=== PATIENT | female | born 1955 | race Caucasian/White ===

== ENCOUNTER 2016-05-11 13:45 | Inpatient (IN) | payer OTHER, MEDICARE ==
[~2016-05-11] VITALS: Ht 162.6 cm; Wt 98.5 kg
[~2016-05-11 13:45] MED LIST: BENA12.5 PO; EPIP0.3I IM; ERGO2000 PO; HYDR-3133 PO; LEVO-86 PO; LORA-361 PO; LORA-474 PO; OMEP20TA PO; ZENP PO; ZOLP10TA3 PO; ZYRT10CA PO
[2016-05-23] MEDS ORDERED: BETA0.0554 TOPICAL (10:47)
[2016-05-23] MEDS ORDERED: CHOL4POW3 PO (10:47)
[2016-05-23] MEDS ORDERED: TYLE325T PO (10:47)
[2016-05-23] MEDS ORDERED: CHOL5000 PO (13:49)
[2016-05-23] MEDS ORDERED: STOO100C PO (13:49)
[2016-05-24] MEDS ORDERED: SODIUM CHLORID 0.9% 500 ML IV SCH (05:45)
[2016-05-24] MEDS ORDERED: INSULIN HUMAN REGULAR 1,000 UNITS/10 ML VIAL SQ PRN (05:45)
[2016-05-24] MEDS ORDERED: METOPROLOL TARTRATE 25 MG TAB PO PRN (05:45)
[2016-05-24] MEDS ORDERED: VANCOMYCIN HCL 1000 MG ON-CALL/NS 250 ML IV SCH ×2 (05:45)
[2016-05-24 06:09] VITALS: BP 145/71; PULSE 81; RESP 18; TEMP 97.8; O2SAT 98
[2016-05-24] MEDS: LACTATED RINGER'S 1000 ML IV SCH (06:10)
[2016-05-24 06:43] LABS: AUTOMATED NEUTROPHIL # 2.6 TH/MM3 (1.8-7.7); BASOPHIL # 0.1 TH/MM3 (0-0.2); BASOPHIL % 1.1 % (0.0-2.0); EOSINOPHIL # 0.1 TH/MM3 (0-0.4); EOSINOPHIL % 1.9 % (0.0-4.0); HEMATOCRIT 36.5 % (35.0-46.0); HEMO FLAGS DIFF FINAL; LYMPH % 44.8 % (9.0-44.0); LYMPHOCYTE # 2.5 TH/MM3 (1.0-4.8); MEAN CELL VOLUME 80.7 FL (80.0-100.0); MEAN CORPUSCULAR HGB CONC 34.7 % (32.0-36.0); MONO % 6.6 % (0.0-8.0); NEUT % 45.6 % (16.0-70.0); PLATELET COUNT 208 TH/MM3 (150-450); RED BLOOD COUNT 4.52 MIL/MM3 (4.00-5.30); RED CELL DISTRIBUTION WIDTH 13.9 % (11.6-17.2); WHITE BLOOD COUNT 5.6 TH/MM3 (4.0-11.0)
[2016-05-24] MEDS ORDERED: MIDAZOLAM HCL 5 MG/5 ML VIAL ONE (06:43)
[2016-05-24] MEDS ORDERED: APREPITANT 40 MG CAP ONE (06:52)
[2016-05-24] MEDS ORDERED: BUPRENORPHINE HCL 0.3 MG/1 ML VIAL ONE (06:53)
[2016-05-24 06:54] LABS: BICARBONATE 26.5 MEQ/L (21.0-32.0); POTASSIUM 3.3 MEQ/L (3.5-5.1)
[2016-05-24] MEDS ORDERED: BUPIVACAINE LIPOSOME PF 1.3% 20 ML VIAL ONE (06:54)
[2016-05-24 06:59] LABS: APTT (PATIENT) 27.9 SEC (24.3-30.1); PROTHROMBIN TIME - PATIENT 11.4 SEC (9.8-11.6)
[2016-05-24] MEDS ORDERED: BUPIVACAINE/EPINEPHRINE 0.5% PF 30 ML VIAL ONE (07:07)
[2016-05-24] MEDS ORDERED: BUPIVACAINE/EPINEPHRINE 0.25% PF 30 ML VIAL ONE (07:07)
[2016-05-24] MEDS ORDERED: fentaNYL CITRATE 250 MCG/5 ML AMP ONE ×2 (07:23→08:50)
[2016-05-24] MEDS ORDERED: ONDANSETRON HCL 4 MG/2 ML VIAL IV PUSH ONE (08:53)
[2016-05-24] MEDS ORDERED: PHENYLEPH/NS 1000 MCG/10 ML SYR IV ONE (08:53)
[2016-05-24] MEDS ORDERED: NORMOSOL R INJ 1,000 ML IV ONE (08:53)
[2016-05-24] MEDS ORDERED: LACTATED RINGER'S 1000 ML INJ 2,000 ML IV ONE (08:53)
[2016-05-24] MEDS ORDERED: PROPOFOL 200 MG/20 ML AMP IV ONE (08:53)
[2016-05-24] MEDS ORDERED: SODIUM CHLORID 0.9% 500 ML INJ 500 ML IV ONE (08:53)
[2016-05-24] MEDS ORDERED: NEOSTIGMINE 3 MG/3 ML SYR IV ONE (08:53)
[2016-05-24] MEDS ORDERED: DO NOT ADM ANY ANTICOAGULANT DRUGS XX PRN (13:16)
--- NOTE | 2016-05-24 13:28 | HHI.PR ---
Immediate Post Op Note Procedure Date: May 24, 2016 Pre Op Diagnosis: (1) Ampullary adenoma Post Op Diagnosis: (1) Ampullary adenoma Surgeon: Bruno Beaulieu Climatology Teacher(s): staff Procedure: robotic assisted ampullectomy and placement of ampullary stent Findings: 1cm ampullary mass Complications: none Specimen(s) removed: ampullary adenoma Estimated blood loss: 50ml Anesthesia: General, Regional Block Drains: EMMA IVF Patient to: PACU Patient Condition: Good Bruno Beaulieu MD May 24, 2016 13:27
[2016-05-24] MEDS ORDERED: SODIUM CHLORIDE 0.9% FLUSH 5 ML FLUSH IVF PRN (13:30)
[2016-05-24] MEDS ORDERED: Post-op Orders (for Pharmacy) MISC XX ONE (13:30)
[2016-05-24] MEDS ORDERED: DEXTROSE 50% IN WATER 50 ML VIAL(D50) IV PUSH PRN (13:30)
[2016-05-24] MEDS ORDERED: NALOXONE HCL 0.4 MG/ML AMP IV PRN ×2 (13:30)
[2016-05-24] MEDS ORDERED: MORPHINE SULFATE 4 MG/ML INJ ONE (13:31)
[2016-05-24] MEDS: SODIUM CHLOR 0.9% 1000 ML INJ 1,000 ML IV SCH (13:45)
[2016-05-24] MEDS: PCA - TOTAL MG MORPHINE DELIVERED PER SHIFT SCH ×2 (14:00→21:56)
[2016-05-24] MEDS ORDERED: GLUCAGON 1 MG/ML VIAL OTHER PRN (14:00)
[2016-05-24] MEDS ORDERED: diphenhydrAMINE HCL 50 MG/ML VIAL IV PRN (14:00)
[2016-05-24] MEDS: ACETAMINOPHEN 1000 MG/100 ML VIAL IV SCH ×2 (14:09→19:58)
[2016-05-24] MEDS: metroNIDAZOLE 500 MG INJ 100 ML IV SCH ×2 (14:15→21:55)
[2016-05-24] MEDS: MORPHINE SULFATE 30 MG/30 ML PCA IV SCH (14:45)
[2016-05-24] MEDS: SODIUM CHLORIDE 0.9% FLUSH 5 ML FLUSH IVF SCH ×2 (15:00→19:59)
[2016-05-24 16:00] VITALS: BP 136/69; PULSE 87; RESP 17; TEMP 96.3; O2SAT 95
[2016-05-24] MEDS: INSULIN NovoLIN REGULAR SUPPLEMENTAL SCALE SQ SCH ×2 (16:00→20:06)
[2016-05-24] MEDS: PANTOPRAZOLE SODIUM 40 MG VIAL IV SCH (16:34)
[2016-05-24] MEDS: VANCOMYCIN INJ 1,000 MG in SODIUM CHLOR 0.9% 250 ML INJ 250 ML IV SCH (16:34)
[2016-05-24] MEDS: hydrOXYzine HCL 25 MG TAB PO SCH ×2 (16:50→21:55)
[2016-05-24 18:22] VITALS: O2SAT 95
[2016-05-24] MEDS: ONDANSETRON HCL 4 MG/2 ML VIAL IV PRN (19:59)
[2016-05-24] MEDS: LORATADINE 10 MG TAB PO SCH (19:59)
[2016-05-24 20:00] VITALS: BP 159/75; PULSE 90; RESP 18; TEMP 96.8; O2SAT 94
[2016-05-24 23:38] VITALS: BP 146/72; PULSE 86; RESP 18; TEMP 97.4; O2SAT 92
[2016-05-25] MEDS: ONDANSETRON HCL 4 MG/2 ML VIAL IV PRN ×2 (01:42→08:37)
[2016-05-25] MEDS: SODIUM CHLOR 0.9% 1000 ML INJ 1,000 ML IV SCH ×2 (01:42→08:55)
[2016-05-25] MEDS: ACETAMINOPHEN 1000 MG/100 ML VIAL IV SCH ×2 (01:42→08:36)
[2016-05-25] MEDS: VANCOMYCIN INJ 1,000 MG in SODIUM CHLOR 0.9% 250 ML INJ 250 ML IV SCH (03:06)
[2016-05-25] MEDS: LACTATED RINGER'S 1000 ML IV SCH (03:09)
[2016-05-25 04:00] VITALS: BP 111/61; PULSE 83; RESP 18; TEMP 97.7; O2SAT 92
[2016-05-25] MEDS: LEVOTHYROXINE SODIUM 150 MCG TAB PO SCH (04:06)
[2016-05-25] MEDS: metroNIDAZOLE 500 MG INJ 100 ML IV SCH (05:13)
[2016-05-25] MEDS: PCA - TOTAL MG MORPHINE DELIVERED PER SHIFT SCH ×3 (05:13→21:50)
[2016-05-25] MEDS: INSULIN NovoLIN REGULAR SUPPLEMENTAL SCALE SQ SCH ×4 (05:14→21:00)
[2016-05-25 06:06] LABS: AUTOMATED NEUTROPHIL # 11.4 TH/MM3 (1.8-7.7); BASOPHIL % 0.2 % (0.0-2.0); HEMATOCRIT 36.8 % (35.0-46.0); HEMO FLAGS DIFF FINAL; LYMPHOCYTE # 1.1 TH/MM3 (1.0-4.8); MEAN CELL VOLUME 82.6 FL (80.0-100.0); MEAN CORPUSCULAR HGB CONC 32.7 % (32.0-36.0); MONO % 6.1 % (0.0-8.0); NEUT % 85.7 % (16.0-70.0); PLATELET COUNT 240 TH/MM3 (150-450); RED BLOOD COUNT 4.46 MIL/MM3 (4.00-5.30); RED CELL DISTRIBUTION WIDTH 14.2 % (11.6-17.2); WHITE BLOOD COUNT 13.3 TH/MM3 (4.0-11.0)
[2016-05-25 06:42] LABS: BICARBONATE 26.9 MEQ/L (21.0-32.0); INDIRECT BILIRUBIN 0.3 MG/DL (0.0-0.8); POTASSIUM 3.7 MEQ/L (3.5-5.1); TOTAL BILIRUBIN ADULT 0.4 MG/DL (0.2-1.0)
--- NOTE | 2016-05-25 06:58 | MP ---
cc: JOSE D TWIARI DATE OF SURGERY 05/24/2016 PREOPERATIVE DIAGNOSIS Recurrent ampullary adenoma. POSTOPERATIVE DIAGNOSIS Recurrent ampullary adenoma. PROCEDURE 1. Robotic-assisted transduodenal ampullectomy 2. Placement of biliary stent SURGEON Jose D Tiwari MD ANESTHESIA General and regional tap block. BLOOD LOSS 50 cc COMPLICATIONS None FINDINGS Approximately a 1 cm irregular adenoma at the ampulla grossly completely excised with the ampule completely fulgurated 360 degrees around the biliary stent. INDICATIONS FOR PROCEDURE The patient is a 61-year-old female who has a history of ampullary adenoma. The patient has undergone several resections over the last several years and pathology has always returned adenoma. Despite multiple attempts at endoscopic section, the patient continues to fail this management. I had a discussion with the patient, the patient was referred for surgical evaluation. I discussed with the patient about the options including open versus robotic ampullectomy versus Whipple procedure and recommended a minimally invasive approach ampullectomy as the next mode of treatment. The patient does understand that this modality does also have a significant failure rate, however the patient would like to avoid major operations and Whipple procedure if it is possible. All questions were answered to her satisfaction and she agreed to the procedure. PROCEDURE After informed consent was obtained, the patient underwent a regional tap block and then was brought to the operating room theater and placed in a supine position and placed under general endotracheal anesthesia. The patient's abdomen was prepped and draped in a sterile fashion. The abdomen was entered through a Kenyon direct entry type technique. We made a small horizontal skin incision left of the umbilicus with a 15 blade scalpel. We dissected down into the subcutaneous tissue and directly spread open the anterior rectus sheath, the rectus muscles and the posterior rectus sheath. We then directly placed a 10-mm trocar into the abdomen under direct visualization. We insufflated the abdomen and placed a 5 mm camera. There was no evidence of any complication from entry. We then placed additional ports. We placed a 5 mm statistical assistant port in left lower quadrant, an 8 mm robot port in the left upper quadrant and two 8 mm robot ports in the right lower quadrant all under direct visualization with the laparoscope. We then docked SurveySnap SI robotic system without difficulty. We were able to use the robotic suction in arm three throughout the case, as well as fenestrated bipolar and graspers in arm two. We were able to use the vessel sealer device in arm one and dissect down the transverse colon and the hepatic flexure of the colon without difficulty. We also took down some adhesions from the patient's previous cholecystectomy. We were able to continue to dissect the transverse mesocolon off of the gastrocolic ligament and the head of the pancreas without difficulty. This completely exposed the first portion and the curved second portion of the duodenum without difficulty. We then were able to take the Bovie electrocautery and started dissecting the hook with monopolar electrocautery and opened the second portion of the duodenum for approximately 3 cm in length. We then were able to use the suction device to suction the biliary and the contents of the duodenum and visualized the mass. We then placed a 2-0 silk suture [id number] type stitch into the ampullar and the tumor and retracted this into our field. This gave us excellent exposure of the ampulla. We then used the hook with cautery to completely excise the adenoma and the ampulla in a cone type fashion. The majority of the tissue of the ampulla was of friable type adenoma and was rather obliterated with the cautery, but the remaining portion of the ampulla and ampullary adenoma was sent for permanent processing and pathology. At this point in time, there was no remaining adenoma and there was just cauterized tissue at the ampulla. We did place an 8.5 Japanese biliary stent into the lumen of the bile duct through the ampulla without difficulty. We had excellent flow of bile. At this point in time, we continued to fulgurate the tissue around the ampulla to try to reduce the risk of any remaining cells and any recurrence. Once we had an excellent technical result, we turned our attention towards closure. We did close the lateral portion of the duodenum in a transverse Heineke-Mekawitz type closure. We used interrupted 2-0 silk sutures to invert all mucosa and completely close the incision. We then used a second running 2-0 silk suture as a second layer Lembert type closure. We then placed a 19-Japanese round Karlo drain through one of the right lower quadrant port sites up to below the gallbladder fossa adjacent to our repair. We placed omentum back over this duodenum and turned our attention towards completion. We removed all ports and de-docked the robotic system. We expressed pneumoperitoneum from the patient and closed the fascia of the 10 mm camera port to the left of the umbilicus. This was closed with a 0 Vicryl [id number]-hs-[id number] suture. Skin was then closed with 4-0 Monocryl and Dermabond. The EMMA drain was sutured in place with a 3-[address] to bulb suction. The patient tolerated the procedure well. No apparent complications. All counts correct. I was present and scrubbed throughout the entire procedure. Of note, we did attempt to place an NG tube at the end of the procedure, however, I am unable to pass distally around the level of the GE junction. However, we decided to forego any further attempts as the patient had a decompressed stomach and this was not felt to be essential at this point in time. MD TREVOR Owen/CINTHIA /4:24 PM /6:33 AM BONNY
[2016-05-25] MEDS: MORPHINE SULFATE 30 MG/30 ML PCA IV SCH (07:12)
[2016-05-25 08:00] VITALS: BP 126/60; PULSE 85; RESP 17; TEMP 98.1; O2SAT 91
[2016-05-25] MEDS: CETIRIZINE HCL 10 MG TAB PO SCH (08:35)
[2016-05-25] MEDS: hydrOXYzine HCL 25 MG TAB PO SCH ×4 (08:50→21:00)
[2016-05-25] MEDS: SODIUM CHLORIDE 0.9% FLUSH 5 ML FLUSH IVF SCH ×2 (08:51→21:00)
[2016-05-25 12:00] VITALS: BP 106/53; PULSE 86; RESP 18; TEMP 97.5; O2SAT 95
[2016-05-25] MEDS: ENOXAPARIN SODIUM 40 MG/0.4 ML SYRINGE SQ SCH (12:53)
--- NOTE | 2016-05-25 13:05 | HHI.PR ---
Subjective Subjective Notes Resting in bed Slept well but currently in pain during my assessment Objective Vitals/I&O Vital Signs Date Time Temp Pulse Resp B/P Pulse Ox O2 Delivery O2 Flow Rate FiO2 05/25/16 12:00 97.5 86 18 106/53 95 05/24/16 18:22 Nasal Cannula 3.00 Labs Laboratory Tests Test 05/25/16 05:05 White Blood Count 13.3 Red Blood Count 4.46 Hemoglobin 12.0 Hematocrit 36.8 Mean Corpuscular Volume 82.6 Mean Corpuscular Hemoglobin 27.0 Mean Corpuscular Hemoglobin 32.7 Concent Red Cell Distribution Width 14.2 Platelet Count 240 Mean Platelet Volume 8.8 Neutrophils (%) (Auto) 85.7 Lymphocytes (%) (Auto) 8.0 Monocytes (%) (Auto) 6.1 Eosinophils (%) (Auto) 0.0 Basophils (%) (Auto) 0.2 Neutrophils # (Auto) 11.4 Lymphocytes # (Auto) 1.1 Monocytes # (Auto) 0.8 Eosinophils # (Auto) 0.0 Basophils # (Auto) 0.0 CBC Comment DIFF FINAL Differential Comment Sodium Level 137 Potassium Level 3.7 Chloride Level 103 Carbon Dioxide Level 26.9 Anion Gap 7 Blood Urea Nitrogen 14 Creatinine 0.57 Estimat Glomerular Filtration 107 Rate Random Glucose 134 Calcium Level 8.0 Total Bilirubin 0.4 Direct Bilirubin 0.1 Indirect Bilirubin 0.3 Aspartate Amino Transf 86 (AST/SGOT) Alanine Aminotransferase 110 (ALT/SGPT) Alkaline Phosphatase 89 Total Protein 6.5 Albumin 3.1 Cardiovascular: Regular Lungs: Clear Abdomen: Other (lap sites c/d/i), Post-op tenderness Extremities: No edema A/P Assessment and Plan 61 year old female POD1 robotic assisted ampullectomy and placement of ampullary stent -Strict NPO -OOB and mobilize -Continue IVF -BUSINESS TRANSFORMATION CONSULTANT for pain control Attending Statement The exam, history, and the medical decision-making described in the above note were completed with the assistance of the mid-level provider. I reviewed and agree with the findings presented. I attest that I had a [id number] encounter with the patient on the same day, and personally performed and documented my assessment and findings in the medical record. Abdominal exam non-surgical, EMMA benign, pain ok OOB today Rachel Flores May 25, 2016 13:05 Bruno Beaulieu MD May 29, 2016 00:42
[2016-05-25] MEDS ORDERED: PROMETHAZINE INJ 25 MG/ML VIAL IM PRN (13:15)
[2016-05-25] MEDS: PANTOPRAZOLE SODIUM 40 MG VIAL IV SCH (13:48)
[2016-05-25 16:00] VITALS: BP 136/63; PULSE 96; RESP 19; TEMP 98.9; O2SAT 90
[2016-05-25 18:23] VITALS: O2SAT 90
[2016-05-25 20:00] VITALS: BP 123/60; PULSE 76; RESP 17; TEMP 98; O2SAT 93
[2016-05-25] MEDS: LORATADINE 10 MG TAB PO SCH (21:00)
[2016-05-26] VITALS (8 sets, daily range): BP systolic 113–146; BP diastolic 57–79; PULSE 78–106; RESP 17–19; TEMP 97–101.3; O2SAT 86–95
[2016-05-26] MEDS: ONDANSETRON HCL 4 MG/2 ML VIAL IV PRN (03:55)
[2016-05-26] MEDS: LACTATED RINGER'S 1000 ML IV SCH ×2 (05:45→23:35)
[2016-05-26] MEDS: PCA - TOTAL MG MORPHINE DELIVERED PER SHIFT SCH ×3 (06:00→22:00)
[2016-05-26] MEDS: LEVOTHYROXINE SODIUM 150 MCG TAB PO SCH (06:00)
[2016-05-26] MEDS: MORPHINE SULFATE 30 MG/30 ML PCA IV SCH (06:28)
[2016-05-26] MEDS: INSULIN NovoLIN REGULAR SUPPLEMENTAL SCALE SQ SCH ×4 (06:42→21:00)
[2016-05-26] MEDS: SODIUM CHLOR 0.9% 1000 ML INJ 1,000 ML IV SCH ×2 (06:42→16:44)
[2016-05-26] MEDS: SODIUM CHLORIDE 0.9% FLUSH 5 ML FLUSH IVF SCH ×2 (08:00→21:00)
[2016-05-26] MEDS: hydrOXYzine HCL 25 MG TAB PO SCH ×4 (08:00→21:15)
[2016-05-26] MEDS: CETIRIZINE HCL 10 MG TAB PO SCH (08:00)
[2016-05-26] MEDS: ENOXAPARIN SODIUM 40 MG/0.4 ML SYRINGE SQ SCH (11:34)
[2016-05-26] MEDS: PANTOPRAZOLE SODIUM 40 MG VIAL IV SCH (14:49)
--- NOTE | 2016-05-26 14:49 | HHI.PR ---
Subjective Subjective Notes Resting in bed Tired Wants to get Andre out today Objective Vitals/I&O Vital Signs Date Time Temp Pulse Resp B/P Pulse Ox O2 Delivery O2 Flow Rate FiO2 05/26/16 14:00 14 05/26/16 12:00 100.9 106 133/65 92 05/25/16 18:23 Nasal Cannula 2.00 Cardiovascular: Regular Lungs: Clear Abdomen: Other (drain in place with SS drainage; incision site with skin glue c /d/i ) Extremities: No edema A/P Assessment and Plan 61 year old female POD2 robotic assisted ampullectomy and placement of ampullary stent -Strict NPO -OOB and mobilize----needs to be in chair at least twice daily and walk hallways at least 3 times day -Continue IVF -STRIP CLEANER for pain control -Ordered IS -Tylenol IV for fevers -DC Rachel Gray May 26, 2016 14:49
[2016-05-26] MEDS: ACETAMINOPHEN 1000 MG/100 ML VIAL IV PRN (14:51)
[2016-05-26] MEDS: LORATADINE 10 MG TAB PO SCH (21:15)
[2016-05-27] VITALS (7 sets, daily range): BP systolic 113–139; BP diastolic 62–80; PULSE 65–93; RESP 17–20; TEMP 97–99.4; O2SAT 92–97
[2016-05-27] MEDS: SODIUM CHLOR 0.9% 1000 ML INJ 1,000 ML IV SCH ×3 (03:00→21:04)
[2016-05-27] MEDS: PCA - TOTAL MG MORPHINE DELIVERED PER SHIFT SCH ×2 (05:28→22:00)
[2016-05-27] MEDS: LEVOTHYROXINE SODIUM 150 MCG TAB PO SCH (05:31)
[2016-05-27] MEDS: INSULIN NovoLIN REGULAR SUPPLEMENTAL SCALE SQ SCH ×4 (05:33→21:00)
[2016-05-27 07:39] LABS: AUTOMATED NEUTROPHIL # 10.6 TH/MM3 (1.8-7.7); BASOPHIL # 0.1 TH/MM3 (0-0.2); BASOPHIL % 0.8 % (0.0-2.0); EOSINOPHIL # 0.1 TH/MM3 (0-0.4); EOSINOPHIL % 0.7 % (0.0-4.0); HEMO FLAGS DIFF FINAL; LYMPH % 12.1 % (9.0-44.0); LYMPHOCYTE # 1.6 TH/MM3 (1.0-4.8); MEAN CELL VOLUME 81.9 FL (80.0-100.0); MEAN CORPUSCULAR HEMOGLOBIN 27.9 PG (27.0-34.0); MEAN CORPUSCULAR HGB CONC 34.1 % (32.0-36.0); MONO % 5.1 % (0.0-8.0); NEUT % 81.3 % (16.0-70.0); PLATELET COUNT 219 TH/MM3 (150-450); RED BLOOD COUNT 4.51 MIL/MM3 (4.00-5.30); RED CELL DISTRIBUTION WIDTH 14.6 % (11.6-17.2)
[2016-05-27 09:14] LABS: CALCIUM-PROTEIN CORRECTED 8.1 MG/DL (8.5-10.1); POTASSIUM 3.1 MEQ/L (3.5-5.1); TOTAL BILIRUBIN ADULT 0.6 MG/DL (0.2-1.0)
[2016-05-27] MEDS: CETIRIZINE HCL 10 MG TAB PO SCH (09:32)
[2016-05-27] MEDS: SODIUM CHLORIDE 0.9% FLUSH 5 ML FLUSH IVF SCH ×2 (09:32→21:08)
[2016-05-27] MEDS: hydrOXYzine HCL 25 MG TAB PO SCH ×4 (09:32→21:00)
[2016-05-27] MEDS: ACETAMINOPHEN 1000 MG/100 ML VIAL IV PRN ×2 (09:37→21:08)
[2016-05-27] MEDS: ENOXAPARIN SODIUM 40 MG/0.4 ML SYRINGE SQ SCH (11:24)
--- NOTE | 2016-05-27 12:24 | HHI.PR ---
Subjective Subjective Notes Less lethargic today No fevers today Just ordered breakfast Objective Vitals/I&O Vital Signs Date Time Temp Pulse Resp B/P Pulse Ox O2 Delivery O2 Flow Rate FiO2 05/27/16 08:35 99.4 79 20 132/63 97 05/25/16 18:23 Nasal Cannula 2.00 Labs Laboratory Tests Test 05/27/16 05/27/16 04:48 08:19 White Blood Count 13.0 Red Blood Count 4.51 Hemoglobin 12.6 Hematocrit 37.0 Mean Corpuscular Volume 81.9 Mean Corpuscular Hemoglobin 27.9 Mean Corpuscular Hemoglobin 34.1 Concent Red Cell Distribution Width 14.6 Platelet Count 219 Mean Platelet Volume 8.3 Neutrophils (%) (Auto) 81.3 Lymphocytes (%) (Auto) 12.1 Monocytes (%) (Auto) 5.1 Eosinophils (%) (Auto) 0.7 Basophils (%) (Auto) 0.8 Neutrophils # (Auto) 10.6 Lymphocytes # (Auto) 1.6 Monocytes # (Auto) 0.7 Eosinophils # (Auto) 0.1 Basophils # (Auto) 0.1 CBC Comment DIFF FINAL Differential Comment Sodium Level 139 Potassium Level 3.1 Chloride Level 104 Carbon Dioxide Level 27.0 Anion Gap 8 Blood Urea Nitrogen 7 Creatinine 0.43 Estimat Glomerular Filtration 149 Rate Random Glucose 113 Calcium Level 7.4 Protein Corrected Calcium 8.1 Total Bilirubin 0.6 Aspartate Amino Transf 34 (AST/SGOT) Alanine Aminotransferase 39 (ALT/SGPT) Alkaline Phosphatase 80 Total Protein 5.9 Albumin 2.3 Cardiovascular: Regular Lungs: Clear Abdomen: Other (incision c/d/i with skin glue; EMMA with SS drainage ) Extremities: No edema A/P Assessment and Plan 61 year old female POD3 robotic assisted ampullectomy and placement of ampullary stent -Advance to fulls -OOB and mobilize----needs to be in chair at least twice daily and walk hallways at least 3 times day -Continue IVF -PRIVATE DETECTIVE for pain control -Ordered IS -Tylenol IV for fevers Rachel Flores May 27, 2016 12:24
[2016-05-27] MEDS: PANTOPRAZOLE SODIUM 40 MG VIAL IV SCH (16:34)
[2016-05-27] MEDS: LORATADINE 10 MG TAB PO SCH (21:00)
[2016-05-28] VITALS: BP 131/63; PULSE 82; RESP 20; TEMP 97.9; O2SAT 93
[2016-05-28] MEDS: PCA - TOTAL MG MORPHINE DELIVERED PER SHIFT SCH ×2 (04:43→11:01)
[2016-05-28] MEDS: LEVOTHYROXINE SODIUM 150 MCG TAB PO SCH (04:43)
[2016-05-28] MEDS: ACETAMINOPHEN 1000 MG/100 ML VIAL IV PRN ×2 (04:44→11:00)
[2016-05-28] MEDS: LACTATED RINGER'S 1000 ML IV SCH (04:46)
[2016-05-28] MEDS: INSULIN NovoLIN REGULAR SUPPLEMENTAL SCALE SQ SCH ×4 (04:46→21:00)
[2016-05-28 08:00] VITALS: BP 129/62; PULSE 83; RESP 16; TEMP 98.6; O2SAT 94
[2016-05-28] MEDS: SODIUM CHLOR 0.9% 1000 ML INJ 1,000 ML IV SCH ×3 (08:10→17:03)
[2016-05-28] MEDS: hydrOXYzine HCL 25 MG TAB PO SCH ×4 (08:10→21:00)
[2016-05-28] MEDS: CETIRIZINE HCL 10 MG TAB PO SCH (08:10)
[2016-05-28] MEDS: SODIUM CHLORIDE 0.9% FLUSH 5 ML FLUSH IVF SCH ×2 (08:10→21:35)
[2016-05-28] MEDS: ENOXAPARIN SODIUM 40 MG/0.4 ML SYRINGE SQ SCH (11:01)
[2016-05-28 12:00] VITALS: BP 143/64; PULSE 79; RESP 20; TEMP 98.4; O2SAT 95
[2016-05-28 14:00] VITALS: BP 157/68; PULSE 79; RESP 20; TEMP 99; O2SAT 96
[2016-05-28] MEDS: PANTOPRAZOLE SODIUM 40 MG VIAL IV SCH (15:07)
--- NOTE | 2016-05-28 19:50 | HHI.PR ---
Subjective Subjective Notes pain ok, feels well, tolerating fulls Objective Vitals/I&O Vital Signs Date Time Temp Pulse Resp B/P Pulse Ox O2 Delivery O2 Flow Rate FiO2 05/28/16 14:00 99.0 79 20 157/68 96 05/27/16 18:35 21 05/25/16 18:23 Nasal Cannula 2.00 Cardiovascular: Regular Lungs: Clear Abdomen: Non-distended, Post-op tenderness Extremities: No edema, Perfused A/P Assessment and Plan 61yo female s/p robotic assisted ampullectomy, stable. tolerating fulls, likely DC tomorrow Bruno Beaulieu MD May 28, 2016 19:50
[2016-05-28 20:00] VITALS: BP 137/67; PULSE 82; RESP 20; TEMP 100.3; O2SAT 92
[2016-05-28] MEDS: LORATADINE 10 MG TAB PO SCH (21:00)
[2016-05-28] MEDS: ACETAMINOPHEN 500 MG CPLT PO PRN (21:25)
[2016-05-29] VITALS: BP 137/63; PULSE 68; RESP 18; TEMP 97.3; O2SAT 95
[2016-05-29] MEDS: SODIUM CHLOR 0.9% 1000 ML INJ 1,000 ML IV SCH (05:00)
[2016-05-29] MEDS: LEVOTHYROXINE SODIUM 150 MCG TAB PO SCH (06:16)
[2016-05-29] MEDS: ACETAMINOPHEN 500 MG CPLT PO PRN (06:17)
[2016-05-29] MEDS: INSULIN NovoLIN REGULAR SUPPLEMENTAL SCALE SQ SCH (06:18)
[2016-05-29] MEDS: hydrOXYzine HCL 25 MG TAB PO SCH (08:05)
[2016-05-29] MEDS: CETIRIZINE HCL 10 MG TAB PO SCH (08:06)
[2016-05-29] MEDS: SODIUM CHLORIDE 0.9% FLUSH 5 ML FLUSH IVF SCH (08:06)
--- NOTE | 2016-05-29 08:12 | HHI.PR ---
Subjective Subjective Notes no new c/o freddy PO well wants to go home Objective Vitals/I&O Vital Signs Date Time Temp Pulse Resp B/P Pulse Ox O2 Delivery O2 Flow Rate FiO2 05/29/16 00:00 97.3 68 18 137/63 95 05/27/16 18:35 21 05/25/16 18:23 Nasal Cannula 2.00 Cardiovascular: Regular Lungs: Clear Abdomen: Non-distended, Post-op tenderness Extremities: No edema, Perfused, SCD's on Narrative Exam incisions c/d/i A/P Assessment and Plan 61yo female s/p robotic assisted ampullectomy, stable. tolerating fulls, drain removed, DC home Bruno Beaulieu MD May 29, 2016 08:12
--- NOTE | 2016-05-29 08:20 | HHI.DS ---
Discharge Summary Admission Date May 24, 2016 at 05:08 Discharge Date: May 29, 2016 Admitting Diagnosis (1) Ampullary adenoma Diagnosis: Principal Procedures Robotic Assisted ampullectomy Brief History The patient is a 61y/o female with history of recurrent ampullary adenomas s/p multiple attempts at endoscopic resection. CBC/BMP: 05/27/16 0448 05/27/16 0819 Significant Findings Laboratory Tests Test 05/27/16 05/27/16 04:48 08:19 White Blood Count 13.0 TH/MM3 (4.0-11.0) Neutrophils (%) (Auto) 81.3 % (16.0-70.0) Neutrophils # (Auto) 10.6 TH/MM3 (1.8-7.7) Potassium Level 3.1 MEQ/L (3.5-5.1) Creatinine 0.43 MG/DL (0.50-1.00) Random Glucose 113 MG/DL (74-106) Calcium Level 7.4 MG/DL (8.5-10.1) Protein Corrected Calcium 8.1 MG/DL (8.5-10.1) Total Protein 5.9 GM/DL (6.4-8.2) Albumin 2.3 GM/DL (3.4-5.0) PE at Discharge incisions c/d/i Hospital Course The patient is a 61y/o female with history of recurrent ampullary adenomas s/p multiple attempts at endoscopic resection. She was brought to the operating room and underwent robotic ampullectomy without complication. She was admitted to the med/surg floor in stable condition. Her pain was controlled with oral and IV analgesia. She was OOB with staff. She was able to tolerate oral nutrition on POD#2. Her EMMA drain was benign and she had return of bowel function. She was discharged on 05/29/16 in stable condition. Pt Condition on Discharge: Good Discharge Disposition: Discharge Home Discharge Instructions DIET: Follow Instructions for: Full Liquid Diet Activities you can perform: Partial Weight Bearing Activities to Avoid: Weight Bearing, Strenuous Activity Bruno Beaulieu MD May 29, 2016 08:20
[2016-08-02] MEDS ORDERED: ACET500C PO (12:37)
== END 2016-05-29 09:13 | disposition home or self-care (01) | DRG 443 ==
LOC: HSDI 05-24 05:08 → N07A 05-24 15:27
PROVIDERS: ADMIT Surgery; ATTEND Surgery
PROC: 8E0W4CZ Robotic Assisted Procedure of Trunk Region, Percutaneous Endoscopic Approach (ICD-10-PCS; 2016-05-24)
PROC: 3E0T3CZ (ICD-10-PCS; 2016-05-24)
PROC: 0FB Hepatobiliary System and Pancreas, Excision (ICD-10-PCS; principal; 2016-05-24 07:34)
DX: D13.5 Benign neoplasm of extrahepatic bile ducts (principal); K21.9 Gastro-esophageal reflux disease without esophagitis
CPT/HCPCS: 80048; 80053; 80076; 82948; 85025; 85610; 85730; 86850; 86900; 86901; 86920; 88305; C2625; C9113; C9290; J0131; J0592; J1200; J1650; J2250; J2270; J2370; J2405; J2550; J2710; J3010; J3370; J7030; J7040; J7050; J7120; J8501

== ENCOUNTER → 2016-08-02 | Outpatient (CLI) | payer OTHER ==
[~2016-08-02] VITALS: Ht 162.6 cm; Wt 96.8 kg
[~2016-08-02] MED LIST changes: +ACET500C PO; +CHLORHEXIDINE GLUCONATE 2 % 1 PACK (2 CLOTHS) TOPICAL PRN; +CHOL4POW3 PO; +CHOL5000 PO; +DO NOT ADM ANY ANTICOAGULANT DRUGS PRN; +FAMOTIDINE 20 MG/2 ML VIAL ONE; +FLUMAZENIL 0.5 MG/5 ML VIAL IV PRN; +INSULIN HUMAN REGULAR 1,000 UNITS/10 ML VIAL SQ PRN; +IOHEXOL 350 MG/ML 100 ML BTL (for RAD DIAG) OTHER ONE; +LACTATED RINGER'S 1000 ML IV PRN; +METOPROLOL TARTRATE 25 MG TAB PO PRN; +MIDAZOLAM HCL 2 MG/2 ML VIAL ONE; +NALOXONE HCL 0.4 MG/ML AMP IV ONE; +NALOXONE HCL 0.4 MG/ML AMP IV PRN; +NEOSTIGMINE 3 MG/3 ML SYR IV ONE; +ONDANSETRON HCL 4 MG/2 ML VIAL IV PUSH ONE; +ONDANSETRON HCL 4 MG/2 ML VIAL ONE; +POVIDONE IODINE 5% (ANTISEPSIS KIT) 4 APPLICATIONS EACH NARE PRN; +PROPOFOL 200 MG/20 ML AMP IV ONE; +SODIUM CHLORID 0.9% 500 ML IV PRN; +STOO100C PO; +TYLE325T PO
[2016-08-02 12:38] VITALS: BP 135/72; PULSE 75; RESP 20; TEMP 98.7; O2SAT 96
--- NOTE | 2016-08-02 15:06 | RADRPT ---
EXAM DATE/TIME: 08/02/2016 14:22 [place] COMPARISON: No previous studies available for comparison. INDICATIONS : Adenoma. Choledocholithiasis. FLUORO TIME: 1.2 minutes IMAGE COUNT: 1 CONTRAST: Instilled by Ordering Physician MEDICAL HISTORY : Ampullary adenoma. SURGICAL HISTORY : None. ENCOUNTER: Initial ACUITY: 1 day PAIN SCORE: Non-responsive. LOCATION: Right upper quadrant abdomen FINDINGS: A single image taken at the time of ERCP shows a scope overlying the epigastrium. Contrast fills the intrahepatic and extrahepatic biliary tree. A Justin style balloon is seen involving the anterior po rtion of the common bile duct. No filling defects seen cephalad to the balloon. CONCLUSION: ERCP as above. Julian Blair Jr., MD on August 02, 2016 at 15:04 Board Certified Radiologist. This report was verified electronically.
[2016-08-02 15:55] VITALS: BP 142/78; PULSE 85; RESP 20; TEMP 98.6; O2SAT 95
== END ==
LOC: HSDC 11:44
DX: D13.5 Benign neoplasm of extrahepatic bile ducts (principal); K83.8 Other specified diseases of biliary tract
CPT/HCPCS: 00740; 43261; 43275; 74330; 88305; J2250; J2310; J2405; J2710; J3010; J7120; Q9967

== ENCOUNTER → 2017-01-25 | Outpatient (CLI) | payer OTHER ==
[~2017-01-25] VITALS: Ht 162.6 cm; Wt 97.8 kg
[~2017-01-25] MED LIST changes: -ACET500C PO; -BENA12.5 PO; +CETI10CA3 PO; -CHOL4POW3 PO; +CLAR10CA3 PO; +DIPH25CA PO; -DO NOT ADM ANY ANTICOAGULANT DRUGS PRN; -EPIP0.3I IM; -FAMOTIDINE 20 MG/2 ML VIAL ONE; -FLUMAZENIL 0.5 MG/5 ML VIAL IV PRN; -IOHEXOL 350 MG/ML 100 ML BTL (for RAD DIAG) OTHER ONE; +LIDOCAINE HCL 1% PF 5 ML AMPULE OTHER ONE; -LORA-361 PO; -MIDAZOLAM HCL 2 MG/2 ML VIAL ONE; -NALOXONE HCL 0.4 MG/ML AMP IV ONE; -NALOXONE HCL 0.4 MG/ML AMP IV PRN; -NEOSTIGMINE 3 MG/3 ML SYR IV ONE; -OMEP20TA PO; -ONDANSETRON HCL 4 MG/2 ML VIAL IV PUSH ONE; -ONDANSETRON HCL 4 MG/2 ML VIAL ONE; -STOO100C PO; -TYLE325T PO; -ZYRT10CA PO
--- NOTE | 2017-01-25 10:45 | GIPROC ---
[facility] [address] [facility]. [facility], [address] EGD PROCEDURE REPORT EXAM DATE: 01/25/2017 PATIENT NAME: Aby Yadav MR #: [id number] BIRTHDATE: 1955 ATTENDING: Paul Dhillon MD ORDER #: [id number] [employer] CREWMAN: Ly Coles and Prince Ly STATUS: outpatient INDICATIONS: The patient is a 61 yr old female here for an EGD due to recurrent ampullary adenoma PROCEDURE PERFORMED: EGD/duodenoscopy with biopsy MEDICATIONS: Per Anesthesia. TOPICAL ANESTHETIC: none CONSENT: The patient understands the risks and benefits of the procedure and understands that these risks include, but are not limited to: sedation, allergic reaction, infection, perforation and/or bleeding. Alternative means of evaluation and treatment include, among others: physical exam, x-rays, and/or surgical intervention. The patient elects to proceed with this endoscopic procedure. medical equipment was checked for proper function. Hand hygiene and appropriate measures for infection prevention was taken. After the risks, benefits and alternatives of the procedure were thoroughly explained, Informed consent was verified, confirmed and timeout was successfully executed by the treatment team. The patient was anesthetized with topical anesthesia and the Pentax [id number] endoscope was introduced through the mouth and advanced to the second portion of the duodenum. Retroflexion was performed The duodenoscope was advanced to the ampulla which revealed mildy prominent glandular tissue; biopsies were taken. The duodenoscope was then slowly withdrawn and removed. Prominent ampullary, glandular tissue was noted; biopsies were taken. ADVERSE EVENTS: There were no complications. IMPRESSIONS: As above RECOMMENDATIONS: Await biopsy results. Biopsy results will not be ready for 7-10 days. If you don't hear from us in two weeks, call our office for biopsy results. PATIENT CONDITION: stable DISPOSITION: Will proceed with colonoscopy REPEAT EXAM: Based on pathology Paul Dhillon MD eSigned: Paul Dhillon MD 01/25/2017 10:44 AM cc: Edgar Carrasquillo M.D.
--- NOTE | 2017-01-25 10:49 | GIPROC ---
[facility] [address] [facility]. [facility], [address] COLONOSCOPY PROCEDURE REPORT EXAM DATE: 01/25/2017 PATIENT NAME: Aby Yadav MR #: [id number] BIRTHDATE: 1955 ENDOSCOPIST: Paul Dhillon MD ORDER #: [id number] EVENT SPECIALIST: Ly Coles and Prince Ly STATUS: outpatient INDICATIONS: The patient is a 61 yr old female here for a colonoscopy due to history of colon polyps PROCEDURE PERFORMED: sigmoidoscopy MEDICATIONS: Per Anesthesia. PREP QUALITY: good ESTIMATED BLOOD LOSS: None CONSENT: The patient understands the risks and benefits of the procedure and understands that these risks include, but are not limited to: sedation, allergic reaction, infection, perforation and/or bleeding. Alternative means of evaluation and treatment include, among others: physical exam, x-rays, and/or surgical intervention. The patient elects to proceed with this endoscopic procedure. medical equipment was checked for proper function. Hand hygiene and appropriate measures for infection prevention was taken. After the risks, benefits and alternatives of the procedure were thoroughly explained, Informed consent was verified, confirmed and timeout was successfully executed by the treatment team. A digital exam The Pentax [id number] endoscope was introduced through the anus and advanced to the sigmoid colon; sharp angulation and scope rigidity prevented further safe insertion, despite turning the patient into the supine position. The instrument was then slowly withdrawn as the colon was fully examined. COLON FINDINGS: Mild diverticulosis was noted in the sigmoid colon. Retroflexion was not performed The scope was then completely withdrawn from the patient and the procedure terminated. ADVERSE EVENTS: There were no complications. IMPRESSIONS: Incomplete exam due to sharp sigmoid angulation and scope rigidity. Sigmoid diverticulosis RECOMMENDATIONS: High fiber diet We'll contact the patient after I review the old records to coordinate a follow up exam. RECALL: Paul Dhillon MD eSigned: Paul Dhillon MD 01/25/2017 10:49 AM cc: Edgar Carrasquillo M.D.
[2017-01-25 10:53] VITALS: BP 142/73; PULSE 69; RESP 20; O2SAT 98
== END ==
LOC: HEND 07:41
DX: D13.5 Benign neoplasm of extrahepatic bile ducts (principal); K21.9 Gastro-esophageal reflux disease without esophagitis; K57.30 Diverticulosis of large intestine without perforation or abscess without bleeding; K58.0 Irritable bowel syndrome with diarrhea; R10.9 Unspecified abdominal pain; E11.9 Type 2 diabetes mellitus without complications; Z86.010 Personal history of colon polyps
CPT/HCPCS: 00740; 43239; 45330; 88305; J7120

== ENCOUNTER → 2017-06-02 | Outpatient (CLI) | payer OTHER ==
[~2017-06-02] MED LIST changes: +CHOL4POW3 PO; -CHOL5000 PO; +CIPR250T52 PO; -DIPH25CA PO; -ERGO2000 PO; -HYDR-3133 PO; -INSULIN HUMAN REGULAR 1,000 UNITS/10 ML VIAL SQ PRN; -LEVO-86 PO; +LEVO150T7 PO; -LIDOCAINE HCL 1% PF 5 ML AMPULE OTHER ONE; +LIDOCAINE HCL 1% PF 5 ML SYRINGE OTHER ONE; +METR250T23 PO; +SULF1TAB23 PO; +TYLE325T PO; +VITA500012 PO; +VITATAB56 PO; +[UNRECOGNIZED DRUG - OTHER] PO
[2017-06-02 08:21] VITALS: BP 147/80; PULSE 72; RESP 18; TEMP 98.5; O2SAT 98
[2017-06-02 09:47] VITALS: BP 138/91; PULSE 78; RESP 20; TEMP 97.8; O2SAT 97
--- NOTE | 2017-06-02 13:05 | MR ---
cc: Pual Dhillon MD,Paul Beaulieu,Bruno Carrasquillo,Mat Bowen MD 06/02/2017 PROCEDURE: Panendoscopy and duodenoscopy with ampullary biopsies performed by Dr. Paul Dhillon. The patient is an outpatient. INDICATIONS FOR PROCEDURE: Recurrent ampullary adenoma, occasionally with dysplasia. She has undergone endoscopic ampullectomies as well as one surgical ampullectomy and has recurrent adenomatous tissue at the ampulla. MEDICATIONS: Sedation per Anesthesiology. INSTRUMENTS: Pentax video gastroscope and video duodenoscope. PROCEDURE: After obtain written informed consent, the patient was placed in the left lateral decubitus position. Adequate sedation was administered. The video gastroscope was passed under direct vision through the oropharynx into the esophagus, which appeared normal along its entire extent. The Z line appeared normal at the GE junction at 35 cm. The gastric mucosa was examined carefully including views of the cardia and fundus with retroflexion. The pylorus, duodenal bulb and appear normal. The endoscope was withdrawn. The video duodenoscope was passed per os through the oropharynx into the esophagus, stomach and duodenum. The ampulla again looked quite villous. Bile was seen emanating from a small orifice just proximal to the adenomatous appearing tissue. Multiple biopsies were taken. The instrument was withdrawn and the procedure was terminated. She tolerated it well and there were no apparent complications. Upon completion, she was sedated and had normal stable vital signs. IMPRESSION: 1. Normal esophageal mucosa. 2. Normal Z line at the gastroesophageal junction at 35 cm. 3. Normal gastral mucosa, pylorus and duodenum. 4. Prominent ampullary tissue with a villous appearance, multiple biopsies taken. DISPOSITION: The patient is to be observed per routine post procedure protocol. She may return home, resume her prior diet and medications. We will contact her with the biopsy report next week and determine further plans. MD CAYLA Andrew/LENKA , 09:26 AM , 01:03 PM [facility]ITALNimisha
--- NOTE | 2017-06-02 17:54 | EKG ---
Date Performed: 06/02/2017 Time Performed: 08:20:56 PTAGE: 62 years EKG: Sinus rhythm WITH SINUS ARRHYTHMIA BORDERLINE RIGHT AXIS DEVIATION NONSPECIFIC T-WAVE ABNORMALITY BORDERLINE ECG Compared to PREVIOUS TRACING , the patient has new nonspecific ST-T wave changes. PREVIOUS TRACIN 04/25/2015 09.06 DOCTOR: Abida Galo Interpretating Date/Time 06/02/2017 17:54:09
== END ==
LOC: HSDC 07:31
DX: D13.5 Benign neoplasm of extrahepatic bile ducts (principal); I49.8 Other specified cardiac arrhythmias
CPT/HCPCS: 88305; 93005

== ENCOUNTER 2017-10-18 05:37 | Inpatient (IN) ==
[2017-10-18] MEDS ORDERED: ceFAZolin 2 GM Premix Inj 2 GM/50 ML PIGGYBACK IV.SIG ONE (06:29)
[2017-10-18] MEDS ORDERED: Chlorhexidine Gluconate 2% 1 Pack (2 Cloths) TOPICAL SCH (06:45)
[2017-10-18] MEDS ORDERED: Metoprolol Tartrate 25 MG Tablet PO SCH (06:45)
[2017-10-18 06:47] LABS: Baso % (Auto) 0.7 % (0.0-2.0); Eos # (Auto) 0.2 th/mm3 (0.0-0.4); Eos % (Auto) 2.7 % (0.0-4.0); Hematocrit 36.9 % (35.0-46.0); Hemoglobin 12.3 gm/dL (11.6-15.3); Lymph # (Auto) 2.1 th/mm3 (1.0-4.8); Lymph % (Auto) 35.4 % (9.0-44.0); Mean Corpuscular HGB Conc 33.3 % (32.0-36.0); Mean Corpuscular Hemoglobin 25.8 pg (27.0-34.0); Mean Corpuscular Volume 77.7 fL (80.0-100.0); Mean Platelet Volume 8.6 fL (7.0-11.0); Mono # (Auto) 0.3 th/mm3 (0.0-0.9); Mono % (Auto) 5.3 % (0.0-8.0); Neut # (Auto) 3.3 th/mm3 (1.8-7.7); Neut % (Auto) 55.9 % (16.0-70.0); Platelet Count 274 th/mm3 (150-450); Red Blood Count 4.75 mil/mm3 (4.00-5.30); Red Cell Distribution Width 14.4 % (11.6-17.2); White Blood Count 5.9 th/mm3 (4.0-11.0)
[2017-10-18] MEDS ORDERED: Ciprofloxacin 400 MG/200 ML 400 MG/200 ML PIGGYBACK IV.SIG SCH ×2 (07:00→20:00)
[2017-10-18] MEDS ORDERED: Sodium Chlor 0.9% Inj 500 ML IV.SIG SCH (07:00)
[2017-10-18 07:06] LABS: Alanine Aminotransferase 23 U/L (10-53)
[2017-10-18 07:08] LABS: Alkaline Phosphatase 96 U/L (45-117); Total Protein 7.1 g/dL (6.4-8.2)
[2017-10-18 07:13] LABS: Albumin 3.3 g/dL (3.4-5.0); Anion Gap 11 meq/L (5-15); Aspartate Aminotransferase 33 U/L (15-37); Blood Urea Nitrogen 13 mg/dL (7-18); Calcium 9.2 mg/dL (8.5-10.1); Carbon Dioxide 24.1 meq/L (21.0-32.0); Chloride 106 meq/L (98-107); Glomerular Filtration Rate Greater Than 89 mL/min (>89); Glucose,Random 139 mg/dL (74-106); Potassium 4.1 meq/L (3.5-5.1); Sodium 141 meq/L (136-145)
[2017-10-18] MEDS ORDERED: Bupivacaine Liposomal PF 1.3% Inj 20 ML Vial ONE (07:23)
[2017-10-18 07:27] LABS: Activated Partial Thrombo Time 27.4 sec (24.3-30.1); INR 1.1 Ratio; Prothrombin Time 10.9 sec (9.8-11.6)
[2017-10-18] MEDS ORDERED: Sugammadex Inj 200 MG/2 ML Vial IV.PUSH ONE (07:57)
[2017-10-18 11:05] LABS: ABG Base Excess -0.9 mmol/L (-2-2); ABG PCO2 40 mmHg (38-42); ABG PO2 193 mmHG (61-120)
[2017-10-18] MEDS ORDERED: Post-op Orders (for Pharmacy) OTHER ONE (14:57)
[2017-10-18] MEDS ORDERED: Naloxone Inj 0.4 MG/ML Vial IV.PUSH PRN ×2 (14:57→15:52)
[2017-10-18] MEDS ORDERED: Promethazine 25 MG Supp RECTAL PRN (14:57)
[2017-10-18] MEDS ORDERED: Enoxaparin Inj 40 MG/0.4 ML Syringe SQ ONE (15:04)
[2017-10-18] MEDS ORDERED: fentaNYL Citrate Inj 100 MCG/2 ML Ampul ONE ×2 (15:12→15:13)
[2017-10-18] MEDS ORDERED: Lidocaine PF 1% Inj 5 ML Syringe INFILTRATN ONE (15:18)
[2017-10-18] MEDS ORDERED: Phenylephrine/NS 1000 MCG/10ML Syringe IV.PUSH ONE (15:18)
[2017-10-18] MEDS ORDERED: *Meperidine Inj 25 MG/ML Vial PERIprocedural Use ONLY ONE (15:38)
[2017-10-18] MEDS ORDERED: HYDROmorphone PCA Inj 6 MG/30 ML PCA.VIAL PCA ONE (16:15)
[2017-10-18] MEDS ORDERED: HYDROmorphone PF Inj 2 MG/ML Vial ONE (16:15)
[2017-10-18] MEDS ORDERED: Dextrose 50% in Water 50 ML Vial IV.PUSH PRN (16:27)
[2017-10-18] MEDS: HYDROmorphone PCA Inj 6 MG/30 ML PCA.VIAL PCA PRN (16:33)
[2017-10-18] MEDS: Sod Chloride 0.9% Inj 1,000 ML IV.CONT SCH (16:34)
--- NOTE | 2017-10-18 16:38 | P.CONCC ---
History of Present Illness Service: Critical care medicine Consult date: 10/18/17 Requesting Physician: Bruno Beaulieu Reason for Consult: Critical care management Primary Care Provider: Celina Carrasquillo MD Family Provider: Celina Carrasquillo MD Chief Complaint: Status post Whipple for recurrent ampullary tumor History of Present Illness: This is a 62-year-old female. Date of admission 10/18/2017. Date of consultation 10/18/2017. Past medical history includes fibromyalgia, bipolar disorder, depression/anxiety, dyslipidemia, prior history of tobaccoism 20 pack years quit 2 years ago, allergic rhinitis, osteoporosis/osteoarthritis, chronic constipation, hypothyroidism, insomnia, diabetes mellitus, chronic benzodiazepine use, oropharyngeal dysphagia, gastroesophageal reflux disease and right popliteal lipoma. Patient was originally diagnosed with an ampullary tumor 2008. Was followed by Dr. Frazier. Patient had recurrent dilatations. Patient had a Whipple procedure 05/2016. Due to her underlying hematology patient underwent another Whipple procedure today 10/19/[address] Beaulieu Received 4800 cc crystalloid. EBL 100 cc. 500 cc urine output. Patient received 400 mg of ciprofloxacin in surgery. She currently has a new GJ tube. She has 2 JPs with serosanguineous drainage in the right upper quadrant/ midline. There is a abhilash drain in place. Dressing is clean dry and intact. She is currently arousable on 3 L nasal cannula in no acute distress. A hydromorphone PRESCRIPTION CLERK LENSES is about to be initiated. Preoperative labs revealed a microcytosis only. She also slightly elevated blood sugar for diet-controlled diabetes. Review of Systems unobtainable due to mental status PMFSH - History History Provided By: Patient - Medical History Medical History: Medical History (Last Reviewed 10/18/17 @ 16:34 by Julio Stahl MD) Cholecystectomy planned H/O endoscopy H/O thyroidectomy H/O: hysterectomy Abdominal pain Anxiety Bursitis of right shoulder Bursitis of shoulder, left Dry eyes Fibromyalgia GERD (gastroesophageal reflux disease) H/O acute pancreatitis High cholesterol History of anesthesia reaction Pancreatic abnormality Seasonal allergies Thyroid disease Wears glasses - Surgical History Surgical History: Surgical History (Last Reviewed 10/18/17 @ 16:35 by Julio Stahl MD) H/O arthroscopy of shoulder History of carpal tunnel release History of partial hysterectomy - Tobacco History Second Hand Smoke Exposure: No Tobacco Use In Past 30 Days: No Smoking Status: Former smoker Years Smoked: 20 Number of Pack Years (if former smoker): 20 - Alcohol History How Often Do You Have a Drink Containing Alcohol: Never - Substance Use History Substance History: No History of Abuse - Travel History Recent Travel in the [facility] Within the Last 8 Weeks: No Medications and Allergies Active Medications: Active Medications Chlorhexidine Gluconate (Chlorhexidine 2% Cloth) 3 pack TOPICAL ACCOUNT SUPPORT REP [facility] Stop: 10/21/17 06:38 Last Admin: 10/18/17 07:14 Dose: 3 pack Dextrose (D50w Vial) 50 ml IV.PUSH UNSCH PRN PRN Reason: PER HYPOGLYCEMIA PROTOCOL Dextrose (D50w Vial) 50 ml IV.PUSH UNSCH PRN PRN Reason: PER HYPOGLYCEMIA PROTOCOL Glucagon (Glucagon Inj) 1 mg OTHER PRN PRN PRN Reason: for Hypoglycemia Protocol Glucagon (Glucagon Inj) 1 mg OTHER PRN PRN PRN Reason: for Hypoglycemia Protocol Lactated Ringer's (Lr 1000 Ml Inj) 1,000 mls @ 30 mls/hr IV.SIG .Q24H [facility] Stop: 10/21/17 06:38 Last Infusion: 10/18/17 10:30 Dose: Infused Sodium Chloride (Ns Inj) 500 mls @ 30 mls/hr IV.SIG .Q10H [facility] Stop: 10/21/17 06:38 Ciprofloxacin/Dextrose (Cipro 400 Mg/200 Ml Inj) 400 mg in 200 mls @ 200 mls/ hr IV.SIG ACCOUNT SUPPORT REP [facility] Stop: 10/19/17 06:59 Last Admin: 10/18/17 07:24 Dose: 200 mls/hr Sodium Chloride (Ns Inj) 1,000 mls @ 100 mls/hr IV.CONT .Q10H [facility] Ciprofloxacin/Dextrose (Cipro 400 Mg/200 Ml Inj) 400 mg in 200 mls @ 200 mls/ hr IV.SIG Q12H [facility] Stop: 10/19/17 08:59 Metronidazole/Sodium Chloride (Flagyl 500 Mg Inj) 100 mls @ 200 mls/hr IV.SIG Q8H [facility] Stop: 10/19/17 08:29 Fluconazole (Diflucan 400 Mg Premix Bag) 200 mls @ 100 mls/hr IV.SIG ONCE ONE Stop: 10/18/17 17:51 Hydromorphone/Sodium Chloride (Dilaudid Bedspring Assembler Inj) 6 mg in 30 mls @ 0 mls/hr PRESCRIPTION CLERK LENSES UNSCH PRN PRN Reason: per PRESCRIPTION CLERK LENSES parameters Acetaminophen (Ofirmev Inj) 1,000 mg in 100 mls @ 400 mls/hr IV.SIG Q6H [facility] Stop: 10/19/17 10:14 Insulin Aspart (Novolog Insulin Correctional Sugar Inj) 0 unit SQ Q6HR [facility]; Protocol Metoprolol Tartrate (Lopressor) 25 mg PO ACCOUNT SUPPORT REP [facility] Stop: 10/21/17 06:38 Naloxone HCl (Narcan Inj) 0.4 mg IV.PUSH UNSCH PRN PRN Reason: SEE LABEL COMMENTS Naloxone HCl (Narcan Inj) 0.4 mg IV.PUSH PRN PRN PRN Reason: SEE LABEL COMMENTS Nystatin (Mycostatin Cream) 1 applicatio TOPICAL BID [facility] Ondansetron HCl (Zofran Odt) 4 mg PO Q6H PRN PRN Reason: NAUSEA OR VOMITING Ondansetron HCl (Zofran Inj) 4 mg IV.PUSH Q6H PRN PRN Reason: NAUSEA OR VOMITING Pantoprazole Sodium (Protonix Inj) 40 mg IV.PUSH Q24H [facility] Povidone Iodine (Betadine 5% Antisepsis Kit) 1 applicatio EACH NARE ACCOUNT SUPPORT REP [facility] Stop: 10/21/17 06:38 Last Admin: 10/18/17 07:14 Dose: 1 applicatio Promethazine HCl (Phenergan) 25 mg PO Q6H PRN PRN Reason: NAUSEA OR VOMITING Promethazine HCl (Phenergan Supp) 25 mg RECTAL Q6H PRN PRN Reason: NAUSEA OR VOMITING Allergies Allergy/AdvReac Type Severity Reaction Status Date / Time amitriptyline Allergy Severe Anaphylaxis Verified 10/16/17 14:14 cefaclor Allergy Severe Anaphylaxis Verified 10/16/17 14:14 doxepin Allergy Severe Anaphylaxis Verified 10/16/17 14:14 gold sodium thiomalate Allergy Severe Anaphylaxis Verified 10/16/17 13:49 Influenza Virus Vaccines Allergy Severe Anaphylaxis Verified 10/16/17 14:14 levothyroxine Allergy Severe Anaphylaxis Verified 10/16/17 14:14 morphine Allergy Severe Hallucinati Verified 06/02/17 08:11 ons nickel Allergy Severe Anaphylaxis Verified 10/16/17 14:14 penicillin G Allergy Severe Anaphylaxis Verified 10/16/17 14:14 trazodone Allergy Severe Anaphylaxis Verified 10/16/17 14:14 metformin AdvReac Severe Anaphylaxis Verified 10/16/17 14:14 p-phenylenediamine Allergy Severe Anaphylaxis Uncoded 10/16/17 14:14 Home Medications Medication Instructions Recorded Confirmed Type acetaminophen [Tylenol] 325 mg PO TID PRN 10/16/17 10/18/17 History cetirizine [Zyrtec] 10 mg PO DAILY 10/16/17 10/18/17 History cholecalciferol (vitamin D3) 5,000 unit PO DIRECTED 10/16/17 10/18/17 History [Vitamin D3] cholestyramine (with sugar) 4 g PO TID 10/16/17 10/18/17 History ciprofloxacin HCl [Cipro] 250 mg PO DIRECTED 10/16/17 10/18/17 History diphenhydramine HCl [Children's 12.5 mg PO TID PRN 10/16/17 10/18/17 History Allergy (diphenhyd)] docusate sodium 100 mg PO DAILY PRN 10/16/17 10/18/17 History ergocalciferol (vitamin D2) 50,000 unit PO 3XW 10/16/17 10/18/17 History [Vitamin D2] hydroxyzine HCl 25 mg PO QID PRN 10/16/17 10/18/17 History levothyroxine [Synthroid] 75 mcg PO WE 10/16/17 10/18/17 History levothyroxine [Synthroid] 150 mcg PO DIRECTED 10/16/17 10/18/17 History loratadine [Claritin] 10 mg PO HS 10/16/17 10/18/17 History lorazepam 1 mg PO QID PRN 10/16/17 10/18/17 History metronidazole [Flagyl] 250 mg PO DIRECTED 10/16/17 10/18/17 History nystatin 1 applic TOPICAL BID 10/16/17 10/18/17 History omega [id number]-iqm-[id number]-fish oil [Fish Oil] 1 cap PO DAILY 10/16/17 10/18/17 History omeprazole 20 mg PO DAILY 10/16/17 10/18/17 History sulfamethoxazole-trimethoprim 1 tab PO DIRECTED 10/16/17 10/18/17 History [Bactrim DS] zolpidem [Ambien] 1 tab PO HS 10/16/17 10/18/17 History Physical Exam Vital signs: Vital Signs 10/18/17 06:49 10/18/17 15:08 Temperature 98.3 F Pulse Rate 88 Respiratory Rate 18 Blood Pressure 143/66 H Pulse Oximetry 95 98 Intake & Output 10/17/17 10/18/17 10/18/17 18:59 06:59 18:59 Intake Total 4800 / 4800 Output Total 600 / 600 Balance 4200 / 4200 Weight 101.5 kg Intake: IV 1000 / 1000 LR 1000 mL Inj 1,000 ML @ 30 1000 / 1000 mls/hr IV.SIG .Q24H [facility] Rx#: [id number] Anesthesia Amount 3800 / 3800 Output: Estimated Blood Loss 100 / 100 Urine Amount (Catheter) 500 / 500 Indwelling Urethral Catheter 500 / 500 Other: Weight On Admission 101.5 kg - Constitutional no acute distress, obese - Routine HEENT Exam Head: Present: normocephalic, atraumatic. Absent: facial swelling Eye: Present: EOMI, PERRL. Absent: conjunctival icterus, periorbital swelling ENT: Present: mucous membranes moist. Absent: mucous membranes dry - Routine Neck Exam Present: supple, trachea midline. Absent: JVD, tenderness, swelling - Routine Respiratory Exam Present: CTA bilaterally. Absent: rhonchi, wheezes, crackles - Routine Cardiovascular Exam Present: RRR, S1, S2. Absent: murmur, gallop, rubs - Routine Abdominal Exam Present: soft, surgical scars, drain. Absent: tenderness - Routine Exam Patient deferred: external exam, groin exam, perineal exam - Routine Extremities Exam Present: edema. Absent: cyanosis, clubbing - Routine Skin Exam Present: intact, dry, warm. Absent: lesions - Routine Neurological Exam Present: CN II-XII intact, normal reflexes, altered mental status, moving all extremities. Absent: pronator drift - Detailed Neurological Exam: Coma Scale Eye Opening: Spontaneous Verbal Response: Confused Motor Response: Obey commands [place] Coma Scale Total: 14 - Urinary Catheter Management Indwelling Urethral Catheter Cath placed during this visit: yes Urethral indwelling: Yes Reason for continuing: Hourly intake/output Insertion date: 10/18/17 Insertion time: 09:00 Assessment and Plan - Assessment and Plan Plan: Neuro/Psych: Depression/anxiety Bipolar disorder NOS Fibromyalgia Chronic benzodiazepine use Insomnia Patient's home medications include lorazepam 2 mg 4 times daily, hydroxyzine 25 mg 4 times daily. These have been held postoperatively Holding Diphendydramine 12.5 mg 3 times daily/home medication Receiving schedule Ofirmev 1 g IV every 6 hours per general surgery Holding zolpidem 10 mg at night as needed insomnia. Will be started on a hydromorphone PRESCRIPTION CLERK LENSES drip per general surgery Holding loratadine 10 mg daily, cetirizine 10 mg daily for allergic rhinitis. CV: History of dyslipidemia Holding omega-3 fish oil. Currently on normal saline at 100 cc an hour. Currently not requiring vasopressors and/or antihypertensives Resp: Tobaccoism Nasal cannula to maintain saturations greater than or equal to 92% Incentive spirometry while awake As needed albuterol therapy every 2 hours Tobacco self evaluation/cessation booklet will be provided when patient is able to interact Follow-up on chest x-ray in a.m. GI: Postop day #0 Whipple/open due to recurrent ampullary tumor with GJ tube Prior Whipple 05/2016 History of pancreatitis Chronic constipation Gastroesophageal reflux disease History of dysphasia Currently on pantoprazole 40 mg IV daily./Home medication omeprazole 20 mg daily for gastroesophageal reflux disease Holding cholestyramine 4 g 3 times daily and docusate sodium 100 mg twice daily for constipation. Postoperative management per general surgery : Powell catheter has been placed for accurate I's and O's in a postoperative patient Endo: Diabetes mellitus type 2/diet-controlled Hypothyroidism Sliding scale insulin with aspart insulin Accu-Cheks every 6 hours to maintain euglycemia/low regimen Patient is on levothyroxine 75 mcg through 10/21? Then on 150 mcg daily?. Medicine reconciliation. Currently holding. Might need IV while n.p.o. but there is a drug shortage. Check TSH in a.m. Renal: Preoperative creatinine within normal limits Monitor urine output Accurate I's and O's BMP, magnesium phosphorus in a.m. 10/19 Heme: Microcytosis History of ampullary tumor since 2008 Monitor CBC daily. Follow trend ID: Currently on ciprofloxacin 400 mg IV twice daily, fluconazole 40 mg daily and metronidazole 500 mg every 8 hours per general surgery. FEN: Replace electrolytes as clinically indicated per ICU electrolyte protocol MSK: Osteoporosis/osteoarthritis Elevated BMI History of right popliteal lipoma status post excision PT evaluate and treat Weight loss encouraged Holding ergocalciferol 50,000 units q. Monday and cholecalciferol 5000 units daily. Resume when okay with surgery Access -Right IJ CVL placed in OR 10/18 -Right radial arterial line placed in OR 10/18 Prophylaxis -GI -pantoprazole -DVT -SCD/pharmacological prophylaxis when okay with Dr. Beaulieu Level 2 consult Code Status: full code
[2017-10-18] MEDS ORDERED: Potassium Phosphate 500 MG Soluble Tablet PO PRN ×2 (16:46)
[2017-10-18] MEDS ORDERED: Sodium Phosphate Inj 30 MMOL in Sodium Chlor 0.9% Inj 250 ML IV.SIG PRN (16:46)
[2017-10-18] MEDS ORDERED: Magnesium Sulfate Inj 2 GM in Sodium Chlor 0.9% Inj 96 ML IV.SIG PRN (16:46)
[2017-10-18] MEDS ORDERED: Magnesium Oxide 400 MG Tablet PO PRN (16:46)
[2017-10-18] MEDS ORDERED: Magnesium Sulfate Inj 4 GM in Sodium Chlor 0.9% Inj 92 ML IV.SIG PRN (16:46)
[2017-10-18] MEDS ORDERED: Potassium Phosphate Inj 30 MMOL in Sodium Chlor 0.9% Inj 250 ML IV.SIG PRN (16:46)
[2017-10-18] MEDS ORDERED: Potassium Chlor 40 mEq Premix 40 MEQ/100 ML PIGGYBACK IV.SIG PRN (16:46)
--- NOTE | 2017-10-18 16:48 | XR ---
EXAM DATE: 10/18/2017 3:42 PM EDT AGE/SEX: 62 years / Female INDICATIONS: . Central line placement. CLINICAL DATA: This is the patient's subsequent encounter. Patient reports that signs and symptoms h ave been present for 2 days and indicates a pain score of 3/10. MEDICAL/SURGICAL HISTORY: None. None. COMPARISON: POI, XR CHEST PA AND LAT, 08/21/2017. . FINDINGS: Right IJ central line with tip near atriocaval junction. Minimal linear parenchymal opacities at the left lung base. No significant pneumothorax. Cardiomediastinal contours are within normal limits. Rem ainder of the exam is unchanged. CONCLUSION: 1. Right IJ central line in good position without pneumothorax. 2. Minimal left lung base atelectasis. Electronically signed by: Otto Luo MD 10/18/2017 4:46 PM EDT
[2017-10-18] MEDS ORDERED: *Ondansetron Inj 4 MG/2 ML Vial PERIprocedural Use ONLY ONE (18:05)
[2017-10-19] MEDS: Sod Chloride 0.9% Inj 1,000 ML IV.CONT SCH ×3 (01:33→23:48)
--- NOTE | 2017-10-19 05:36 | XR ---
EXAM DATE: 10/19/2017 5:19 AM EDT AGE/SEX: 62 years / Female INDICATIONS: . Shortness of breath CLINICAL DATA: This is the patient's subsequent encounter. Patient reports that signs and symptoms h ave been present for 2 days and indicates a pain score of 2/10. MEDICAL/SURGICAL HISTORY: None. None. COMPARISON: C, CHEST 1V SINGLE AP, 10/18/2017. . FINDINGS: Right central line in superior vena cava. Minimal basilar atelectasis. No effusion or pneumothorax. H eart size upper limits normal. CONCLUSION: Right central line in superior vena cava. Minimal basilar atelectasis. Electronically signed by: Rico Neil MD 10/19/2017 5:35 AM EDT
[2017-10-19 05:58] LABS: Baso % (Auto) 0.1 % (0.0-2.0); Hematocrit 35.6 % (35.0-46.0); Hemoglobin 11.7 gm/dL (11.6-15.3); Lymph % (Auto) 8.3 % (9.0-44.0); Mean Corpuscular Hemoglobin 25.9 pg (27.0-34.0); Mean Corpuscular Volume 78.4 fL (80.0-100.0); Mean Platelet Volume 8.4 fL (7.0-11.0); Mono # (Auto) 0.7 th/mm3 (0.0-0.9); Neut # (Auto) 10.6 th/mm3 (1.8-7.7); Neut % (Auto) 85.6 % (16.0-70.0); Platelet Count 289 th/mm3 (150-450); Red Blood Count 4.54 mil/mm3 (4.00-5.30); Red Cell Distribution Width 14.4 % (11.6-17.2); White Blood Count 12.3 th/mm3 (4.0-11.0)
[2017-10-19 06:04] LABS: Alanine Aminotransferase 58 U/L (10-53); Albumin 2.9 g/dL (3.4-5.0); Anion Gap 8 meq/L (5-15); Aspartate Aminotransferase 58 U/L (15-37); Blood Urea Nitrogen 8 mg/dL (7-18); Chloride 105 meq/L (98-107); Glomerular Filtration Rate Greater Than 89 mL/min (>89); Glucose,Random 160 mg/dL (74-106); Magnesium 2.3 mg/dL (1.5-2.5); Potassium 3.8 meq/L (3.5-5.1); Sodium 140 meq/L (136-145)
[2017-10-19 06:15] LABS: Alkaline Phosphatase 80 U/L (45-117); Phosphorus 2.5 mg/dL (2.5-4.9); Thyroid Stimulating Hormone 0.253 uIU/mL (0.358-3.740); Total Protein 6.1 g/dL (6.4-8.2)
--- NOTE | 2017-10-19 08:39 | P.PNCC ---
Subjective Subjective Remarks/Hospital Course: This is a 62-year-old female. Date of admission 10/18/2017. Date of consultation 10/18/2017. Past medical history includes fibromyalgia, bipolar disorder, depression/anxiety, dyslipidemia, prior history of tobaccoism 20 pack years quit 2 years ago, allergic rhinitis, osteoporosis/osteoarthritis, chronic constipation, hypothyroidism, insomnia, diabetes mellitus, chronic benzodiazepine use, oropharyngeal dysphagia, gastroesophageal reflux disease and right popliteal lipoma. Patient was originally diagnosed with an ampullary tumor 2008. Was followed by Dr. Frazier. Patient had recurrent dilatations. Patient had a ampullectomy procedure 05/2016. Due to her underlying recurrent stricture and suspicion of ampullary cancer, patient underwent another Whipple procedure today 10/19/[address] Beaulieu Received 4800 cc crystalloid. EBL 100 cc. 500 cc urine output. Patient received 400 mg of ciprofloxacin in surgery. She currently has a new GJ tube. She has 2 JPs with serosanguineous drainage in the right upper quadrant/ midline. There is a abhilash drain in place. Dressing is clean dry and intact. She is currently arousable on 3 L nasal cannula in no acute distress. A hydromorphone SALES EFFECTIVENESS MANAGER is about to be initiated. Preoperative labs revealed a microcytosis only. She also slightly elevated blood sugar for diet-controlled diabetes. SUBJ 10/19: Patient is lying completely portably in bed no acute distress. Pain adequately controlled with SALES EFFECTIVENESS MANAGER. Postop note reviewed s/p pancreaticoduodenectomy (Whipple procedure) with Mindi-en-Y reconstruction. 2. Gastrostomy, Jejunostomy tube placement. Extensive lysis of adhesions, Open omentectomy. Objective Vital Signs / I&O: Vital Signs 10/18/17 15:06 10/18/17 15:08 10/18/17 15:30 Temperature 98.4 F Pulse Rate 96 H 92 H Respiratory Rate 20 20 Blood Pressure 133/62 149/76 H Pulse Oximetry 100 98 99 10/18/17 15:45 10/18/17 16:00 10/18/17 16:15 Temperature Pulse Rate 90 94 H 92 H Respiratory Rate 20 20 20 Blood Pressure 151/78 H 148/71 H 146/68 H Pulse Oximetry 99 99 99 10/18/17 16:30 10/18/17 16:45 10/18/17 17:00 Temperature Pulse Rate 90 92 H 90 Respiratory Rate 20 20 20 Blood Pressure 159/68 H 151/68 H 155/69 H Pulse Oximetry 99 99 99 10/18/17 17:15 10/18/17 17:30 10/18/17 17:45 Temperature Pulse Rate 92 H 89 92 H Respiratory Rate 20 20 20 Blood Pressure 153/70 H 157/70 H 158/70 H Pulse Oximetry 99 99 99 10/18/17 18:00 10/18/17 18:15 10/18/17 20:00 Temperature 98.4 F 97.6 F Pulse Rate 90 88 88 Respiratory Rate 20 20 21 Blood Pressure 162/77 H 141/71 H 162/74 H Pulse Oximetry 99 99 94 L 10/18/17 20:28 10/18/17 23:00 10/19/17 00:00 Temperature 97.2 F L Pulse Rate 82 Respiratory Rate 22 18 Blood Pressure 143/96 H Pulse Oximetry 97 98 10/19/17 02:00 10/19/17 04:00 10/19/17 06:00 Temperature 97.8 F Pulse Rate 94 H Respiratory Rate 21 Blood Pressure 154/79 H Pulse Oximetry 99 96 98 Intake & Output 10/18/17 10/19/17 10/19/17 18:59 06:59 18:59 Intake Total 4800 / 4800 1100 / 1100 Output Total 600 / 600 1005 / 1005 Balance 4200 / 4200 95 / 95 Weight 108.8 kg Intake: IV 1000 / 1000 1100 / 1100 NS Inj 1,000 ML @ 100 mls/hr IV 1000 / 1000 .CONT .Q10H [facility] Rx#:[id number] Ofirmev Inj 1,000 mg In 100 ml 100 / 100 @ 400 mls/hr IV.SIG Q6H [facility] Rx# :[id number] LR 1000 mL Inj 1,000 ML @ 30 1000 / 1000 mls/hr IV.SIG .Q24H [facility] Rx#: [id number] Anesthesia Amount 3800 / 3800 Output: Estimated Blood Loss 100 / 100 Urine Amount (Catheter) 500 / 500 750 / 750 Indwelling Urethral Catheter 500 / 500 750 / 750 Gastric Drainage 125 / 125 Gastrostomy Tube (PEG) 50 / 50 Left Upper Quadrant Jejunostomy 75 / 75 Tube Wound Drainage 130 / 130 # 1 Right Medial Abdomen 70 / 70 #2 EMMA Drain 60 / 60 Result Diagrams: 10/19/17 05:14 0719/18 05:14 Objective Remarks: Constitutional: no acute distress, obese. Lying in bed HEENT: Present: normocephalic, atraumatic. Present: EOMI, PERRL. Mucous membranes moist. Neck Exam: Supple, trachea midline. JVD, tenderness, swelling Respiratory: CTA bilaterally. Rhonchi, wheezes, crackles Cardiovascular: S1, S2. No murmur, gallop, rubs GI: soft, surgical scars, drain. No tenderness. Midline dressing C/D/I. EMMA, G tube and J tube to gravity per general surgery Extremities: edema+ Skin Exam: intact, dry, warm. Neurological Exam: CN II-XII intact, normal reflexes, altered mental status, moving all extremities. Assessment and Plan - Assessment and Plan Plan: Neuro/Psych: Depression/anxiety Bipolar disorder NOS Fibromyalgia Chronic benzodiazepine use Insomnia Patient's home medications include lorazepam 2 mg 4 times daily, hydroxyzine 25 mg 4 times daily. These have been held postoperatively Holding Diphendydramine 12.5 mg 3 times daily/home medication Receiving schedule Ofirmev 1 g IV every 6 hours per general surgery Holding zolpidem 10 mg at night as needed insomnia. Currently on hydromorphone SALES EFFECTIVENESS MANAGER per general surgery, Zofran for nausea vomiting Holding loratadine 10 mg daily, cetirizine 10 mg daily for allergic rhinitis. CV: History of dyslipidemia Holding omega-3 fish oil. Normal saline at 100 cc an hour. Currently not requiring vasopressors and/or antihypertensives Resp: Tobaccoism Nasal cannula to maintain saturations greater than or equal to 92% Incentive spirometry while awake As needed albuterol therapy every 2 hours Tobacco self evaluation/cessation booklet will be provided when patient is able to interact Follow-up on chest x-ray in a.m. GI: Postop day #1 Whipple/open due to recurrent ampullary tumor with GJ tube Prior ampullectomy 05/2016 History of pancreatitis Chronic constipation Gastroesophageal reflux disease History of dysphasia Currently on pantoprazole 40 mg IV daily./Home medication omeprazole 20 mg daily for gastroesophageal reflux disease Holding cholestyramine 4 g 3 times daily and docusate sodium 100 mg twice daily for constipation. Postoperative management per general surgery s/p pancreaticoduodenectomy (Whipple procedure) with Mindi-en-Y reconstruction. Gastrostomy, Jejunostomy tube placement. Extensive lysis of adhesions, Open omentectomy. : Powell catheter has been placed for accurate I's and O's in a postoperative patient Endo: Diabetes mellitus type 2/diet-controlled Hypothyroidism Sliding scale insulin with aspart insulin Accu-Cheks every 6 hours to maintain euglycemia/low regimen Patient is on levothyroxine 75 mcg through 10/21? Then on 150 mcg daily?. Medicine reconciliation. Currently holding. Might need IV while n.p.o. TSH suppressed will hold Synthroid for now Renal: Preoperative creatinine within normal limits Monitor urine output. Accurate I's and O's BMP, magnesium phosphorus in a.m. 10/19 Heme: Microcytosis History of ampullary tumor since 2008 Monitor CBC daily. Follow trend ID: Currently on ciprofloxacin 400 mg IV twice daily, fluconazole 40 mg daily and metronidazole 500 mg every 8 hours per general surgery. FEN: Replace electrolytes as clinically indicated per ICU electrolyte protocol MSK: Osteoporosis/osteoarthritis Elevated BMI History of right popliteal lipoma status post excision PT evaluate and treat Holding ergocalciferol 50,000 units q. Monday and cholecalciferol 5000 units daily. Resume when okay with surgery Access -Right IJ CVL placed in OR 10/18 -Right radial arterial line placed in OR 10/18 Prophylaxis -GI -pantoprazole -DVT -SCD/pharmacological prophylaxis when okay with Dr. Beaulieu Level 2
--- NOTE | 2017-10-19 09:49 | MP ---
cc: Bruno Beaulieu MD DATE OF OPERATION: 10/18/2017 PREOPERATIVE DIAGNOSES: 1. Recurrent ampullary adenoma. 2. Recurrent biliary obstruction secondary to ampullary adenoma. 3. Recurrent pancreatitis. POSTOPERATIVE DIAGNOSES: 1. Recurrent ampullary adenoma. 2. Recurrent biliary obstruction secondary to ampullary adenoma. 3. Recurrent pancreatitis. PROCEDURE PERFORMED: 1. Pancreaticoduodenectomy (Whipple procedure) with Mindi-en-Y reconstruction. 2. Gastrostomy tube placement. 3. Jejunostomy tube placement. 4. Extensive lysis of adhesions, greater than 45 minutes. 5. Open omentectomy. ATTENDING SURGEON: Bruno Beaulieu MD PAINTER AND DECORATOR: Yo Jim MD BLOOD LOSS: 200 mL COMPLICATIONS: None. FINDINGS: 1. Severe scarring and fibrotic reaction to the previous histories of pancreatitis and multiple ERCP procedures and previous ampullectomy at the head of the pancreas, duodenum, darlene hepatis and inferiorly down to the ligament of Treitz. 2. No evidence of invasive disease grossly or metastatic disease. 3. Ischemic-appearing devascularized omentum due to extensive dissection for Whipple procedure requiring omentectomy. INDICATION FOR PROCEDURE: The patient is a 62-year-old female with a several year history of a recurrent ampullary adenoma requiring ERCP, ampullectomy and stent placement to obtain biliary patency. The patient has undergone 39 separate endoscopies and multiple failed endoscopic resections of an ampullary polyp and requires stent in place permanently to maintain proper biliary drainage of the liver. The patient also is at risk for malignancy, although the patient has no biopsy-proven malignancy. The patient underwent embolectomy in 2017 with a recurrence within 1 year. After discussion with the patient about the options of continued nonoperative management endoscopically as well as the risk of malignancy as well as morbidity from recurrent pancreatitis and long-term complications versus Whipple procedure, the patient strongly preferred to undergo a Whipple procedure for curative intent of her recurrent ampullary adenoma. The risks, benefits and alternatives of the Whipple procedure, including details of the procedure and lifestyle changes afterwards were discussed with the patient and her extensively prior to procedure and they agreed to undergo the procedure. Dr. Jim was present and scrubbed for the critical portions of the procedure (all steps in the procedure other than opening and placing retractors and closing the patient). Dr. Jim's presence as a 1st assist is vital in the safe, efficient, and effective operation for this patient due to his extensive experience in pancreatic surgery. Dr. Jim actively assisted with exposure, retraction, dissection and intraoperative decision making regarding the technical aspects of the surgery. DESCRIPTION OF PROCEDURE: The patient underwent a regional TAP block and was brought to the operating room, placed in supine position, placed under general endotracheal anesthesia. The patient's abdomen was prepped and draped in a sterile fashion. Timeout was performed. The abdomen was entered through an upper midline incision from the xiphoid down to just below the umbilicus with the 15 blade scalpel. The Bovie electrocautery was used to dissect the subcutaneous tissue and open the midline fascia the full length of the incision. The Beto extra large wound retractor and the Bookwalter retractor was placed to gain better exposure. I explored the abdomen. There were extensive adhesions near the head of the pancreas and duodenum due to previous cholecystectomy, previous ampullectomy and multiple ERCP procedures and multiple bouts of pancreatitis. Otherwise, the abdomen had no significant abnormalities. We began our dissection. Dr Jim was present for this dissection and after this point on the operation. We opened up the lesser sac and gastrocolic ligament and extended this down to the head of the pancreas with the ENSEAL device. We were able to mobilize the scar tissue from the gallbladder fossa and kocherize the duodenum. The step of kocherizing the duodenum and freeing up the portal hepatis took approximately 1.5 hours longer than expected due to the extensive fibrosis and scar tissue from the multiple previous procedures and operations. This was tackled first as we wanted to define these structures. Once we had dissected these areas out, we could fully kocherize the duodenum. We felt that the pancreas was soft distally, though there sort of a mass-like change to the head of the pancreas, likely from chronic inflammation. It is felt that this was appropriate to continue with the Whipple operation. We divided the stomach at the incisura, took it down to the greater curvature using the green load on the Pittman GI stapler. We then mobilized this down to the first portion of duodenum. I did perform an omentectomy at this time as, with the extensive dissection, we did eventually basically remove all the blood supply from the greater portion of the omentum. Therefore, used the ENSEAL, device to take this off of the colon and off of the greater curve of the stomach. This was passed off as a separate specimen. We extended our dissection. We went approximately 10 cm past the ligament of Treitz and divided the jejunum with the blue load on the Pittman stapler. We used the ENSEAL device to take down the mesentery of the fourth portion of duodenum and past this through the ligament of Treitz to the right side. We continued our dissection. We identified the common hepatic artery and the hepatic artery. We identified the GDA and this was divided with a 2-0 silk suture stick tie and a Hemoclip proximally and a free tie clipped distally. We divided the bile duct using Bovie electrocautery over a right angle. Again, we continued our dissection. We were able to identify the portal vein above the pancreas and the SMV below and we gently use a Harleen hemostat to take down this vein easily. There were no attachments of the pancreas to the vein or any inflammation. We were able to divide the pancreas over a Harleen with a harmonic scalpel. At this point in time, we were able to roll the pancreas medially, take down the small branches from the SMV and down to the SMA, taking the entire uncinate process. 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 We used a 2 white loads of the Pittman GI stapler to divide the retroperitoneal attachments and create our SMA retroperitoneal margin of our specimen. Once this was completed, the specimen was passed off and oriented properly and sent for intraoperative consultation. Intraoperative consultation did show some noncancerous changes of the bile duct with no malignancy at any of the margins. We then irrigated out the cavity to until all succinate was clear. We turned our attention towards reconstruction. We brought our proximal jejunum through a retrocolic approach to the right of the middle colic vein over the juan carlos. We then performed a Blumgart type anastomosis, which was an end-to-side anastomosis using 2-0 silk sutures and 4-0 PDS sutures over a 1-inch, 5-Tongan pediatric stent in the bile duct through the enterotomy and the antimesenteric portion of the jejunum. We had excellent technical result with our anastomosis. I turned our attention towards the bile duct anastomosis. We used two 4-0 PDS sutures from 6 o'clock to 12 o'clock, ran this and tied them together externally creating our bile duct anastomosis. The bile duct was fibrotic and very large, approximately 1 cm and this was easily placed to the antimesenteric side of the jejunal limb. At this point in time, we were able to measure our lengths and so there was no tension. We closed the mesenteric defect of the retrocolic defect and sewed his to the bowel to prevent internal herniation. We then performed a Mindi-en-Y. We went approximately 40 cm distal to our pancreatic anastomosis and divided this jejunum with a blue load of the Pittman stapler. We divided some of the mesentery to mobilize this and perform a Mindi-en-Y. We brought antecolic retrogastric Mindi limb up to the stomach. We performed an anastomosis using the green load on the Pittman stapler. We closed that staple load defect with 3-0 silk sutures and then we also placed a crotch stitch of 3-0 silk suture. This was widely patent. We then performed our J-J anastomosis again another 40 cm distally of the pvyw-ju-srtw functional end-to-end anastomosis with a blue load on the Pittman stapler. The staple line defect was closed with a second blue load on the Pittman stapler. We oversewed the crotch edges with 3-0 silk sutures. We then placed the gastrostomy tube in the stomach. This was more medial to our G-J and was brought out with a pursestring suture in standard Kori to the abdominal wall. We then placed the jejunostomy tube. This was approximately 10 cm distal to our J-J anastomosis and brought through a separate incision laterally. This was tied with a pursestring as well as the Kori sutures to the abdominal wall as well. We placed two 19-Tongan round Karlo drains through separate stab incisions in the right quadrant. One was placed beneath our biliopancreatic limb and one was placed anterior to the biliopancreatic limb and with the tip over by the G-J anastomosis. All drains and a G-tube and J-tube were all placed with nylon sutures. The jejunostomy tube was fed proximal into the biliopancreatic limb to assist with decompression in the early postoperative period. We irrigated out the abdomen again until all succinate was clear. We turned our attention towards closure. We closed the fascia with a running #1 looped PDS suture. We closed the skin with 3-0 Vicryls and a ALEJANDRA dressing was applied. The patient was discontinued from anesthesia, taken to the PACU in stable condition. The patient tolerated the procedure well. No apparent complications. All counts were correct. I was present and scrubbed for the entire procedure. Dr. Jim was present for all major and critical portions of the procedure. MD TREVOR Owen/ANEUDY , 09:04 AM , 09:47 AM BONNY
[2017-10-19] MEDS: HYDROmorphone PCA Inj 6 MG/30 ML PCA.VIAL PCA PRN (09:58)
--- NOTE | 2017-10-19 10:21 | P.PNGS ---
<Rachel Flores - Last Filed: 10/19/17 10:19> Subjective Interval history: Doing well; complaining of back pain Physical Exam Vital signs: Vital Signs 10/18/17 15:06 10/18/17 15:08 10/18/17 15:30 Temperature 98.4 F Pulse Rate 96 H 92 H Respiratory Rate 20 20 Blood Pressure 133/62 149/76 H Pulse Oximetry 100 98 99 10/18/17 15:45 10/18/17 16:00 10/18/17 16:15 Temperature Pulse Rate 90 94 H 92 H Respiratory Rate 20 20 20 Blood Pressure 151/78 H 148/71 H 146/68 H Pulse Oximetry 99 99 99 10/18/17 16:30 10/18/17 16:45 10/18/17 17:00 Temperature Pulse Rate 90 92 H 90 Respiratory Rate 20 20 20 Blood Pressure 159/68 H 151/68 H 155/69 H Pulse Oximetry 99 99 99 10/18/17 17:15 10/18/17 17:30 10/18/17 17:45 Temperature Pulse Rate 92 H 89 92 H Respiratory Rate 20 20 20 Blood Pressure 153/70 H 157/70 H 158/70 H Pulse Oximetry 99 99 99 10/18/17 18:00 10/18/17 18:15 10/18/17 20:00 Temperature 98.4 F 97.6 F Pulse Rate 90 88 88 Respiratory Rate 20 20 21 Blood Pressure 162/77 H 141/71 H 162/74 H Pulse Oximetry 99 99 94 L 10/18/17 20:28 10/18/17 23:00 10/19/17 00:00 Temperature 97.2 F L Pulse Rate 82 Respiratory Rate 22 18 Blood Pressure 143/96 H Pulse Oximetry 97 98 10/19/17 02:00 10/19/17 04:00 10/19/17 06:00 Temperature 97.8 F Pulse Rate 94 H Respiratory Rate 21 Blood Pressure 154/79 H Pulse Oximetry 99 96 98 Intake & Output 10/18/17 10/19/17 10/19/17 18:59 06:59 18:59 Intake Total 4800 / 4800 1100 / 1100 Output Total 600 / 600 1005 / 1005 Balance 4200 / 4200 95 / 95 Weight 108.8 kg Intake: IV 1000 / 1000 1100 / 1100 NS Inj 1,000 ML @ 100 mls/hr IV 1000 / 1000 .CONT .Q10H STELLA Rx#:[id number] Ofirmev Inj 1,000 mg In 100 ml 100 / 100 @ 400 mls/hr IV.SIG Q6H STELLA Rx# :[id number] LR 1000 mL Inj 1,000 ML @ 30 1000 / 1000 mls/hr IV.SIG .Q24H STELLA Rx#: [id number] Anesthesia Amount 3800 / 3800 Output: Estimated Blood Loss 100 / 100 Urine Amount (Catheter) 500 / 500 750 / 750 Indwelling Urethral Catheter 500 / 500 750 / 750 Gastric Drainage 125 / 125 Gastrostomy Tube (PEG) 50 / 50 Left Upper Quadrant Jejunostomy 75 / 75 Tube Wound Drainage 130 / 130 # 1 Right Medial Abdomen 70 / 70 #2 EMMA Drain 60 / 60 Narrative: Alert and awake Cardio: RRR Resp: CTAB Abd: ALEJANDRA in place; EMMA; G tube and J tube to gravity - Urinary Catheter Management Indwelling Urethral Catheter Cath placed during this visit: yes Urethral indwelling: Yes Reason for continuing: Hourly intake/output Insertion date: 10/18/17 Insertion time: 09:00 Assessment and Plan - Plan 62 year old female POD1 Whipple -Await pathology -Continue G and J tube to gravity -Okay for ice chips sparingly -Hold Synthroid for now -Ativan Q6 -OOB; PT following -Discussed with Bruno Geller - Last Filed: 10/20/17 08:05> Physical Exam Vital signs: Vital Signs 10/19/17 12:00 10/19/17 14:00 10/19/17 16:00 Temperature 97.9 F 98.2 F Pulse Rate 85 99 H Respiratory Rate 11 L 15 Blood Pressure 148/65 H 151/68 H Pulse Oximetry 92 L 92 L 91 L 10/19/17 18:00 10/19/17 20:00 10/19/17 22:00 Temperature 99.6 F Pulse Rate 114 H Respiratory Rate 19 Blood Pressure 163/70 H Pulse Oximetry 97 98 98 10/20/17 00:00 10/20/17 02:00 10/20/17 04:00 Temperature 99.4 F 99.2 F Pulse Rate 105 H 105 H Respiratory Rate 19 15 Blood Pressure 136/67 164/72 H Pulse Oximetry 97 98 98 10/20/17 06:00 Temperature Pulse Rate 107 H Respiratory Rate Blood Pressure Pulse Oximetry 98 Intake & Output 10/19/17 10/20/17 10/20/17 18:59 06:59 18:59 Intake Total 1100 / 1100 4920 / 4920 Output Total 650 / 650 975 / 975 Balance 450 / 450 3945 / 3945 Weight 107.9 kg Intake: IV 1100 / 1100 1000 / 1000 NS Inj 1,000 ML @ 100 mls/hr IV 1000 / 1000 1000 / 1000 .CONT .Q10H STELLA Rx#:[id number] Ofirmev Inj 1,000 mg In 100 ml 100 / 100 @ 400 mls/hr IV.SIG Q6H STELLA Rx# :[id number] Oral 120 / 120 Anesthesia Amount 3800 / 3800 Output: Estimated Blood Loss 100 / 100 Urine Amount (Catheter) 500 / 500 700 / 700 Indwelling Urethral Catheter 500 / 500 700 / 700 Gastric Drainage 100 / 100 50 / 50 Gastrostomy Tube (PEG) 50 / 50 0 / 0 Left Upper Quadrant Jejunostomy 50 / 50 50 / 50 Tube Wound Drainage 50 / 50 125 / 125 # 1 EMMA Drain 25 / 25 # 1 Right Medial Abdomen 30 / 30 #2 EMMA Drain 20 / 20 100 / 100 Other: Bladder Irrigation Fluid - Amount Instilled Indwelling Urethral Catheter 10 - Urinary Catheter Management Indwelling Urethral Catheter Cath placed during this visit: no Assessment and Plan - Attending Attestation The exam, history, and the medical decision-making described in the above note were completed with the assistance of the mid-level provider. I reviewed and agree with the findings presented. I attest that I had a [id number]-cw-iaeb encounter with the patient on the same day, and personally performed and documented my assessment and findings in the medical record. s/p Whipple, stable pain controlled work with PT, OOB keep Jtube and gtube to gravity until bowel function appreciate senior product development engineer help
[2017-10-19] MEDS: Insulin NovoLOG Aspart Correctional Sugar Inj SQ SCH ×3 (15:53→23:48)
[2017-10-19] MEDS: Pantoprazole Inj 40 MG Vial IV.PUSH SCH (16:27)
[2017-10-19] MEDS ORDERED: Labetalol HCl Inj 100 MG/20 ML Vial IV.PUSH PRN (23:27)
[2017-10-20 04:14] LABS: Hematocrit 33.5 % (35.0-46.0); Hemoglobin 11.4 gm/dL (11.6-15.3); Mean Corpuscular HGB Conc 33.9 % (32.0-36.0); Mean Corpuscular Hemoglobin 26.5 pg (27.0-34.0); Mean Platelet Volume 7.8 fL (7.0-11.0); Platelet Count 293 th/mm3 (150-450); Red Blood Count 4.29 mil/mm3 (4.00-5.30); Red Cell Distribution Width 14.9 % (11.6-17.2); White Blood Count 17.6 th/mm3 (4.0-11.0)
[2017-10-20 04:36] LABS: Alanine Aminotransferase 38 U/L (10-53); Albumin 2.6 g/dL (3.4-5.0); Anion Gap 6 meq/L (5-15); Aspartate Aminotransferase 27 U/L (15-37); Blood Urea Nitrogen 6 mg/dL (7-18); Calcium 7.6 mg/dL (8.5-10.1); Carbon Dioxide 30.1 meq/L (21.0-32.0); Chloride 106 meq/L (98-107); Glomerular Filtration Rate Greater Than 89 mL/min (>89); Glucose,Random 162 mg/dL (74-106); Potassium 3.3 meq/L (3.5-5.1); Sodium 142 meq/L (136-145)
[2017-10-20 04:38] LABS: Alkaline Phosphatase 74 U/L (45-117)
[2017-10-20] MEDS: Insulin NovoLOG Aspart Correctional Sugar Inj SQ SCH ×4 (05:28→23:33)
--- NOTE | 2017-10-20 09:05 | P.PNCC ---
Subjective Subjective Remarks/Hospital Course: This is a 62-year-old female. Date of admission 10/18/2017. Date of consultation 10/18/2017. Past medical history includes fibromyalgia, bipolar disorder, depression/anxiety, dyslipidemia, prior history of tobaccoism 20 pack years quit 2 years ago, allergic rhinitis, osteoporosis/osteoarthritis, chronic constipation, hypothyroidism, insomnia, diabetes mellitus, chronic benzodiazepine use, oropharyngeal dysphagia, gastroesophageal reflux disease and right popliteal lipoma. Patient was originally diagnosed with an ampullary tumor 2008. Was followed by Dr. Frazier. Patient had recurrent dilatations. Patient had a ampullectomy procedure 05/2016. Due to her underlying recurrent stricture and suspicion of ampullary cancer, patient underwent another Whipple procedure today 10/19/[address] Beaulieu Received 4800 cc crystalloid. EBL 100 cc. 500 cc urine output. Patient received 400 mg of ciprofloxacin in surgery. She currently has a new GJ tube. She has 2 JPs with serosanguineous drainage in the right upper quadrant/ midline. There is a abhilash drain in place. Dressing is clean dry and intact. She is currently arousable on 3 L nasal cannula in no acute distress. A hydromorphone GRAPHIC DESIGN SPECIALIST is about to be initiated. Preoperative labs revealed a microcytosis only. She also slightly elevated blood sugar for diet-controlled diabetes. SUBJ 10/19: Patient is lying completely portably in bed no acute distress. Pain adequately controlled with GRAPHIC DESIGN SPECIALIST. Postop note reviewed s/p pancreaticoduodenectomy (Whipple procedure) with Mindi-en-Y reconstruction. 2. Gastrostomy, Jejunostomy tube placement. Extensive lysis of adhesions, Open omentectomy. 10/20: Lying in bed not in any acute distress. WBC count is elevated at 17.6 today probably postop stress related. Potassium 3.3 getting replaced. No fever or any other evidence of infection, no evidence of leak Objective Vital Signs / I&O: Vital Signs 10/19/17 12:00 10/19/17 14:00 10/19/17 16:00 Temperature 97.9 F 98.2 F Pulse Rate 85 99 H Respiratory Rate 11 L 15 Blood Pressure 148/65 H 151/68 H Pulse Oximetry 92 L 92 L 91 L 10/19/17 18:00 10/19/17 20:00 10/19/17 22:00 Temperature 99.6 F Pulse Rate 114 H Respiratory Rate 19 Blood Pressure 163/70 H Pulse Oximetry 97 98 98 10/20/17 00:00 10/20/17 02:00 10/20/17 04:00 Temperature 99.4 F 99.2 F Pulse Rate 105 H 105 H Respiratory Rate 19 15 Blood Pressure 136/67 164/72 H Pulse Oximetry 97 98 98 10/20/17 06:00 10/20/17 08:05 Temperature Pulse Rate 107 H Respiratory Rate Blood Pressure Pulse Oximetry 98 98 Intake & Output 10/19/17 10/20/17 10/20/17 18:59 06:59 18:59 Intake Total 1100 / 1100 4920 / 4920 Output Total 650 / 650 975 / 975 Balance 450 / 450 3945 / 3945 Weight 107.9 kg Intake: IV 1100 / 1100 1000 / 1000 NS Inj 1,000 ML @ 100 mls/hr IV 1000 / 1000 1000 / 1000 .CONT .Q10H STELLA Rx#:[id number] Ofirmev Inj 1,000 mg In 100 ml 100 / 100 @ 400 mls/hr IV.SIG Q6H STELLA Rx# :[id number] Oral 120 / 120 Anesthesia Amount 3800 / 3800 Output: Estimated Blood Loss 100 / 100 Urine Amount (Catheter) 500 / 500 700 / 700 Indwelling Urethral Catheter 500 / 500 700 / 700 Gastric Drainage 100 / 100 50 / 50 Gastrostomy Tube (PEG) 50 / 50 0 / 0 Left Upper Quadrant Jejunostomy 50 / 50 50 / 50 Tube Wound Drainage 50 / 50 125 / 125 # 1 EMMA Drain 25 / 25 # 1 Right Medial Abdomen 30 / 30 #2 EMMA Drain 20 / 20 100 / 100 Other: Bladder Irrigation Fluid - Amount Instilled Indwelling Urethral Catheter 10 Result Diagrams: 10/20/17 04:00 10/20/17 04:00 Objective Remarks: Constitutional: no acute distress, obese. Lying in bed HEENT: normocephalic, atraumatic. EOMI, JIM. Mucous membranes moist. Neck Exam: Supple, trachea midline. JVD, tenderness, swelling Respiratory: CTA bilaterally. Rhonchi, wheezes, crackles Cardiovascular: S1, S2. No murmur, gallop, rubs GI: soft, surgical scars. Mild tenderness. Midline dressing C/D/I. EMMA with sero-sanguinous output, G tube and J tube to gravity Extremities: edema+ Skin Exam: intact, dry, warm. Neurological Exam: CN II-XII intact, normal reflexes, altered mental status, moving all extremities. Assessment and Plan - Assessment and Plan Plan: Neuro/Psych: Depression/anxiety Bipolar disorder NOS Fibromyalgia Chronic benzodiazepine use Postop pain control Currently on hydromorphone GRAPHIC DESIGN SPECIALIST per general surgery, Zofran for nausea vomiting Patient's home medications include lorazepam 2 mg 4 times daily, hydroxyzine 25 mg 4 times daily. These have been held postoperatively Holding Diphendydramine 12.5 mg 3 times daily/home medication Receiving scheduled Ofirmev 1 g IV every 6 hours per general surgery Holding zolpidem 10 mg at night as needed insomnia. Holding loratadine 10 mg daily, cetirizine 10 mg daily for allergic rhinitis. CV: History of dyslipidemia Holding omega-3 fish oil. Normal saline at 100 cc an hour. Currently not requiring vasopressors and/or antihypertensives Resp: Tobaccoism Nasal cannula to maintain saturations greater than or equal to 92% Incentive spirometry while awake As needed albuterol therapy every 2 hours Follow-up on chest x-ray as needed GI: Postop day #2 Whipple/open due to recurrent ampullary tumor with GJ tube Prior ampullectomy 05/2016 History of pancreatitis Chronic constipation Gastroesophageal reflux disease History of dysphasia Underwent Whipple's for recurrent ampullary adenoma with recurrent biliary obstruction, recurrent pancreatitis. Currently on pantoprazole 40 mg IV daily./Home medication omeprazole 20 mg daily for gastroesophageal reflux disease Holding cholestyramine 4 g 3 times daily and docusate sodium 100 mg twice daily for constipation. Postoperative management per general surgery s/p pancreaticoduodenectomy (Whipple procedure) with Mindi-en-Y reconstruction. Gastrostomy, Jejunostomy tube placement. Extensive lysis of adhesions, Open omentectomy. Endo: Diabetes mellitus type 2/diet-controlled Hypothyroidism Sliding scale insulin with aspart insulin Accu-Cheks every 6 hours to maintain euglycemia/low regimen Patient is on levothyroxine 75 mcg through 10/21? Then on 150 mcg daily?. Medicine reconciliation. Currently holding. Might need IV while n.p.o. TSH suppressed will hold Synthroid for now Renal: Powell catheter has been placed for accurate I's and O's in a postoperative patient Preoperative creatinine within normal limits Monitor urine output. Accurate I's and O's BMP, magnesium phosphorus in a.m. 10/19 Heme: Microcytosis History of ampullary tumor since 2008 Monitor CBC daily. Follow trend Leukocytosis probably reactive and stress related ID: Currently on ciprofloxacin 400 mg IV twice daily, fluconazole 40 mg daily and metronidazole 500 mg every 8 hours per general surgery. FEN: Replace electrolytes as clinically indicated per ICU electrolyte protocol MSK: Osteoporosis/osteoarthritis Elevated BMI History of right popliteal lipoma status post excision PT evaluate and treat Holding ergocalciferol 50,000 units q. Alistair Monday and cholecalciferol 5000 units daily. Access -Right IJ CVL placed in OR 10/18 -Right radial arterial line placed in OR 10/18-DC Prophylaxis -GI -pantoprazole -DVT -SCD/pharmacological prophylaxis when okay with Dr. Beaulieu Level 2
[2017-10-20] MEDS: Sod Chloride 0.9% Inj 1,000 ML IV.CONT SCH ×2 (09:15→23:34)
--- NOTE | 2017-10-20 10:47 | P.PNGS ---
Subjective Interval history: Resting in bed; asking for ice chip refill; got up several times yesterday Physical Exam Vital signs: Vital Signs 10/19/17 12:00 10/19/17 14:00 10/19/17 16:00 Temperature 97.9 F 98.2 F Pulse Rate 85 99 H Respiratory Rate 11 L 15 Blood Pressure 148/65 H 151/68 H Pulse Oximetry 92 L 92 L 91 L 10/19/17 18:00 10/19/17 20:00 10/19/17 22:00 Temperature 99.6 F Pulse Rate 114 H Respiratory Rate 19 Blood Pressure 163/70 H Pulse Oximetry 97 98 98 10/20/17 00:00 10/20/17 02:00 10/20/17 04:00 Temperature 99.4 F 99.2 F Pulse Rate 105 H 105 H Respiratory Rate 19 15 Blood Pressure 136/67 164/72 H Pulse Oximetry 97 98 98 10/20/17 06:00 10/20/17 08:00 10/20/17 08:05 Temperature 99.0 F Pulse Rate 107 H 110 H Respiratory Rate 18 Blood Pressure 164/72 H Pulse Oximetry 98 98 98 Intake & Output 10/19/17 10/20/17 10/20/17 18:59 06:59 18:59 Intake Total 1100 / 1100 4920 / 4920 1000 / 1000 Output Total 650 / 650 975 / 975 Balance 450 / 450 3945 / 3945 1000 / 1000 Weight 107.9 kg Intake: IV 1100 / 1100 1000 / 1000 1000 / 1000 NS Inj 1,000 ML @ 100 mls/hr IV 1000 / 1000 1000 / 1000 1000 / 1000 .CONT .Q10H STELLA Rx#:[id number] Ofirmev Inj 1,000 mg In 100 ml 100 / 100 @ 400 mls/hr IV.SIG Q6H STELLA Rx# :[id number] Oral 120 / 120 Anesthesia Amount 3800 / 3800 Output: Estimated Blood Loss 100 / 100 Urine Amount (Catheter) 500 / 500 700 / 700 Indwelling Urethral Catheter 500 / 500 700 / 700 Gastric Drainage 100 / 100 50 / 50 Gastrostomy Tube (PEG) 50 / 50 0 / 0 Left Upper Quadrant Jejunostomy 50 / 50 50 / 50 Tube Wound Drainage 50 / 50 125 / 125 # 1 EMMA Drain 25 / 25 # 1 Right Medial Abdomen 30 / 30 #2 EMMA Drain 20 / 20 100 / 100 Other: Bladder Irrigation Fluid - Amount Instilled Indwelling Urethral Catheter 10 Narrative: Alert and awake Cardio: RRR Resp: CTAB Abd: New ALEJANDRA placed today with good seal; G and J tube both to gravity; EMMA x2 with SS drainage; mild tenderness with palpation Mild BLE edema - Urinary Catheter Management Indwelling Urethral Catheter Cath placed during this visit: yes Urethral indwelling: Yes Reason for continuing: Hourly intake/output Insertion date: 10/18/17 Insertion time: 09:00 Assessment and Plan - Plan 62 year old female POD2 Whipple -Await pathology -Continue G and J tube to gravity -Okay for ice chips sparingly -Hold Synthroid for now; will recheck TSH tomorrow -Ativan Q6 -Heparin for DVT proph -OOB; PT following -Discussed with Dr. Caraballo
[2017-10-20] MEDS: Heparin - SQ 10,000 UNITS/ML Vial SQ SCH ×2 (13:38→22:20)
[2017-10-20] MEDS: HYDROmorphone PCA Inj 6 MG/30 ML PCA.VIAL PCA PRN (13:39)
[2017-10-20] MEDS: Pantoprazole Inj 40 MG Vial IV.PUSH SCH (19:28)
[2017-10-20] MEDS: Potassium Chlor 40 mEq Premix 40 MEQ/100 ML PIGGYBACK IV.SIG PRN (23:04)
[2017-10-21] MEDS: Potassium Chlor 40 mEq Premix 40 MEQ/100 ML PIGGYBACK IV.SIG PRN (04:36)
[2017-10-21] MEDS: Insulin NovoLOG Aspart Correctional Sugar Inj SQ SCH ×3 (05:25→19:30)
[2017-10-21] MEDS: Heparin - SQ 10,000 UNITS/ML Vial SQ SCH ×3 (05:27→22:00)
[2017-10-21 06:28] LABS: Hematocrit 31.3 % (35.0-46.0); Hemoglobin 10.1 gm/dL (11.6-15.3); Mean Corpuscular HGB Conc 32.3 % (32.0-36.0); Mean Corpuscular Hemoglobin 25.4 pg (27.0-34.0); Mean Corpuscular Volume 78.8 fL (80.0-100.0); Mean Platelet Volume 7.9 fL (7.0-11.0); Platelet Count 256 th/mm3 (150-450); Red Blood Count 3.97 mil/mm3 (4.00-5.30); White Blood Count 14.2 th/mm3 (4.0-11.0)
[2017-10-21 07:05] LABS: Alanine Aminotransferase 25 U/L (10-53); Albumin 2.1 g/dL (3.4-5.0); Anion Gap 9 meq/L (5-15); Aspartate Aminotransferase 15 U/L (15-37); Blood Urea Nitrogen 6 mg/dL (7-18); Calcium 7.9 mg/dL (8.5-10.1); Carbon Dioxide 26.6 meq/L (21.0-32.0); Chloride 106 meq/L (98-107); Glomerular Filtration Rate Greater Than 89 mL/min (>89); Glucose,Random 115 mg/dL (74-106); Magnesium 2.3 mg/dL (1.5-2.5); Potassium 3.7 meq/L (3.5-5.1); Sodium 142 meq/L (136-145)
[2017-10-21 07:15] LABS: Alkaline Phosphatase 82 U/L (45-117); Thyroid Stimulating Hormone 0.502 uIU/mL (0.358-3.740); Total Protein 5.8 g/dL (6.4-8.2)
--- NOTE | 2017-10-21 11:39 | P.PN ---
Subjective Interval history: Patient confused this morning, getting better May be due to ativan IV dose Physical Exam Vital signs: Vital Signs 10/20/17 12:00 10/20/17 14:00 10/20/17 16:00 Temperature 100.0 F H Pulse Rate 121 H 106 H 110 H Respiratory Rate 16 Blood Pressure 153/70 H Pulse Oximetry 97 10/20/17 18:00 10/20/17 19:56 10/20/17 20:00 Temperature 99.4 F Pulse Rate 111 H 105 H Respiratory Rate 18 Blood Pressure 162/70 H Pulse Oximetry 100 98 10/20/17 22:00 10/20/17 23:00 10/21/17 00:00 Temperature 98.1 F Pulse Rate 109 H 104 H Respiratory Rate 14 Blood Pressure 162/68 H Pulse Oximetry 98 100 10/21/17 02:00 10/21/17 03:00 10/21/17 04:00 Temperature 99.0 F Pulse Rate 101 H 100 H Respiratory Rate 15 Blood Pressure 160/69 H Pulse Oximetry 99 98 10/21/17 06:00 10/21/17 09:21 Temperature Pulse Rate 100 H Respiratory Rate Blood Pressure Pulse Oximetry 97 Intake & Output 10/20/17 10/21/17 10/21/17 18:59 06:59 18:59 Intake Total 1240 / 1240 1740 / 1740 Output Total 1180 / 1180 1855 / 1855 Balance 60 / 60 -115 / -115 Weight 107.5 kg Intake: IV 1000 / 1000 1100 / 1100 NS Inj 1,000 ML @ 100 mls/hr IV 1000 / 1000 1000 / 1000 .CONT .Q10H STELLA Rx#:[id number] KCl 40 mEq Premix Inj 40 meq In 100 / 100 100 ml @ 25 mls/hr IV.SIG Q2H PRN Rx#:[id number] Oral 240 / 240 600 / 600 Tube Irrigant 40 / 40 Output: Estimated Blood Loss 100 / 100 Urine Amount (Catheter) 750 / 750 950 / 950 Indwelling Urethral Catheter 750 / 750 950 / 950 Gastric Drainage 225 / 225 775 / 775 Gastrostomy Tube (PEG) 175 / 175 750 / 750 Left Upper Quadrant Jejunostomy 50 / 50 25 / 25 Tube Wound Drainage 105 / 105 130 / 130 # 1 EMMA Drain 5 / 5 10 / 10 #2 EMMA Drain 100 / 100 120 / 120 Other: Bladder Irrigation Fluid - Amount Instilled Indwelling Urethral Catheter 20 - Routine Respiratory Exam Present: distant breath sounds - Routine Cardiovascular Exam Present: RRR - Routine Abdominal Exam Present: soft, wound (Dressing intact with no drainage (ALEJANDRA)) - Urinary Catheter Management Indwelling Urethral Catheter Cath placed during this visit: yes Urethral indwelling: Yes Reason for continuing: Hourly intake/output Insertion date: 10/18/17 Insertion time: 09:00 Results - Labs CBC & Chem 7: 10/21/17 05:40 10/21/17 05:40 Laboratory Results - last 24 hr 10/18/17 10/20/17 10/20/17 06:15 12:52 18:19 WBC RBC Hgb Hct MCV MCH MCHC RDW Plt Count MPV Sodium Potassium Chloride Carbon Dioxide Anion Gap BUN Creatinine Estimated GFR POC Glucose 137 H 149 H Random Glucose Calcium Magnesium Total Bilirubin AST ALT Alkaline Phosphatase Total Protein Albumin TSH MTS Gel Crossmatch See Detail 10/20/17 10/20/17 10/21/17 20:50 23:19 05:20 WBC RBC Hgb Hct MCV MCH MCHC RDW Plt Count MPV Sodium Potassium 3.2 L Chloride Carbon Dioxide Anion Gap BUN Creatinine Estimated GFR POC Glucose 116 H 110 Random Glucose Calcium Magnesium Total Bilirubin AST ALT Alkaline Phosphatase Total Protein Albumin TSH MTS Gel Crossmatch 10/21/17 10/21/17 05:40 05:40 WBC 14.2 H RBC 3.97 L Hgb 10.1 L Hct 31.3 L MCV 78.8 L MCH 25.4 L MCHC 32.3 RDW 15.0 Plt Count 256 MPV 7.9 Sodium 142 Potassium 3.7 Chloride 106 Carbon Dioxide 26.6 Anion Gap 9 BUN 6 L Creatinine 0.44 L Estimated GFR Greater than 89 POC Glucose Random Glucose 115 H Calcium 7.9 L Magnesium 2.3 Total Bilirubin 0.6 AST 15 ALT 25 Alkaline Phosphatase 82 Total Protein 5.8 L Albumin 2.1 L TSH 0.502 MTS Gel Crossmatch Assessment and Plan - Assessment (1) Ampulla of Vater mass Code(s): 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 Caraballo
--- NOTE | 2017-10-21 13:24 | P.PNCC ---
Subjective Subjective Remarks/Hospital Course: This is a 62-year-old female. Date of admission 10/18/2017. Date of consultation 10/18/2017. Past medical history includes fibromyalgia, bipolar disorder, depression/anxiety, dyslipidemia, prior history of tobaccoism 20 pack years quit 2 years ago, allergic rhinitis, osteoporosis/osteoarthritis, chronic constipation, hypothyroidism, insomnia, diabetes mellitus, chronic benzodiazepine use, oropharyngeal dysphagia, gastroesophageal reflux disease and right popliteal lipoma. Patient was originally diagnosed with an ampullary tumor 2008. Was followed by Dr. Frazier. Patient had recurrent dilatations. Patient had a ampullectomy procedure 05/2016. Due to her underlying recurrent stricture and suspicion of ampullary cancer, patient underwent another Whipple procedure today 10/19/[address] Beaulieu Received 4800 cc crystalloid. EBL 100 cc. 500 cc urine output. Patient received 400 mg of ciprofloxacin in surgery. She currently has a new GJ tube. She has 2 JPs with serosanguineous drainage in the right upper quadrant/ midline. There is a abhilash drain in place. Dressing is clean dry and intact. She is currently arousable on 3 L nasal cannula in no acute distress. A hydromorphone PLASTIC SHAPER is about to be initiated. Preoperative labs revealed a microcytosis only. She also slightly elevated blood sugar for diet-controlled diabetes. SUBJ 10/19: Patient is lying completely portably in bed no acute distress. Pain adequately controlled with PLASTIC SHAPER. Postop note reviewed s/p pancreaticoduodenectomy (Whipple procedure) with Mindi-en-Y reconstruction. 2. Gastrostomy, Jejunostomy tube placement. Extensive lysis of adhesions, Open omentectomy. 10/20: Lying in bed not in any acute distress. WBC count is elevated at 17.6 today probably postop stress related. Potassium 3.3 getting replaced. No fever or any other evidence of infection, no evidence of leak 10/21: Clinically stable, WBC improving from 17.6 to 14.2. Serosanguineous drainage from right EMMA drain. Intermittently confused in a.m. most likely related to Dilaudid and Ativan. Dr. Jim has reduced Ativan dosage Objective Vital Signs / I&O: Vital Signs 10/20/17 14:00 10/20/17 16:00 10/20/17 18:00 Temperature 100.0 F H Pulse Rate 106 H 110 H 111 H Respiratory Rate 16 Blood Pressure 153/70 H Pulse Oximetry 97 10/20/17 19:56 10/20/17 20:00 10/20/17 22:00 Temperature 99.4 F Pulse Rate 105 H 109 H Respiratory Rate 18 Blood Pressure 162/70 H Pulse Oximetry 100 98 10/20/17 23:00 10/21/17 00:00 10/21/17 02:00 Temperature 98.1 F Pulse Rate 104 H 101 H Respiratory Rate 14 Blood Pressure 162/68 H Pulse Oximetry 98 100 10/21/17 03:00 10/21/17 04:00 10/21/17 06:00 Temperature 99.0 F Pulse Rate 100 H 100 H Respiratory Rate 15 Blood Pressure 160/69 H Pulse Oximetry 99 98 10/21/17 08:00 10/21/17 09:21 Temperature Pulse Rate Respiratory Rate 16 Blood Pressure Pulse Oximetry 97 Intake & Output 10/20/17 10/21/17 10/21/17 18:59 06:59 18:59 Intake Total 1240 / 1240 1740 / 1740 Output Total 1180 / 1180 1855 / 1855 Balance 60 / 60 -115 / -115 Weight 107.5 kg Intake: IV 1000 / 1000 1100 / 1100 NS Inj 1,000 ML @ 100 mls/hr IV 1000 / 1000 1000 / 1000 .CONT .Q10H STELLA Rx#:[id number] KCl 40 mEq Premix Inj 40 meq In 100 / 100 100 ml @ 25 mls/hr IV.SIG Q2H PRN Rx#:[id number] Oral 240 / 240 600 / 600 Tube Irrigant 40 / 40 Output: Estimated Blood Loss 100 / 100 Urine Amount (Catheter) 750 / 750 950 / 950 Indwelling Urethral Catheter 750 / 750 950 / 950 Gastric Drainage 225 / 225 775 / 775 Gastrostomy Tube (PEG) 175 / 175 750 / 750 Left Upper Quadrant Jejunostomy 50 / 50 25 / 25 Tube Wound Drainage 105 / 105 130 / 130 # 1 EMMA Drain 5 / 5 10 / 10 #2 EMMA Drain 100 / 100 120 / 120 Other: Bladder Irrigation Fluid - Amount Instilled Indwelling Urethral Catheter 20 Result Diagrams: 10/21/17 05:40 10/21/17 05:40 Objective Remarks: Constitutional: no acute distress, obese. Lying in bed HEENT: normocephalic, atraumatic. EOMI, JIM. Mucous membranes moist. Neck Exam: Supple, trachea midline. JVD, tenderness, swelling Respiratory: CTA bilaterally. Rhonchi, wheezes, crackles Cardiovascular: S1, S2. No murmur, gallop, rubs GI: soft, surgical scars. Mild tenderness. Midline dressing C/D/I. EMMA with sero-sanguinous output, G tube and J tube to gravity Extremities: edema+ Skin Exam: intact, dry, warm. Neurological Exam: CN II-XII intact, normal reflexes, altered mental status, moving all extremities. Oriented to person and place Assessment and Plan - Assessment and Plan Plan: Neuro/Psych: Depression/anxiety Bipolar disorder NOS Fibromyalgia Chronic benzodiazepine use Postop pain control Currently on hydromorphone PLASTIC SHAPER per general surgery, Zofran for nausea vomiting. Ativan IV PRN for anxiety Patient's home medications include lorazepam 2 mg 4 times daily, hydroxyzine 25 mg 4 times daily. These have been held postoperatively Holding Diphendydramine 12.5 mg 3 times daily/home medication Receiving scheduled Ofirmev 1 g IV every 6 hours per general surgery Holding zolpidem 10 mg at night as needed insomnia. Holding loratadine 10 mg daily, cetirizine 10 mg daily for allergic rhinitis. CV: History of dyslipidemia Holding omega-3 fish oil. Not requiring vasopressors and/or antihypertensives Continue IVF Resp: Tobaccoism Nasal cannula to maintain saturations greater than or equal to 92% Incentive spirometry while awake As needed albuterol therapy every 2 hours GI: Postop day #3 Whipple due to recurrent ampullary tumor with GJ tube Prior ampullectomy 05/2016 History of pancreatitis Chronic constipation Gastroesophageal reflux disease History of dysphasia Currently on pantoprazole 40 mg IV daily./Home medication omeprazole 20 mg daily for gastroesophageal reflux disease Holding cholestyramine 4 g 3 times daily and docusate sodium 100 mg twice daily for constipation. Postoperative management per general surgery s/p pancreaticoduodenectomy (Whipple procedure) with Mindi-en-Y reconstruction. Gastrostomy, Jejunostomy tube placement. Extensive lysis of adhesions, Open omentectomy. Endo: Diabetes mellitus type 2/diet-controlled Hypothyroidism Sliding scale insulin with aspart insulin Accu-Cheks every 6 hours to maintain euglycemia/low regimen Patient is on levothyroxine 75 mcg through 10/21? Then on 150 mcg daily?. Medicine reconciliation. Currently holding. Might need IV while n.p.o. TSH suppressed will hold Synthroid for now Renal: Powell catheter has been placed for accurate I's and O's in a postoperative patient Preoperative creatinine within normal limits Monitor urine output. Accurate I's and O's BMP, magnesium phosphorus in a.m. 10/19 Heme: Microcytosis History of ampullary tumor since 2008 Monitor CBC daily. Follow trend Leukocytosis probably reactive and stress related ID: Currently on ciprofloxacin 400 mg IV twice daily, fluconazole 40 mg daily and metronidazole 500 mg every 8 hours per general surgery. FEN: Replace electrolytes as clinically indicated per ICU electrolyte protocol MSK: Osteoporosis/osteoarthritis Elevated BMI History of right popliteal lipoma status post excision PT evaluate and treat Holding ergocalciferol 50,000 units q. Alistair Monday and cholecalciferol 5000 units daily. Access -Right IJ CVL placed in OR 10/18 -Right radial arterial line placed in OR 10/18-DCd Prophylaxis -GI -pantoprazole -DVT -SCD/pharmacological prophylaxis when okay with Dr. Beaulieu Level 2 Code Status: Full
[2017-10-21] MEDS: Sod Chloride 0.9% Inj 1,000 ML IV.CONT SCH ×2 (14:20)
[2017-10-21] MEDS: Pantoprazole Inj 40 MG Vial IV.PUSH SCH ×2 (16:21→19:31)
[2017-10-22] MEDS: Heparin - SQ 10,000 UNITS/ML Vial SQ SCH ×3 (05:16→21:13)
[2017-10-22 05:49] LABS: Hematocrit 28.5 % (35.0-46.0); Hemoglobin 9.4 gm/dL (11.6-15.3); Mean Corpuscular HGB Conc 32.8 % (32.0-36.0); Mean Corpuscular Hemoglobin 25.7 pg (27.0-34.0); Mean Corpuscular Volume 78.2 fL (80.0-100.0); Platelet Count 260 th/mm3 (150-450); Red Blood Count 3.64 mil/mm3 (4.00-5.30); Red Cell Distribution Width 14.8 % (11.6-17.2); White Blood Count 11.9 th/mm3 (4.0-11.0)
[2017-10-22] MEDS ORDERED: SYNTHROID 150 MCG PO SCH (06:00)
[2017-10-22 06:05] LABS: Anion Gap 7 meq/L (5-15); Aspartate Aminotransferase 17 U/L (15-37); Blood Urea Nitrogen 5 mg/dL (7-18); Calcium 7.6 mg/dL (8.5-10.1); Carbon Dioxide 29.2 meq/L (21.0-32.0); Chloride 103 meq/L (98-107); Glomerular Filtration Rate Greater Than 89 mL/min (>89); Glucose,Random 130 mg/dL (74-106); Potassium 3.1 meq/L (3.5-5.1); Sodium 139 meq/L (136-145)
[2017-10-22 06:08] LABS: Alanine Aminotransferase 22 U/L (10-53); Alkaline Phosphatase 84 U/L (45-117); Total Protein 5.7 g/dL (6.4-8.2)
[2017-10-22] MEDS: HYDROmorphone PCA Inj 6 MG/30 ML PCA.VIAL PCA PRN (06:16)
--- NOTE | 2017-10-22 07:52 | P.DIET ---
Nutritional Evaluation Type of nutrition evaluation: initial (NPO Screen) Objective - Diagnosis Whipple Procedure - Objective Dietitian Reviewed in Medical Record: Current diet, Curent medications, Intake & Output, Labs, Medical history Diet Order: NPO Objective Comments: POD#4 Whipple Procedure Assessment Assessment: NPO x 4-Days. Please Consult RD if Needed. Recommendations: Please Consult RD if Needed
[2017-10-22] MEDS: Potassium Chlor 40 mEq Premix 40 MEQ/100 ML PIGGYBACK IV.SIG PRN ×2 (08:30→13:30)
[2017-10-22] MEDS: Sod Chloride 0.9% Inj 1,000 ML IV.CONT SCH (08:44)
[2017-10-22] MEDS: Insulin NovoLOG Aspart Correctional Sugar Inj SQ SCH ×2 (10:41→12:26)
--- NOTE | 2017-10-22 11:54 | P.PNCC ---
Subjective Subjective Remarks/Hospital Course: This is a 62-year-old female. Date of admission 10/18/2017. Date of consultation 10/18/2017. Past medical history includes fibromyalgia, bipolar disorder, depression/anxiety, dyslipidemia, prior history of tobaccoism 20 pack years quit 2 years ago, allergic rhinitis, osteoporosis/osteoarthritis, chronic constipation, hypothyroidism, insomnia, diabetes mellitus, chronic benzodiazepine use, oropharyngeal dysphagia, gastroesophageal reflux disease and right popliteal lipoma. Patient was originally diagnosed with an ampullary tumor 2008. Was followed by Dr. Frazier. Patient had recurrent dilatations. Patient had a ampullectomy procedure 05/2016. Due to her underlying recurrent stricture and suspicion of ampullary cancer, patient underwent another Whipple procedure today 10/19/[address] Beaulieu Received 4800 cc crystalloid. EBL 100 cc. 500 cc urine output. Patient received 400 mg of ciprofloxacin in surgery. She currently has a new GJ tube. She has 2 JPs with serosanguineous drainage in the right upper quadrant/ midline. There is a abhilash drain in place. Dressing is clean dry and intact. She is currently arousable on 3 L nasal cannula in no acute distress. A hydromorphone INSTALLATION HELPER is about to be initiated. Preoperative labs revealed a microcytosis only. She also slightly elevated blood sugar for diet-controlled diabetes. SUBJ 10/19: Patient is lying completely portably in bed no acute distress. Pain adequately controlled with INSTALLATION HELPER. Postop note reviewed s/p pancreaticoduodenectomy (Whipple procedure) with Imndi-en-Y reconstruction. 2. Gastrostomy, Jejunostomy tube placement. Extensive lysis of adhesions, Open omentectomy. 10/20: Lying in bed not in any acute distress. WBC count is elevated at 17.6 today probably postop stress related. Potassium 3.3 getting replaced. No fever or any other evidence of infection, no evidence of leak 10/21: Clinically stable, WBC improving from 17.6 to 14.2. Serosanguineous drainage from right EMMA drain. Intermittently confused in a.m. most likely related to Dilaudid and Ativan. Dr. Jim has reduced Ativan dosage 10/22: One of the EMMA drains (#1) showing greenish brown output today, was serosanguineous yesterday. I discussed with Dr. Rodarte about possibility of leak, he will discuss Dr. Beaulieu. Continue strict n.p.o. continue broad- spectrum antibiotics. WBC improving, no fever 14.2 to 11.9 today. CMP normal except K 3.1, getting replaced Objective Vital Signs / I&O: Vital Signs 10/21/17 12:00 10/21/17 13:00 10/21/17 14:00 Temperature 100.7 F H Pulse Rate 106 H 104 H Respiratory Rate 17 Blood Pressure 161/73 H Pulse Oximetry 96 97 10/21/17 16:00 10/21/17 17:00 10/21/17 18:00 Temperature 100.1 F H Pulse Rate 120 H 112 H Respiratory Rate 30 H Blood Pressure 168/68 H Pulse Oximetry 90 L 87 L 10/21/17 20:00 10/21/17 20:48 10/21/17 20:51 Temperature 101.3 F H Pulse Rate 109 H Respiratory Rate 24 20 Blood Pressure 171/77 H Pulse Oximetry 90 L 92 L 10/21/17 22:00 10/22/17 00:00 10/22/17 02:00 Temperature 98.3 F Pulse Rate 90 87 92 H Respiratory Rate 15 Blood Pressure 169/76 H Pulse Oximetry 93 L 10/22/17 04:00 10/22/17 06:00 10/22/17 07:37 Temperature 99.5 F Pulse Rate 86 92 H Respiratory Rate 17 Blood Pressure 164/76 H Pulse Oximetry 94 L 92 L Intake & Output 10/21/17 10/22/17 10/22/17 18:59 06:59 18:59 Intake Total 1360 / 1360 1600 / 1600 Output Total 2200 / 2200 2160 / 2160 Balance -840 / -840 -560 / -560 Weight 104.7 kg Intake: IV 1100 / 1100 1100 / 1100 NS Inj 1,000 ML @ 100 mls/hr IV 1000 / 1000 1000 / 1000 .CONT .Q10H STELLA Rx#:[id number] Ofirmev Inj 1,000 mg In 100 ml 100 / 100 @ 400 mls/hr IV.SIG Q6H PRN Rx# :[id number] KCl 40 mEq Premix Inj 40 meq In 100 / 100 100 ml @ 25 mls/hr IV.SIG Q2H PRN Rx#:[id number] Oral 240 / 240 480 / 480 Tube Irrigant 20 / 20 20 / 20 Output: Urine Amount (Catheter) 1400 / 1400 1000 / 1000 Indwelling Urethral Catheter 1400 / 1400 1000 / 1000 Gastric Drainage 475 / 475 Gastrostomy Tube (PEG) 350 / 350 Left Upper Quadrant Jejunostomy 125 / 125 Tube Wound Drainage 800 / 800 685 / 685 # 1 EMMA Drain 0 / 0 10 / 10 # 2 Right Medial Abdomen EMMA 200 / 200 Drain #2 EMMA Drain 200 / 200 #3 J Tube Drain (Red) 250 / 250 350 / 350 #4 G Tube Drain (Clear) 350 / 350 125 / 125 Result Diagrams: 10/22/17 05:30 10/22/17 05:30 Objective Remarks: Constitutional: no acute distress, obese. Lying in bed, no acute complaints HEENT: normocephalic, atraumatic. EOMI, JIM. Mucous membranes moist. Neck Exam: Supple, trachea midline. JVD, tenderness, swelling Respiratory: CTA bilaterally. Rhonchi, wheezes, crackles Cardiovascular: S1, S2. No murmur, gallop, rubs GI: soft, surgical scars. Mild tenderness. Midline dressing C/D/I. #1 EMMA with greenish brown output. #2 EMMA with sero-sanguinous output, G tube and J tube to gravity Extremities: edema+ Skin Exam: intact, dry, warm. Neurological Exam: CN II-XII intact, normal reflexes, altered mental status, moving all extremities. Oriented to person and place Assessment and Plan - Assessment and Plan Plan: Neuro/Psych: Postop pain control Depression/anxiety Bipolar disorder NOS Fibromyalgia Chronic benzodiazepine use Currently on hydromorphone INSTALLATION HELPER per general surgery, Zofran for nausea vomiting. Ativan IV PRN for anxiety Patient's home medications include lorazepam 2 mg 4 times daily, hydroxyzine 25 mg 4 times daily. These have been held postoperatively Holding Diphendydramine 12.5 mg 3 times daily/home medication Receiving scheduled Ofirmev 1 g IV every 6 hours per general surgery Holding zolpidem 10 mg at night as needed insomnia. Holding loratadine 10 mg daily, cetirizine 10 mg daily for allergic rhinitis. CV: History of dyslipidemia Holding omega-3 fish oil. 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 Gastrostomy , Jejunostomy tube placement. Extensive lysis of adhesions, Open omentectomy. Intraabdominal drain #1 has new greenish brown, minimal output, Discussed with Dr. Rodarte about concern for leak. Drain #2 with serosanguineous output Strict NPO, broad spectrum antibiotics as below Currently on pantoprazole 40 mg IV daily./Home medication omeprazole 20 mg daily for gastroesophageal reflux disease Holding cholestyramine 4 g 3 times daily and docusate sodium 100 mg twice daily for constipation. Endo: Diabetes mellitus type 2/diet-controlled Hypothyroidism Sliding scale insulin with aspart insulin Accu-Cheks every 6 hours to maintain euglycemia/low regimen Patient is on levothyroxine 75 mcg through 10/21? Then on 150 mcg daily?. Medicine reconciliation. Currently holding. Might need IV while n.p.o. TSH suppressed will hold Synthroid for now Renal: Hypokalemia Powell catheter has been placed for accurate I's and O's in a postoperative patient Preoperative creatinine within normal limits Monitor urine output. Accurate I's and O's BMP, magnesium phosphorus in a.m. 10/19 Replace electrolytes as clinically indicated per ICU electrolyte protocol Heme: Microcytosis History of ampullary tumor since 2008 Monitor CBC daily. Follow trend Leukocytosis probably reactive and stress related, and trending down ID: Was on ciprofloxacin 400 mg IV twice daily, fluconazole 40 mg daily and metronidazole 500 mg every 8 hours per general surgery. Now only on Diflucan Add Azactam and Flagyl, and IV Vanc x1 MSK: Osteoporosis/osteoarthritis Elevated BMI History of right popliteal lipoma status post excision PT evaluate and treat Holding ergocalciferol 50,000 units q. Monday and cholecalciferol 5000 units daily. Access -Right IJ CVL placed in OR 10/18 -Right radial arterial line placed in OR 10/18-DCd Prophylaxis -GI -pantoprazole -DVT -SCD/pharmacological prophylaxis when okay with Dr. Beaulieu CCT 35 MIN There is change in 1st EMMA andrei output, no with greenish brown discharge, concern for a leak. Dr Rodarte discussed with Dr. Beaulieu, continue to observe, broad spectrum ABX as above Code Status: Full Discussed Condition With: Dr. Rodarte
[2017-10-22] MEDS ORDERED: Vancomycin Inj 1,000 MG in Sodium Chlor 0.9% Inj 250 ML IV.SIG ONE (12:00)
[2017-10-22] MEDS: Aztreonam Inj 2 GM in Sodium Chloride 0.9% Inj 100 ML IV.SIG SCH ×2 (15:00→20:06)
[2017-10-22] MEDS: Pantoprazole Inj 40 MG Vial IV.PUSH SCH (15:12)
--- NOTE | 2017-10-22 22:12 | P.PNGS ---
Subjective Patient reports: feels better (no acute issues, afebrile, wbc improving, tolerating ice chips some confusuion overnight) Physical Exam Vital signs: Vital Signs 10/22/17 00:00 10/22/17 02:00 10/22/17 04:00 Temperature 98.3 F 99.5 F Pulse Rate 87 92 H 86 Respiratory Rate 15 17 Blood Pressure 169/76 H 164/76 H Pulse Oximetry 93 L 94 L 10/22/17 06:00 10/22/17 07:37 10/22/17 08:00 Temperature Pulse Rate 92 H 98 H Respiratory Rate 16 Blood Pressure Pulse Oximetry 92 L 10/22/17 10:00 10/22/17 12:00 10/22/17 12:10 Temperature 99.4 F Pulse Rate 90 93 H Respiratory Rate 18 Blood Pressure 161/73 H Pulse Oximetry 97 10/22/17 14:00 10/22/17 16:00 10/22/17 18:00 Temperature 98.8 F Pulse Rate 93 H 83 83 Respiratory Rate 15 Blood Pressure Pulse Oximetry 98 10/22/17 19:38 Temperature Pulse Rate Respiratory Rate Blood Pressure Pulse Oximetry 99 Intake & Output 10/22/17 10/22/17 10/23/17 06:59 18:59 06:59 Intake Total 1600 / 1600 220 / 220 200 / 200 Output Total 2160 / 2160 855 / 855 Balance -560 / -560 -635 / -635 200 / 200 Weight 104.7 kg Intake: IV 1100 / 1100 200 / 200 200 / 200 NS Inj 1,000 ML @ 100 mls/hr IV 1000 / 1000 .CONT .Q10H [facility] Rx#:[id number] Ofirmev Inj 1,000 mg In 100 ml 100 / 100 @ 400 mls/hr IV.SIG Q6H PRN Rx# :[id number] Azactam Inj 2 GM In NS Inj 100 100 / 100 100 / 100 ML @ 200 mls/hr IV.SIG Q6H [facility] Rx#:[id number] KCl 40 mEq Premix Inj 40 meq In 100 / 100 100 ml @ 25 mls/hr IV.SIG Q2H PRN Rx#:[id number] Flagyl 500 MG Inj 100 ML @ 100 100 / 100 mls/hr IV.SIG Q8H [facility] Rx#: [id number] Oral 480 / 480 Tube Feeding 20 / 20 Tube Irrigant 20 / 20 Output: Urine Amount (Catheter) 1000 / 1000 350 / 350 Indwelling Urethral Catheter 1000 / 1000 350 / 350 Gastric Drainage 475 / 475 Gastrostomy Tube (PEG) 350 / 350 Left Upper Quadrant Jejunostomy 125 / 125 Tube Wound Drainage 685 / 685 505 / 505 # 1 KAELYN Drain 10 / 10 5 / 5 #2 KAELYN Drain 200 / 200 50 / 50 #3 J Tube Drain (Red) 350 / 350 300 / 300 #4 G Tube Drain (Clear) 125 / 125 150 / 150 - Routine Abdominal Exam Present: soft (j tube gravity c/d/i, g tube gravity c/d/i, kaelyn 2 serosang, jp1 bilious ) - Urinary Catheter Management Indwelling Urethral Catheter Cath placed during this visit: yes Urethral indwelling: Yes Reason for continuing: Hourly intake/output Insertion date: 10/18/17 Insertion time: 09:00 Assessment and Plan - Assessment (1) Ampulla of Vater mass Code(s): K83.9 - Disease of biliary tract, unspecified Status: Acute - Plan s/p whipple Continue sips clears ok for home levothyroxine Keep in [facility] over weekend monitor kaelyn start abx replace K labs in AM Discuss with Dr. Beaulieu and Dr Caraballo
[2017-10-23] MEDS: Aztreonam Inj 2 GM in Sodium Chloride 0.9% Inj 100 ML IV.SIG SCH ×4 (00:59→20:06)
[2017-10-23] MEDS: Insulin NovoLOG Aspart Correctional Sugar Inj SQ SCH ×4 (01:41→17:26)
[2017-10-23] MEDS: Heparin - SQ 10,000 UNITS/ML Vial SQ SCH ×3 (05:20→23:28)
[2017-10-23] MEDS: LEVOTHYROXINE 150 MCG PO SCH (05:43)
--- NOTE | 2017-10-23 08:29 | P.PNCC ---
Subjective Subjective Remarks/Hospital Course: This is a 62-year-old female. Date of admission 10/18/2017. Date of consultation 10/18/2017. Past medical history includes fibromyalgia, bipolar disorder, depression/anxiety, dyslipidemia, prior history of tobaccoism 20 pack years quit 2 years ago, allergic rhinitis, osteoporosis/osteoarthritis, chronic constipation, hypothyroidism, insomnia, diabetes mellitus, chronic benzodiazepine use, oropharyngeal dysphagia, gastroesophageal reflux disease and right popliteal lipoma. Patient was originally diagnosed with an ampullary tumor 2008. Was followed by Dr. Frazier. Patient had recurrent dilatations. Patient had a ampullectomy procedure 05/2016. Due to her underlying recurrent stricture and suspicion of ampullary cancer, patient underwent another Whipple procedure today 10/19/[address] Beaulieu Received 4800 cc crystalloid. EBL 100 cc. 500 cc urine output. Patient received 400 mg of ciprofloxacin in surgery. She currently has a new GJ tube. She has 2 JPs with serosanguineous drainage in the right upper quadrant/ midline. There is a abhilash drain in place. Dressing is clean dry and intact. She is currently arousable on 3 L nasal cannula in no acute distress. A hydromorphone BUSINESS OFFICE DIRECTOR is about to be initiated. Preoperative labs revealed a microcytosis only. She also slightly elevated blood sugar for diet-controlled diabetes. SUBJ 10/19: Patient is lying completely portably in bed no acute distress. Pain adequately controlled with BUSINESS OFFICE DIRECTOR. Postop note reviewed s/p pancreaticoduodenectomy (Whipple procedure) with Mindi-en-Y reconstruction. 2. Gastrostomy, Jejunostomy tube placement. Extensive lysis of adhesions, Open omentectomy. 10/20: Lying in bed not in any acute distress. WBC count is elevated at 17.6 today probably postop stress related. Potassium 3.3 getting replaced. No fever or any other evidence of infection, no evidence of leak 10/21: Clinically stable, WBC improving from 17.6 to 14.2. Serosanguineous drainage from right EMMA drain. Intermittently confused in a.m. most likely related to Dilaudid and Ativan. Dr. Jim has reduced Ativan dosage 10/22: One of the EMMA drains (#1) showing greenish brown output today, was serosanguineous yesterday. I discussed with Dr. Rodarte about possibility of leak, he will discuss Dr. Beaulieu. Continue strict n.p.o. continue broad- spectrum antibiotics. WBC improving, no fever 14.2 to 11.9 today. CMP normal except K 3.1, getting replaced. 10/23: Breathing comfortably while supine. Leukocytosis decreasing. Abdominal drain contents minimal. Objective Vital Signs / I&O: Vital Signs 10/22/17 10:00 10/22/17 12:00 10/22/17 12:10 Temperature 99.4 F Pulse Rate 90 93 H Respiratory Rate 18 Blood Pressure 161/73 H Pulse Oximetry 97 10/22/17 14:00 10/22/17 16:00 10/22/17 18:00 Temperature 98.8 F Pulse Rate 93 H 83 83 Respiratory Rate 15 Blood Pressure Pulse Oximetry 98 10/22/17 19:38 10/22/17 20:00 10/22/17 22:00 Temperature 99.1 F Pulse Rate 93 H 84 Respiratory Rate 16 Blood Pressure 141/67 H Pulse Oximetry 99 98 10/22/17 23:00 10/23/17 00:00 10/23/17 02:00 Temperature 99.1 F Pulse Rate 84 84 Respiratory Rate 16 Blood Pressure 142/64 H Pulse Oximetry 99 98 10/23/17 03:00 10/23/17 04:00 10/23/17 06:00 Temperature 99 F Pulse Rate 84 84 Respiratory Rate 16 Blood Pressure 123/60 Pulse Oximetry 99 97 10/23/17 07:32 Temperature Pulse Rate Respiratory Rate Blood Pressure Pulse Oximetry 96 Intake & Output 10/22/17 10/23/17 10/23/17 18:59 06:59 18:59 Intake Total 220 / 220 400 / 400 Output Total 855 / 855 1590 / 1590 Balance -635 / -635 -1190 / -1190 Weight 107.3 kg Intake: IV 200 / 200 400 / 400 Azactam Inj 2 GM In NS Inj 100 100 / 100 200 / 200 ML @ 200 mls/hr IV.SIG Q6H [facility] Rx#:[id number] KCl 40 mEq Premix Inj 40 meq In 100 / 100 100 ml @ 25 mls/hr IV.SIG Q2H PRN Rx#:[id number] Flagyl 500 MG Inj 100 ML @ 100 200 / 200 mls/hr IV.SIG Q8H [facility] Rx#: [id number] Oral 0 / 0 Tube Feeding 20 / 20 Output: Urine Amount (Catheter) 350 / 350 1450 / 1450 Indwelling Urethral Catheter 350 / 350 1450 / 1450 Gastric Drainage 100 / 100 Gastrostomy Tube (PEG) 100 / 100 Left Upper Quadrant Jejunostomy 0 / 0 Tube Wound Drainage 505 / 505 40 / 40 # 1 EMMA Drain 5 / 5 # 2 Right Medial Abdomen EMMA 40 / 40 Drain #2 EMMA Drain 50 / 50 #3 J Tube Drain (Red) 300 / 300 0 / 0 #4 G Tube Drain (Clear) 150 / 150 Result Diagrams: 10/22/17 05:30 10/22/17 05:30 Objective Remarks: Constitutional: no acute distress, obese. Lying in bed, no acute complaints HEENT: normocephalic, atraumatic. EOMI, JIM. Mucous membranes moist. Neck Exam: Supple, trachea midline. JVD, tenderness, swelling. Airway widely patent, no obstructive noises. Respiratory: CTA bilaterally. No rhonchi, wheezes, crackles Cardiovascular: S1, S2. No murmur, gallop, rubs. No JVD. GI: soft, surgical scars. Mild tenderness. Midline dressing C/D/I. #1 EMMA with greenish brown output. #2 EMMA with sero-sanguinous output, G tube and J tube to gravity Extremities: Warm, well-perfused, trace edema at the ankles. Skin Exam: intact, dry, warm. Neurological Exam: CN II-XII intact, normal reflexes, altered mental status, moving all extremities. Oriented to person and place Assessment and Plan - Assessment and Plan Plan: Neuro/Psych: Postop pain control Depression/anxiety Bipolar disorder NOS Fibromyalgia Chronic benzodiazepine use Currently on hydromorphone BUSINESS OFFICE DIRECTOR per general surgery, Zofran for nausea vomiting. Ativan IV PRN for anxiety Patient's home medications include lorazepam 2 mg 4 times daily, hydroxyzine 25 mg 4 times daily. These have been held postoperatively Holding Diphendydramine 12.5 mg 3 times daily/home medication Receiving scheduled Ofirmev 1 g IV every 6 hours per general surgery Holding zolpidem 10 mg at night as needed insomnia. Holding loratadine 10 mg daily, cetirizine 10 mg daily for allergic rhinitis. CV: History of dyslipidemia Holding omega-3 fish oil. 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 Gastrostomy , Jejunostomy tube placement. Extensive lysis of adhesions, Open omentectomy. Intraabdominal drain #1 has new greenish brown, minimal output, Discussed with Dr. Rodarte about concern for leak. Drain #2 with serosanguineous output Strict NPO, broad spectrum antibiotics as below Currently on pantoprazole 40 mg IV daily./Home medication omeprazole 20 mg daily for gastroesophageal reflux disease Holding cholestyramine 4 g 3 times daily and docusate sodium 100 mg twice daily for constipation. Endo: Diabetes mellitus type 2/diet-controlled Hypothyroidism Sliding scale insulin with aspart insulin Accu-Cheks every 6 hours to maintain euglycemia/low regimen Patient is on levothyroxine 75 mcg through 10/21? Then on 150 mcg daily?. Medicine reconciliation. Currently holding. Might need IV while n.p.o. TSH suppressed will hold Synthroid for now Renal: Hypokalemia Powell catheter has been placed for accurate I's and O's in a postoperative patient Preoperative creatinine within normal limits Monitor urine output. Accurate I's and O's BMP, magnesium phosphorus in a.m. 10/19 Replace electrolytes as clinically indicated per ICU electrolyte protocol Heme: Microcytosis History of ampullary tumor since 2008 Monitor CBC daily. Follow trend Leukocytosis probably reactive and stress related, and trending down ID: Was on ciprofloxacin 400 mg IV twice daily, fluconazole 40 mg daily and metronidazole 500 mg every 8 hours per general surgery. Now only on Diflucan Add Azactam and Flagyl, and IV Vanc x1 MSK: Osteoporosis/osteoarthritis Elevated BMI History of right popliteal lipoma status post excision PT evaluate and treat Holding ergocalciferol 50,000 units q. Alistair Monday and cholecalciferol 5000 units daily. Access -Right IJ CVL placed in OR 10/18 -Right radial arterial line placed in OR 10/18-DCd Prophylaxis -GI -pantoprazole -DVT -SCD/pharmacological prophylaxis when okay with Dr. Beaulieu
--- NOTE | 2017-10-23 14:05 | P.PNGS ---
Subjective Interval history: No issues; asking for anxiety medication Physical Exam Vital signs: Vital Signs 10/22/17 16:00 10/22/17 18:00 10/22/17 19:38 Temperature 98.8 F Pulse Rate 83 83 Respiratory Rate 15 Blood Pressure Pulse Oximetry 98 99 10/22/17 20:00 10/22/17 22:00 10/22/17 23:00 Temperature 99.1 F Pulse Rate 93 H 84 Respiratory Rate 16 Blood Pressure 141/67 H Pulse Oximetry 98 99 10/23/17 00:00 10/23/17 02:00 10/23/17 03:00 Temperature 99.1 F Pulse Rate 84 84 Respiratory Rate 16 Blood Pressure 142/64 H Pulse Oximetry 98 99 10/23/17 04:00 10/23/17 06:00 10/23/17 07:32 Temperature 99 F Pulse Rate 84 84 Respiratory Rate 16 Blood Pressure 123/60 Pulse Oximetry 97 96 10/23/17 08:00 Temperature Pulse Rate Respiratory Rate 16 Blood Pressure Pulse Oximetry Intake & Output 10/22/17 10/23/17 10/23/17 18:59 06:59 18:59 Intake Total 220 / 220 400 / 400 100 / 100 Output Total 855 / 855 1590 / 1590 Balance -635 / -635 -1190 / -1190 100 / 100 Weight 107.3 kg Intake: IV 200 / 200 400 / 400 100 / 100 Azactam Inj 2 GM In NS Inj 100 100 / 100 200 / 200 100 / 100 ML @ 200 mls/hr IV.SIG Q6H [facility] Rx#:[id number] KCl 40 mEq Premix Inj 40 meq In 100 / 100 100 ml @ 25 mls/hr IV.SIG Q2H PRN Rx#:[id number] Flagyl 500 MG Inj 100 ML @ 100 200 / 200 mls/hr IV.SIG Q8H [facility] Rx#: [id number] Oral 0 / 0 Tube Feeding 20 / 20 Output: Urine Amount (Catheter) 350 / 350 1450 / 1450 Indwelling Urethral Catheter 350 / 350 1450 / 1450 Gastric Drainage 100 / 100 Gastrostomy Tube (PEG) 100 / 100 Left Upper Quadrant Jejunostomy 0 / 0 Tube Wound Drainage 505 / 505 40 / 40 # 1 EMMA Drain 5 / 5 # 2 Right Medial Abdomen EMMA 40 / 40 Drain #2 EMMA Drain 50 / 50 #3 J Tube Drain (Red) 300 / 300 0 / 0 #4 G Tube Drain (Clear) 150 / 150 Narrative: Alert and awake Cardio: RRR Resp: CTAB Abd: incision c/d/i; EMMA 1 with darker green tint fluid; EMMA 2 with SS drainage G tube to gravity bag; J tube to gravity bag - Urinary Catheter Management Indwelling Urethral Catheter Cath placed during this visit: yes Urethral indwelling: Yes Reason for continuing: Hourly intake/output Insertion date: 10/18/17 Insertion time: 09:00 Assessment and Plan - Assessment (1) Ampulla of Vater mass Code(s): K83.9 - Disease of biliary tract, unspecified Status: Acute - Plan 62 year old female POD5 Whipple -Await pathology -Clamp G tube -Continue J tube to gravity -Start clear liquids -Continue Flagyl/Azactam -Ativan Q6 -Heparin for DVT proph -OOB; PT following -Discussed with MIKE Holland
[2017-10-23] MEDS: Pantoprazole Inj 40 MG Vial IV.PUSH SCH (17:06)
[2017-10-24] MEDS: HYDROmorphone PCA Inj 6 MG/30 ML PCA.VIAL PCA PRN (00:13)
[2017-10-24] MEDS: Sod Chloride 0.9% Inj 1,000 ML IV.CONT SCH (01:40)
[2017-10-24] MEDS: Aztreonam Inj 2 GM in Sodium Chloride 0.9% Inj 100 ML IV.SIG SCH ×4 (03:00→20:58)
[2017-10-24 05:57] LABS: Baso % (Auto) 0.3 % (0.0-2.0); Eos # (Auto) 0.3 th/mm3 (0.0-0.4); Eos % (Auto) 2.3 % (0.0-4.0); Hematocrit 29.2 % (35.0-46.0); Hemoglobin 9.6 gm/dL (11.6-15.3); Lymph # (Auto) 1.7 th/mm3 (1.0-4.8); Lymph % (Auto) 13.3 % (9.0-44.0); Mean Corpuscular HGB Conc 32.8 % (32.0-36.0); Mean Corpuscular Hemoglobin 25.7 pg (27.0-34.0); Mean Corpuscular Volume 78.4 fL (80.0-100.0); Mean Platelet Volume 8.5 fL (7.0-11.0); Mono # (Auto) 0.8 th/mm3 (0.0-0.9); Mono % (Auto) 6.3 % (0.0-8.0); Neut # (Auto) 9.7 th/mm3 (1.8-7.7); Neut % (Auto) 77.8 % (16.0-70.0); Platelet Count 295 th/mm3 (150-450); Red Blood Count 3.72 mil/mm3 (4.00-5.30); Red Cell Distribution Width 14.5 % (11.6-17.2); White Blood Count 12.5 th/mm3 (4.0-11.0)
[2017-10-24 06:10] LABS: Anion Gap 8 meq/L (5-15); Blood Urea Nitrogen 6 mg/dL (7-18); Calcium 7.6 mg/dL (8.5-10.1); Carbon Dioxide 25.9 meq/L (21.0-32.0); Chloride 101 meq/L (98-107); Glomerular Filtration Rate Greater Than 89 mL/min (>89); Glucose,Random 104 mg/dL (74-106); Sodium 135 meq/L (136-145)
[2017-10-24 06:11] LABS: Potassium 2.9 meq/L (3.5-5.1)
[2017-10-24] MEDS: Heparin - SQ 10,000 UNITS/ML Vial SQ SCH ×3 (06:22→22:32)
[2017-10-24] MEDS: LEVOTHYROXINE 150 MCG PO SCH (06:22)
[2017-10-24] MEDS: Insulin NovoLOG Aspart Correctional Sugar Inj SQ SCH ×4 (06:34→18:16)
[2017-10-24] MEDS: Potassium Chlor 20 mEq Premix 20 MEQ/100 ML PIGGYBACK IV.SIG PRN ×4 (06:34→14:01)
[2017-10-24] MEDS: Potassium Chloride 25 MEQ Effervescent Tablet PO PRN (06:34)
--- NOTE | 2017-10-24 11:02 | P.PNGS ---
<SandraRachel - Last Filed: 10/24/17 10:58> Subjective Interval history: Alert and awake; pain better today Physical Exam Vital signs: Vital Signs 10/23/17 12:00 10/23/17 14:00 10/23/17 14:54 Temperature 98.9 F Pulse Rate 86 85 Respiratory Rate 16 Blood Pressure 140/63 Pulse Oximetry 99 98 10/23/17 16:00 10/23/17 18:00 10/23/17 19:00 Temperature 99.0 F Pulse Rate 90 88 Respiratory Rate 18 Blood Pressure 127/58 L Pulse Oximetry 92 L 92 L 10/23/17 19:33 10/23/17 20:02 10/23/17 22:00 Temperature 99.2 F Pulse Rate 90 90 Respiratory Rate 21 Blood Pressure 124/59 L Pulse Oximetry 92 L 92 L 10/24/17 00:00 10/24/17 01:19 10/24/17 02:05 Temperature 100.0 F H Pulse Rate 79 78 Respiratory Rate 16 Blood Pressure 114/57 L Pulse Oximetry 91 L 90 L 10/24/17 04:00 10/24/17 06:00 10/24/17 08:00 Temperature 98.7 F Pulse Rate 77 86 77 Respiratory Rate 14 16 Blood Pressure 116/58 L Pulse Oximetry 92 L 10/24/17 08:06 10/24/17 10:00 Temperature Pulse Rate 87 Respiratory Rate Blood Pressure Pulse Oximetry 92 L Intake & Output 10/23/17 10/24/17 10/24/17 18:59 06:59 18:59 Intake Total 1020 / 1020 1800 / 1800 300 / 300 Output Total 1448 / 1448 1470 / 1470 Balance -428 / -428 330 / 330 300 / 300 Weight 105.4 kg Intake: IV 300 / 300 1300 / 1300 300 / 300 NS Inj 1,000 ML @ 100 mls/hr IV 1000 / 1000 .CONT .Q10H [facility] Rx#:[id number] Azactam Inj 2 GM In NS Inj 100 200 / 200 200 / 200 100 / 100 ML @ 200 mls/hr IV.SIG Q6H [facility] Rx#:[id number] KCl 20 mEq Premix Inj 20 meq In 100 / 100 100 ml @ 50 mls/hr IV.SIG Q2H PRN Rx#:[id number] Flagyl 500 MG Inj 100 ML @ 100 100 / 100 100 / 100 100 / 100 mls/hr IV.SIG Q8H [facility] Rx#: [id number] Oral 720 / 720 500 / 500 Output: Urine 1200 / 1200 Urine Amount (Catheter) 1250 / 1250 Indwelling Urethral Catheter 1250 / 1250 Gastric Drainage 240 / 240 100 / 100 Gastrostomy Tube (PEG) 0 / 0 Left Upper Quadrant Jejunostomy 240 / 240 100 / 100 Tube Wound Drainage 8 / 8 120 / 120 # 1 EMMA Drain 3 / 3 20 / 20 #2 EMMA Drain 5 / 5 100 / 100 Other: # Bowel Movements 0 Narrative: Alert awake visiting with My: Regular rate and rhythm Respiratory: Clear to auscultation bilaterally Abdomen: ALEJANDRA in place with good seal; JP1 with green tint fluid; jp2 with SS drainage; G tube clamped; J tube to gravity bag; pain minimal with palpation - Urinary Catheter Management Indwelling Urethral Catheter Cath placed during this visit: yes Urethral indwelling: Yes Reason for continuing: Hourly intake/output Insertion date: 10/18/17 Insertion time: 09:00 Assessment and Plan - Assessment (1) Ampulla of Vater mass Code(s): K83.9 - Disease of biliary tract, unspecified Status: Acute - Plan 62 year old female POD6 Whipple -Await pathology -Continue to clamp G tube -Continue J tube to gravity -Continue clear liquids -Continue Flagyl/Azactam -Ativan Q6 -Heparin for DVT proph -OOB; PT following -Discussed with MIKE Holland <Bruno Beaulieu - Last Filed: 11/07/17 10:45> Physical Exam - Urinary Catheter Management Indwelling Urethral Catheter Cath placed during this visit: no Assessment and Plan - Assessment (1) Ampulla of Vater mass Code(s): K83.9 - Disease of biliary tract, unspecified Status: Acute - Attending Attestation The exam, history, and the medical decision-making described in the above note were completed with the assistance of the mid-level provider. I reviewed and agree with the findings presented. I attest that I had a [id number] encounter with the patient on the same day, and personally performed and documented my assessment and findings in the medical record. s/p Whipple, stable keep EMMA and antibiotics, watch closely for leak continue OOB and PT encourage diet appreciate chemical plant operator supervisor help
--- NOTE | 2017-10-24 11:54 | P.PNCC ---
Subjective Subjective Remarks/Hospital Course: This is a 62-year-old female. Date of admission 10/18/2017. Date of consultation 10/18/2017. Past medical history includes fibromyalgia, bipolar disorder, depression/anxiety, dyslipidemia, prior history of tobaccoism 20 pack years quit 2 years ago, allergic rhinitis, osteoporosis/osteoarthritis, chronic constipation, hypothyroidism, insomnia, diabetes mellitus, chronic benzodiazepine use, oropharyngeal dysphagia, gastroesophageal reflux disease and right popliteal lipoma. Patient was originally diagnosed with an ampullary tumor 2008. Was followed by Dr. Frazier. Patient had recurrent dilatations. Patient had a ampullectomy procedure 05/2016. Due to her underlying recurrent stricture and suspicion of ampullary cancer, patient underwent another Whipple procedure today 10/19/[address] Beaulieu Received 4800 cc crystalloid. EBL 100 cc. 500 cc urine output. Patient received 400 mg of ciprofloxacin in surgery. She currently has a new GJ tube. She has 2 JPs with serosanguineous drainage in the right upper quadrant/ midline. There is a abhilash drain in place. Dressing is clean dry and intact. She is currently arousable on 3 L nasal cannula in no acute distress. A hydromorphone [employer] OPERATOR is about to be initiated. Preoperative labs revealed a microcytosis only. She also slightly elevated blood sugar for diet-controlled diabetes. SUBJ 10/19: Patient is lying completely portably in bed no acute distress. Pain adequately controlled with [employer] OPERATOR. Postop note reviewed s/p pancreaticoduodenectomy (Whipple procedure) with Mindi-en-Y reconstruction. 2. Gastrostomy, Jejunostomy tube placement. Extensive lysis of adhesions, Open omentectomy. 10/20: Lying in bed not in any acute distress. WBC count is elevated at 17.6 today probably postop stress related. Potassium 3.3 getting replaced. No fever or any other evidence of infection, no evidence of leak 10/21: Clinically stable, WBC improving from 17.6 to 14.2. Serosanguineous drainage from right EMMA drain. Intermittently confused in a.m. most likely related to Dilaudid and Ativan. Dr. Jim has reduced Ativan dosage 10/22: One of the EMMA drains (#1) showing greenish brown output today, was serosanguineous yesterday. I discussed with Dr. Rodarte about possibility of leak, he will discuss Dr. Beaulieu. Continue strict n.p.o. continue broad- spectrum antibiotics. WBC improving, no fever 14.2 to 11.9 today. CMP normal except K 3.1, getting replaced. 10/23: Breathing comfortably while supine. Leukocytosis decreasing. Abdominal drain contents minimal. 10/24: Remains well hydrated and well perfused. Less pain today. T-max 100.6, otherwise afebrile. Objective Vital Signs / I&O: Vital Signs 10/23/17 12:00 10/23/17 14:00 10/23/17 14:54 Temperature 98.9 F Pulse Rate 86 85 Respiratory Rate 16 Blood Pressure 140/63 Pulse Oximetry 99 98 10/23/17 16:00 10/23/17 18:00 10/23/17 19:00 Temperature 99.0 F Pulse Rate 90 88 Respiratory Rate 18 Blood Pressure 127/58 L Pulse Oximetry 92 L 92 L 10/23/17 19:33 10/23/17 20:02 10/23/17 22:00 Temperature 99.2 F Pulse Rate 90 90 Respiratory Rate 21 Blood Pressure 124/59 L Pulse Oximetry 92 L 92 L 10/24/17 00:00 10/24/17 01:19 10/24/17 02:05 Temperature 100.0 F H Pulse Rate 79 78 Respiratory Rate 16 Blood Pressure 114/57 L Pulse Oximetry 91 L 90 L 10/24/17 04:00 10/24/17 06:00 10/24/17 08:00 Temperature 98.7 F Pulse Rate 77 86 77 Respiratory Rate 14 16 Blood Pressure 116/58 L Pulse Oximetry 92 L 10/24/17 08:06 10/24/17 10:00 Temperature Pulse Rate 87 Respiratory Rate Blood Pressure Pulse Oximetry 92 L Intake & Output 10/23/17 10/24/17 10/24/17 18:59 06:59 18:59 Intake Total 1020 / 1020 1800 / 1800 400 / 400 Output Total 1448 / 1448 1470 / 1470 Balance -428 / -428 330 / 330 400 / 400 Weight 105.4 kg Intake: IV 300 / 300 1300 / 1300 400 / 400 NS Inj 1,000 ML @ 100 mls/hr IV 1000 / 1000 .CONT .Q10H [facility] Rx#:[id number] Azactam Inj 2 GM In NS Inj 100 200 / 200 200 / 200 100 / 100 ML @ 200 mls/hr IV.SIG Q6H [facility] Rx#:[id number] KCl 20 mEq Premix Inj 20 meq In 200 / 200 100 ml @ 50 mls/hr IV.SIG Q2H PRN Rx#:[id number] Flagyl 500 MG Inj 100 ML @ 100 100 / 100 100 / 100 100 / 100 mls/hr IV.SIG Q8H [facility] Rx#: [id number] Oral 720 / 720 500 / 500 Output: Urine 1200 / 1200 Urine Amount (Catheter) 1250 / 1250 Indwelling Urethral Catheter 1250 / 1250 Gastric Drainage 240 / 240 100 / 100 Gastrostomy Tube (PEG) 0 / 0 Left Upper Quadrant Jejunostomy 240 / 240 100 / 100 Tube Wound Drainage 8 / 8 120 / 120 # 1 EMMA Drain 3 / 3 20 / 20 #2 EMMA Drain 5 / 5 100 / 100 Other: # Bowel Movements 0 Result Diagrams: 10/24/17 05:20 10/24/17 05:20 Objective Remarks: Constitutional: no acute distress, obese. Lying in bed, no acute complaints HEENT: normocephalic, atraumatic. EOMI, JIM. Mucous membranes moist. Neck Exam: Supple, trachea midline. No JVD, tenderness, or swelling. Airway widely patent, no obstructive noises. Respiratory: Clear to auscultation bilaterally. No rhonchi, wheezes, crackles Cardiovascular: S1, S2. No murmur, gallop, rubs. No JVD. GI: soft, surgical scars. Mild tenderness. Midline dressing C/D/I. #1 EMMA with greenish brown output. #2 EMMA with sero-sanguinous output, G tube clamped and J tube to gravity Extremities: Warm, well-perfused, trace edema at the ankles. Skin Exam: intact, dry, warm. Neurological Exam: CN II-XII intact, normal reflexes, altered mental status, moving all extremities. Oriented to person and place. Conversant. Assessment and Plan - Assessment and Plan Plan: Neuro/Psych: Postop pain control Depression/anxiety Bipolar disorder NOS Fibromyalgia Chronic benzodiazepine use Currently on hydromorphone [employer] per general surgery, Zofran for nausea vomiting. Ativan IV PRN for anxiety Patient's home medications include lorazepam 2 mg 4 times daily, hydroxyzine 25 mg 4 times daily. These have been held postoperatively Holding Diphendydramine 12.5 mg 3 times daily/home medication Receiving scheduled Ofirmev 1 g IV every 6 hours per general surgery Holding zolpidem 10 mg at night as needed insomnia. Holding loratadine 10 mg daily, cetirizine 10 mg daily for allergic rhinitis. CV: History of dyslipidemia Holding omega-3 fish oil. 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 Gastrostomy , Jejunostomy tube placement. Extensive lysis of adhesions, Open omentectomy. Intraabdominal drain #1 has new greenish brown, minimal output, Discussed with Dr. Rodarte about concern for leak. Drain #2 with serosanguineous output Strict NPO, broad spectrum antibiotics as below Currently on pantoprazole 40 mg IV daily./Home medication omeprazole 20 mg daily for gastroesophageal reflux disease Holding cholestyramine 4 g 3 times daily and docusate sodium 100 mg twice daily for constipation. Endo: Diabetes mellitus type 2/diet-controlled Hypothyroidism Sliding scale insulin with aspart insulin Accu-Cheks every 6 hours to maintain euglycemia/low regimen Patient is on levothyroxine 75 mcg through 10/21? Then on 150 mcg daily?. Medicine reconciliation. Currently holding. Might need IV while n.p.o. TSH suppressed will hold Synthroid for now Renal: Hypokalemia Powell catheter has been placed for accurate I's and O's in a postoperative patient Preoperative creatinine within normal limits Monitor urine output. Accurate I's and O's BMP, magnesium phosphorus in a.m. 10/19 Replace electrolytes as clinically indicated per ICU electrolyte protocol Persistent hypokalemia, continue to replace. Heme: Microcytosis History of ampullary tumor since 2008 Monitor CBC daily. Follow trend Leukocytosis probably reactive and stress related, and trending down ID: Was on ciprofloxacin 400 mg IV twice daily, fluconazole 40 mg daily and metronidazole 500 mg every 8 hours per general surgery. Now only on Diflucan Add Azactam and Flagyl, and IV Vanc x1 MSK: Osteoporosis/osteoarthritis Elevated BMI History of right popliteal lipoma status post excision PT evaluate and treat Holding ergocalciferol 50,000 units q. Monday and cholecalciferol 5000 units daily. Access -Right IJ CVL placed in OR 10/18 -Right radial arterial line placed in OR 10/18-DCd Prophylaxis -GI -pantoprazole -DVT -SCD/pharmacological prophylaxis when okay with Dr. Beaulieu Overall impression: Comfortable respiratory pattern and stable normal hemodynamics status post major abdominal surgery.
[2017-10-24] MEDS: Pantoprazole Inj 40 MG Vial IV.PUSH SCH (15:40)
[2017-10-25] MEDS: Potassium Chloride 25 MEQ Effervescent Tablet PO PRN (00:55)
[2017-10-25] MEDS: Sod Chloride 0.9% Inj 1,000 ML IV.CONT SCH (01:15)
[2017-10-25] MEDS: Insulin NovoLOG Aspart Correctional Sugar Inj SQ SCH ×3 (01:16→13:12)
[2017-10-25] MEDS: Aztreonam Inj 2 GM in Sodium Chloride 0.9% Inj 100 ML IV.SIG SCH ×4 (02:13→21:04)
[2017-10-25] MEDS: LEVOTHYROXINE 150 MCG PO SCH (05:09)
[2017-10-25] MEDS: Heparin - SQ 10,000 UNITS/ML Vial SQ SCH ×3 (05:09→21:03)
[2017-10-25 06:27] LABS: Baso % (Auto) 0.3 % (0.0-2.0); Eos # (Auto) 0.3 th/mm3 (0.0-0.4); Eos % (Auto) 2.3 % (0.0-4.0); Hematocrit 28.6 % (35.0-46.0); Hemoglobin 9.2 gm/dL (11.6-15.3); Lymph % (Auto) 14.5 % (9.0-44.0); Mean Corpuscular HGB Conc 32.2 % (32.0-36.0); Mean Corpuscular Hemoglobin 25.1 pg (27.0-34.0); Mean Corpuscular Volume 78.2 fL (80.0-100.0); Mean Platelet Volume 7.8 fL (7.0-11.0); Mono # (Auto) 0.8 th/mm3 (0.0-0.9); Mono % (Auto) 5.7 % (0.0-8.0); Neut # (Auto) 10.8 th/mm3 (1.8-7.7); Neut % (Auto) 77.2 % (16.0-70.0); Platelet Count 379 th/mm3 (150-450); Red Blood Count 3.66 mil/mm3 (4.00-5.30); Red Cell Distribution Width 14.7 % (11.6-17.2)
[2017-10-25 06:47] LABS: Anion Gap 9 meq/L (5-15); Blood Urea Nitrogen 5 mg/dL (7-18); Calcium 7.8 mg/dL (8.5-10.1); Carbon Dioxide 26.9 meq/L (21.0-32.0); Chloride 102 meq/L (98-107); Glomerular Filtration Rate Greater Than 89 mL/min (>89); Glucose,Random 99 mg/dL (74-106); Potassium 3.3 meq/L (3.5-5.1); Sodium 138 meq/L (136-145)
--- NOTE | 2017-10-25 09:01 | P.PNGS ---
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 as it causes her "fighter jet dreams" Physical Exam Vital signs: Vital Signs 10/24/17 10:00 10/24/17 12:00 10/24/17 13:47 Temperature 98.8 F Pulse Rate 87 78 78 Respiratory Rate 20 Blood Pressure 119/57 L Pulse Oximetry 94 L 10/24/17 15:33 10/24/17 16:00 10/24/17 17:36 Temperature 98.9 F Pulse Rate 77 108 H 87 Respiratory Rate 18 24 Blood Pressure 128/58 L Pulse Oximetry 100 10/24/17 20:10 10/24/17 20:14 10/24/17 22:05 Temperature 99.1 F Pulse Rate 87 80 Respiratory Rate 14 Blood Pressure 93/51 L Pulse Oximetry 93 L 99 10/25/17 00:00 10/25/17 02:00 10/25/17 04:00 Temperature 98.7 F Pulse Rate 89 80 Respiratory Rate 17 Blood Pressure 108/54 L Pulse Oximetry 92 L 92 L 10/25/17 04:10 10/25/17 06:00 Temperature 98.5 F Pulse Rate 79 79 Respiratory Rate 15 Blood Pressure 100/54 L Pulse Oximetry 92 L Intake & Output 10/24/17 10/25/17 10/25/17 18:59 06:59 18:59 Intake Total 1420 / 1420 1780 / 1780 Output Total 1320 / 1320 330 / 330 Balance 100 / 100 1450 / 1450 Weight 104.6 kg Intake: IV 700 / 700 1300 / 1300 NS Inj 1,000 ML @ 100 mls/hr IV 1000 / 1000 .CONT .Q10H [facility] Rx#:[id number] Azactam Inj 2 GM In NS Inj 100 200 / 200 200 / 200 ML @ 200 mls/hr IV.SIG Q6H [facility] Rx#:[id number] KCl 20 mEq Premix Inj 20 meq In 300 / 300 100 ml @ 50 mls/hr IV.SIG Q2H [facility]N Rx#:[id number] Flagyl 500 MG Inj 100 ML @ 100 200 / 200 100 / 100 mls/hr IV.SIG Q8H [facility] Rx#: [id number] Oral 720 / 720 480 / 480 Output: Urine 200 / 200 Estimated Blood Loss 100 / 100 Urine Amount (Catheter) 750 / 750 Indwelling Urethral Catheter 750 / 750 Gastric Drainage 200 / 200 Gastrostomy Tube (PEG) 0 / 0 Left Upper Quadrant Jejunostomy 200 / 200 Tube Wound Drainage 370 / 370 30 / 30 # 1 EMMA Drain 20 / 20 #2 EMMA Drain 120 / 120 10 / 10 #3 J Tube Drain (Red) 250 / 250 Other: # Voids 5 # Bowel Movements 0 Narrative: Resting in bed; alert and awake Cardio: RRR Resp: CTAB Abd: ALEJANDRA in place with good seal; JP1 with minimal brown tint fluid; JP2 with SS drainag; G tube clamped; J tube to gravity bag Miild BLE edema - Urinary Catheter Management Indwelling Urethral Catheter Cath placed during this visit: yes, but has since been removed by the nurse Urethral indwelling: Yes Reason for continuing: Not indwelling catheter Insertion date: 10/18/17 Insertion time: 09:00 Removal date: 10/24/17 Removal time: 15:00 Assessment and Plan - Assessment (1) Ampulla of Vater mass Code(s): K83.9 - Disease of biliary tract, unspecified Status: Acute - Plan 62 year old female POD6 Whipple -Replace K today -Pathology reviewed yesterday with patient by Dr. Beaulieu -Continue to clamp G tube -Continue J tube to gravity -Continue clear liquids -Continue Flagyl/Azactam -Ativan Q6 -DCA HEAV[employer] EQUIPMENT TECHNICIAN; PRN Ofirmiv -Patient may take home supply of Synthroid as prescribed by Beronica Huntley MD -Heparin for DVT proph -OOB; PT following -Discussed with MIKE Grayson -Transfer to when bed available <Bruno Beaulieu - Last Filed: 11/07/17 10:49> Physical Exam - Urinary Catheter Management Indwelling Urethral Catheter Cath placed during this visit: no Assessment and Plan - Assessment (1) Ampulla of Vater mass Code(s): K83.9 - Disease of biliary tract, unspecified Status: Acute - Attending Attestation The exam, history, and the medical decision-making described in the above note were completed with the assistance of the mid-level provider. I reviewed and agree with the findings presented. I attest that I had a [id number] encounter with the patient on the same day, and personally performed and documented my assessment and findings in the medical record. s/p Whipple, stable keep EMMA and antibiotics for now continue OOB and PT encourage PO intake appreciate hr generalist help
[2017-10-25] MEDS: Potassium Chlor 20 mEq Premix 20 MEQ/100 ML PIGGYBACK IV.SIG PRN ×2 (10:23→12:39)
--- NOTE | 2017-10-25 13:31 | P.PNCC ---
Subjective Subjective Remarks/Hospital Course: This is a 62-year-old female. Date of admission 10/18/2017. Date of consultation 10/18/2017. Past medical history includes fibromyalgia, bipolar disorder, depression/anxiety, dyslipidemia, prior history of tobaccoism 20 pack years quit 2 years ago, allergic rhinitis, osteoporosis/osteoarthritis, chronic constipation, hypothyroidism, insomnia, diabetes mellitus, chronic benzodiazepine use, oropharyngeal dysphagia, gastroesophageal reflux disease and right popliteal lipoma. Patient was originally diagnosed with an ampullary tumor 2008. Was followed by Dr. Frazier. Patient had recurrent dilatations. Patient had a ampullectomy procedure 05/2016. Due to her underlying recurrent stricture and suspicion of ampullary cancer, patient underwent another Whipple procedure today 10/19/[address] Beaulieu Received 4800 cc crystalloid. EBL 100 cc. 500 cc urine output. Patient received 400 mg of ciprofloxacin in surgery. She currently has a new GJ tube. She has 2 JPs with serosanguineous drainage in the right upper quadrant/ midline. There is a abhilash drain in place. Dressing is clean dry and intact. She is currently arousable on 3 L nasal cannula in no acute distress. A hydromorphone [employer] TECHNICIAN is about to be initiated. Preoperative labs revealed a microcytosis only. She also slightly elevated blood sugar for diet-controlled diabetes. SUBJ 10/19: Patient is lying completely portably in bed no acute distress. Pain adequately controlled with GRAPH[employer]S TECHNICIAN. Postop note reviewed s/p pancreaticoduodenectomy (Whipple procedure) with Mindi-en-Y reconstruction. 2. Gastrostomy, Jejunostomy tube placement. Extensive lysis of adhesions, Open omentectomy. 10/20: Lying in bed not in any acute distress. WBC count is elevated at 17.6 today probably postop stress related. Potassium 3.3 getting replaced. No fever or any other evidence of infection, no evidence of leak 10/21: Clinically stable, WBC improving from 17.6 to 14.2. Serosanguineous drainage from right EMMA drain. Intermittently confused in a.m. most likely related to Dilaudid and Ativan. Dr. Jim has reduced Ativan dosage 10/22: One of the EMMA drains (#1) showing greenish brown output today, was serosanguineous yesterday. I discussed with Dr. Rodarte about possibility of leak, he will discuss Dr. Beaulieu. Continue strict n.p.o. continue broad- spectrum antibiotics. WBC improving, no fever 14.2 to 11.9 today. CMP normal except K 3.1, getting replaced. 10/23: Breathing comfortably while supine. Leukocytosis decreasing. Abdominal drain contents minimal. 10/24: Remains well hydrated and well perfused. Less pain today. T-max 100.6, otherwise afebrile. 10/25: Alert, cooperative. Electrolyte replacement continues as necessary. EMMA drainage minimal. Breathing comfortably. Objective Vital Signs / I&O: Vital Signs 10/24/17 13:47 10/24/17 15:33 10/24/17 16:00 Temperature 98.9 F Pulse Rate 78 77 108 H Respiratory Rate 18 24 Blood Pressure 128/58 L Pulse Oximetry 100 10/24/17 17:36 10/24/17 20:10 10/24/17 20:14 Temperature 99.1 F Pulse Rate 87 87 Respiratory Rate 14 Blood Pressure 93/51 L Pulse Oximetry 93 L 99 10/24/17 22:05 10/25/17 00:00 10/25/17 02:00 Temperature 98.7 F Pulse Rate 80 89 80 Respiratory Rate 17 Blood Pressure 108/54 L Pulse Oximetry 92 L 10/25/17 04:00 10/25/17 04:10 10/25/17 06:00 Temperature 98.5 F Pulse Rate 79 79 Respiratory Rate 15 Blood Pressure 100/54 L Pulse Oximetry 92 L 92 L 10/25/17 08:00 10/25/17 10:00 10/25/17 12:30 Temperature 97.9 F 98.3 F Pulse Rate 78 78 72 Respiratory Rate 18 24 Blood Pressure 105/51 L 117/56 L Pulse Oximetry 95 96 Intake & Output 10/24/17 10/25/17 10/25/17 18:59 06:59 18:59 Intake Total 1420 / 1420 1880 / 1880 100 / 100 Output Total 1320 / 1320 330 / 330 200 / 200 Balance 100 / 100 1550 / 1550 -100 / -100 Weight 104.6 kg Intake: IV 700 / 700 1400 / 1400 100 / 100 NS Inj 1,000 ML @ 100 mls/hr IV 1000 / 1000 .CONT .Q10H [facility] Rx#:[id number] Azactam Inj 2 GM In NS Inj 100 200 / 200 200 / 200 ML @ 200 mls/hr IV.SIG Q6H [facility] Rx#:[id number] KCl 20 mEq Premix Inj 20 meq In 300 / 300 100 / 100 100 ml @ 50 mls/hr IV.SIG Q2H [facility] Rx#:[id number] Flagyl 500 MG Inj 100 ML @ 100 200 / 200 200 / 200 mls/hr IV.SIG Q8H [facility] Rx#: [id number] Oral 720 / 720 480 / 480 Output: Urine 200 / 200 200 / 200 Estimated Blood Loss 100 / 100 Urine Amount (Catheter) 750 / 750 Indwelling Urethral Catheter 750 / 750 Gastric Drainage 200 / 200 Gastrostomy Tube (PEG) 0 / 0 Left Upper Quadrant Jejunostomy 200 / 200 Tube Wound Drainage 370 / 370 30 / 30 # 1 EMMA Drain 20 / 20 #2 EMMA Drain 120 / 120 10 / 10 #3 J Tube Drain (Red) 250 / 250 Other: # Voids 5 # Bowel Movements 0 Result Diagrams: 10/25/17 05:30 10/25/17 05:30 Objective Remarks: Constitutional: no acute distress, obese. Lying in bed, no acute complaints HEENT: normocephalic, atraumatic. EOMI, JIM. Mucous membranes moist. Neck Exam: Supple, trachea midline. Airway widely patent, no obstructive noises. Respiratory: Clear to auscultation bilaterally. No rhonchi, wheezes, crackles Cardiovascular: S1, S2. No murmur, gallop, rubs. No JVD. GI: soft, surgical scars. Mild tenderness. Midline dressing C/D/I. #1 EMMA with greenish output. #2 EMMA with sero-sanguinous output, G tube clamped and J tube to gravity Extremities: Warm, well-perfused. Skin Exam: intact, dry, warm. Neurological Exam: Oriented to person and place. Conversant. Assessment and Plan - Assessment and Plan Plan: Neuro/Psych: Postop pain control Depression/anxiety Bipolar disorder NOS Fibromyalgia Chronic benzodiazepine use Currently on hydromorphone GR[employer]IC [employer]S TECHNICIAN per general surgery, Zofran for nausea vomiting. Ativan IV PRN for anxiety Patient's home medications include lorazepam 2 mg 4 times daily, hydroxyzine 25 mg 4 times daily. These have been held postoperatively Holding Diphendydramine 12.5 mg 3 times daily/home medication Receiving scheduled [facility] 1 g IV every 6 hours per general surgery Holding zolpidem 10 mg at night as needed insomnia. Holding loratadine 10 mg daily, cetirizine 10 mg daily for allergic rhinitis. CV: History of dyslipidemia Holding omega-3 fish oil. 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 Gastrostomy , Jejunostomy tube placement. Extensive lysis of adhesions, Open omentectomy. Intraabdominal drain #1 has new greenish brown, minimal output, Discussed with Dr. Rodarte about concern for leak. Drain #2 with serosanguineous output Strict NPO, broad spectrum antibiotics as below Currently on pantoprazole 40 mg IV daily./Home medication omeprazole 20 mg daily for gastroesophageal reflux disease Holding cholestyramine 4 g 3 times daily and docusate sodium 100 mg twice daily for constipation. Endo: Diabetes mellitus type 2/diet-controlled Hypothyroidism Sliding scale insulin with aspart insulin Accu-Cheks every 6 hours to maintain euglycemia/low regimen Patient is on levothyroxine 75 mcg through 10/21? Then on 150 mcg daily?. Medicine reconciliation. Currently holding. Might need IV while n.p.o. TSH suppressed will hold Synthroid for now Renal: Hypokalemia Powell catheter has been placed for accurate I's and O's in a postoperative patient Preoperative creatinine within normal limits Monitor urine output. Accurate I's and O's BMP, magnesium phosphorus in a.m. 10/19 Replace electrolytes as clinically indicated per ICU electrolyte protocol Persistent hypokalemia, continue to replace. Heme: Microcytosis History of ampullary tumor since 2008 Monitor CBC daily. Follow trend Leukocytosis probably reactive and stress related, and trending down ID: Was on ciprofloxacin 400 mg IV twice daily, fluconazole 40 mg daily and metronidazole 500 mg every 8 hours per general surgery. Now only on Diflucan Add Azactam and Flagyl, and IV Vanc x1 MSK: Osteoporosis/osteoarthritis Elevated BMI History of right popliteal lipoma status post excision PT evaluate and treat Holding ergocalciferol 50,000 units q. Monday and cholecalciferol 5000 units daily. Access -Right IJ CVL placed in OR 10/18 -Right radial arterial line placed in OR 10/18-DCd Prophylaxis -GI -pantoprazole -DVT -SCD/pharmacological prophylaxis when okay with Dr. Beaulieu Overall impression: Comfortable respiratory pattern and stable normal hemodynamics status post major abdominal surgery. Transfer to floor.
[2017-10-25] MEDS: Pantoprazole Inj 40 MG Vial IV.PUSH SCH (19:35)
[2017-10-26] MEDS: Aztreonam Inj 2 GM in Sodium Chloride 0.9% Inj 100 ML IV.SIG SCH ×4 (02:16→22:10)
[2017-10-26] MEDS: Heparin - SQ 10,000 UNITS/ML Vial SQ SCH ×3 (06:05→22:16)
[2017-10-26] MEDS: Sod Chloride 0.9% Inj 1,000 ML IV.CONT SCH ×5 (06:06→22:14)
[2017-10-26 07:14] LABS: Anion Gap 12 meq/L (5-15); Blood Urea Nitrogen 3 mg/dL (7-18); Calcium 7.8 mg/dL (8.5-10.1); Carbon Dioxide 26.5 meq/L (21.0-32.0); Chloride 100 meq/L (98-107); Glomerular Filtration Rate Greater Than 89 mL/min (>89); Glucose,Random 113 mg/dL (74-106); Potassium 3.1 meq/L (3.5-5.1); Sodium 138 meq/L (136-145)
[2017-10-26] MEDS: SYNTHROID 150 MCG PO SCH (10:03)
[2017-10-26] MEDS: Potassium Chlor 20 mEq Premix 20 MEQ/100 ML PIGGYBACK IV.SIG SCH ×2 (12:13→18:09)
--- NOTE | 2017-10-26 14:18 | P.PNIM ---
Subjective Interval history: Patient reports she had an allergic reaction to medication overnight. Discussed with RN. She became agitated and erratic after taking IV Ativan. Patient reports she has been taking p.o. Ativan for years. Otherwise she has no new complaints. Physical Exam Vital signs: Vital Signs 10/25/17 16:00 10/25/17 20:00 10/26/17 00:00 Temperature 98.6 F 98.2 F 99.2 F Pulse Rate 81 84 91 H Respiratory Rate 20 22 22 Blood Pressure 135/63 134/76 144/67 H Pulse Oximetry 95 94 L 96 10/26/17 04:00 10/26/17 08:00 10/26/17 12:00 Temperature 98.2 F 98.0 F 98.0 F Pulse Rate 94 H 82 78 Respiratory Rate 22 18 16 Blood Pressure 134/65 133/67 139/67 Pulse Oximetry 95 95 95 Intake & Output 10/25/17 10/26/17 10/26/17 18:59 06:59 18:59 Intake Total 1100 / 1100 720 / 720 1100 / 1100 Output Total 1180 / 1180 160 / 160 Balance -80 / -80 560 / 560 1100 / 1100 Weight 104.6 kg Intake: IV 1100 / 1100 500 / 500 1100 / 1100 NS Inj 1,000 ML @ 100 mls/hr IV 1000 / 1000 1000 / 1000 .CONT .Q10H [facility] Rx#:[id number] Azactam Inj 2 GM In NS Inj 100 300 / 300 ML @ 200 mls/hr IV.SIG Q6H [facility] Rx#:[id number] KCl 20 mEq Premix Inj 20 meq In 100 / 100 100 ml @ 50 mls/hr IV.SIG Q2H PRN Rx#:[id number] Flagyl 500 MG Inj 100 ML @ 100 200 / 200 100 / 100 mls/hr IV.SIG Q8H [facility] Rx#: [id number] Oral 220 / 220 Output: Urine 750 / 750 Wound Drainage 430 / 430 160 / 160 # 1 EMMA Drain 20 / 20 10 / 10 #2 EMMA Drain 10 / 10 0 / 0 #3 J Tube Drain (Red) 250 / 250 #4 G Tube Drain (Clear) 150 / 150 Medial Abdomen 150 / 150 Other: # Voids 4 Narrative: GENERAL: Obese and frail female in no apparent distress. CARDIOVASCULAR: Normal rate and regular rhythm without murmurs, gallops, or rubs. RESPIRATORY: Good respiratory efforts. Breath sounds equal and clear to auscultation bilaterally. GASTROINTESTINAL: Abdomen soft obese, there are 2 drains on the right. 1 of them is draining a caruso fluid that is thick, the other one is draining serosanguineous fluid. The drain on the left draining bilious material. Midline incision noted and is clean. NEURO: Alert & Oriented x4 to person, place, time, situation. Moves all ext x4 PSYCH: Easily irritated. - Urinary Catheter Management Indwelling Urethral Catheter Cath placed during this visit: yes, but has since been removed by the nurse Urethral indwelling: Yes Reason for continuing: Hourly intake/output Insertion date: 10/18/17 Insertion time: 09:00 Removal date: 10/24/17 Removal time: 15:00 Results - Labs CBC & Chem 7: 10/25/17 05:30 10/26/17 06:10 Laboratory Results - last 24 hr 10/25/17 10/26/17 10/26/17 17:46 01:38 06:10 Sodium 138 Potassium 3.1 L Chloride 100 Carbon Dioxide 26.5 Anion Gap 12 BUN 3 L Creatinine 0.35 L Estimated GFR Greater than 89 POC Glucose 123 H 149 H Random Glucose 113 H Calcium 7.8 L Magnesium 10/26/17 10/26/17 06:10 06:12 Sodium Potassium Chloride Carbon Dioxide Anion Gap BUN Creatinine Estimated GFR POC Glucose 125 H Random Glucose Calcium Magnesium 2.0 Assessment and Plan - Plan 62-year-old female admitted for Whipple procedure (pancreaticoduodenectomy) with Mindi-en-Y reconstruction. Gastrostomy, Jejunostomy tube placement. Extensive lysis of adhesions, Open omentectomy. 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 Gastrostomy , Jejunostomy tube placement. Extensive lysis of adhesions, Open omentectomy. Intraabdominal drain #1 has greyish drainage, thick. Drain #2 with serosanguineous output Gen surgery following. Strict NPO, broad spectrum antibiotics with Azactam, Diflucan, Flagyl Currently on pantoprazole 40 mg IV daily. Holding cholestyramine 4 g 3 times daily and docusate sodium 100 mg twice daily for constipation. Postop pain management per Gen surgery Depression/anxiety Bipolar disorder NOS Fibromyalgia Chronic benzodiazepine use Resume home dose oral Ativan and Atarax. Monitor neuro status. Tobaccoism Nasal cannula to maintain saturations greater than or equal to 92% Incentive spirometry while awake As needed albuterol therapy every 2 hours Diabetes mellitus type 2/diet-controlled Hypothyroidism Sliding scale insulin with aspart insulin Accu-Cheks every 6 hours to maintain euglycemia/low regimen On Levothyroxine. Home dose. Patient can take his own medication Hypokalemia Replace and monitor Check mag Prophylaxis -GI -pantoprazole -DVT -Heparin
--- NOTE | 2017-10-26 14:21 | P.PNGS ---
<Rachel Flores - Last Filed: 10/26/17 14:18> Subjective Interval history: UP to chair Had rough night last night Wants a wagner vilma Physical Exam Vital signs: Vital Signs 10/25/17 16:00 10/25/17 20:00 10/26/17 00:00 Temperature 98.6 F 98.2 F 99.2 F Pulse Rate 81 84 91 H Respiratory Rate 20 22 22 Blood Pressure 135/63 134/76 144/67 H Pulse Oximetry 95 94 L 96 10/26/17 04:00 10/26/17 08:00 10/26/17 12:00 Temperature 98.2 F 98.0 F 98.0 F Pulse Rate 94 H 82 78 Respiratory Rate 22 18 16 Blood Pressure 134/65 133/67 139/67 Pulse Oximetry 95 95 95 Intake & Output 10/25/17 10/26/17 10/26/17 18:59 06:59 18:59 Intake Total 1100 / 1100 720 / 720 1100 / 1100 Output Total 1180 / 1180 160 / 160 Balance -80 / -80 560 / 560 1100 / 1100 Weight 104.6 kg Intake: IV 1100 / 1100 500 / 500 1100 / 1100 NS Inj 1,000 ML @ 100 mls/hr IV 1000 / 1000 1000 / 1000 .CONT .Q10H [facility] Rx#:[id number] Azactam Inj 2 GM In NS Inj 100 300 / 300 ML @ 200 mls/hr IV.SIG Q6H [facility] Rx#:[id number] KCl 20 mEq Premix Inj 20 meq In 100 / 100 100 ml @ 50 mls/hr IV.SIG Q2H PRN Rx#:[id number] Flagyl 500 MG Inj 100 ML @ 100 200 / 200 100 / 100 mls/hr IV.SIG Q8H [facility] Rx#: [id number] Oral 220 / 220 Output: Urine 750 / 750 Wound Drainage 430 / 430 160 / 160 # 1 EMMA Drain 20 / 20 10 / 10 #2 EMMA Drain 10 / 10 0 / 0 #3 J Tube Drain (Red) 250 / 250 #4 G Tube Drain (Clear) 150 / 150 Medial Abdomen 150 / 150 Other: # Voids 4 Narrative: Alert and awake Cardio: RRR Resp: CTAB Abd: ALEJANDRA removed; G tube clamped; J tube to gravity bag JP1 with thick reyez output; JP2 with SS thin drainage - Urinary Catheter Management Indwelling Urethral Catheter Cath placed during this visit: yes, but has since been removed by the nurse Urethral indwelling: Yes Reason for continuing: Hourly intake/output Insertion date: 10/18/17 Insertion time: 09:00 Removal date: 10/24/17 Removal time: 15:00 Assessment and Plan - Assessment (1) Ampulla of Vater mass Code(s): K83.9 - Disease of biliary tract, unspecified Status: Acute - Plan 62 year old female POD7 Whipple -Check labs tomorrow -Check cdiff -Place EMMA drains to gravity bag (either Powell or bilious drainage bags) -Continue to clamp G tube -Continue J tube to gravity -Continue full liquids -Continue Flagyl/Azactam -PRN Ofirmiv for pain -Patient may take home supply of Synthroid as prescribed by Beronica Huntley MD -Heparin for DVT proph -OOB; PT following -Discussed with MIKE Freeman <Bruno Beaulieu - Last Filed: 11/07/17 10:51> Physical Exam - Urinary Catheter Management Indwelling Urethral Catheter Cath placed during this visit: no Assessment and Plan - Assessment (1) Ampulla of Vater mass Code(s): K83.9 - Disease of biliary tract, unspecified Status: Acute - Attending Attestation The exam, history, and the medical decision-making described in the above note were completed with the assistance of the mid-level provider. I reviewed and agree with the findings presented. I attest that I had a [id number] encounter with the patient on the same day, and personally performed and documented my assessment and findings in the medical record. s/p Whipple, stable keep EMMA and antibiotics, decreased output continue OOB and PT encourage diet appreciate go go dancer help
[2017-10-26] MEDS ORDERED: LORazepam 1 MG Tablet PO PRN (14:44)
--- NOTE | 2017-10-26 17:43 | US ---
EXAM DATE: 10/26/2017 5:40 PM EDT AGE/SEX: 62 years / Female INDICATIONS: Right arm swelling. CLINICAL DATA: This is the patient's initial encounter. Patient reports that signs and symptoms have been present for 4 - 6 days and indicates a pain score of 6/10. MEDICAL/SURGICAL HISTORY: Gastroesophageal reflux disease. Diabetes. Pancreatitis. Hyperlipide merrill. Anesthesia reaction. Thyroid disease. Fibromyalgia. Bursitis bilateral shoulders. Abdominal pain . Bipolar disorder. Ampullary tumor. Thyroidectomy. Hysterectomy. Left shoulder surgery. Carpal charla narendra release. Whipple procedure. COMPARISON: No prior exams available for comparison. FINDINGS: The vessels are compressible and augmentation response is documented. No filling defects a re seen. The flow is phasic with respiration. Other: The right jugular vein, radial and ulnar veins were difficult to visualize due to IV and PICC line placements. CONCLUSION: 1. No evidence of deep venous thrombosis. Electronically signed by: Yo Robles MD 10/26/2017 5:42 PM EDT
[2017-10-26] MEDS: Insulin NovoLOG Aspart Correctional Sugar Inj SQ SCH ×2 (18:02→22:21)
[2017-10-26] MEDS: Pantoprazole Inj 40 MG Vial IV.PUSH SCH (18:10)
[2017-10-27] MEDS: Insulin NovoLOG Aspart Correctional Sugar Inj SQ SCH ×2 (02:00→06:55)
[2017-10-27] MEDS: Aztreonam Inj 2 GM in Sodium Chloride 0.9% Inj 100 ML IV.SIG SCH ×2 (02:27→09:41)
[2017-10-27] MEDS: Acetaminophen 325 MG Tablet PO PRN (02:32)
[2017-10-27] MEDS: Heparin - SQ 10,000 UNITS/ML Vial SQ SCH ×3 (05:31→22:30)
[2017-10-27] MEDS: Ketorolac Inj 30 MG/ML (IVP) Vial IV.PUSH PRN ×2 (05:32→20:40)
[2017-10-27 06:18] LABS: Hematocrit 28.8 % (35.0-46.0); Hemoglobin 9.6 gm/dL (11.6-15.3); Mean Corpuscular HGB Conc 33.1 % (32.0-36.0); Mean Corpuscular Hemoglobin 25.9 pg (27.0-34.0); Mean Corpuscular Volume 78.3 fL (80.0-100.0); Mean Platelet Volume 7.7 fL (7.0-11.0); Platelet Count 447 th/mm3 (150-450); Red Blood Count 3.68 mil/mm3 (4.00-5.30); Red Cell Distribution Width 14.8 % (11.6-17.2); White Blood Count 11.9 th/mm3 (4.0-11.0)
[2017-10-27 06:36] LABS: Anion Gap 12 meq/L (5-15); Blood Urea Nitrogen 4 mg/dL (7-18); Calcium 7.9 mg/dL (8.5-10.1); Carbon Dioxide 23.9 meq/L (21.0-32.0); Chloride 102 meq/L (98-107); Glomerular Filtration Rate Greater Than 89 mL/min (>89); Glucose,Random 104 mg/dL (74-106); Potassium 3.3 meq/L (3.5-5.1); Sodium 138 meq/L (136-145)
[2017-10-27] MEDS: SYNTHROID 150 MCG PO SCH (09:35)
--- NOTE | 2017-10-27 11:29 | P.DCO ---
- Home Health Nursing Order: Wound care and dressing changes Instructions: S/p Whipple procedure; continue EMMA care; continued G/J tube care - Certification I have seen patient Aby Yadav on 10/27/17. My clinical findings support the need for the requested home health care services because: Deconditioned with increased weakness I certify that my clinical findings support that this patient is homebound because: Post-op weakness
--- NOTE | 2017-10-27 11:46 | P.PNGS ---
<SandraRachel - Last Filed: 10/27/17 11:37> Subjective Interval history: Up to chair and Mrs. Yadav upset; they want Tara RN at [facility] updated about care Asking about going home soon Physical Exam Vital signs: Vital Signs 10/26/17 12:00 10/26/17 16:00 10/26/17 20:00 Temperature 98.0 F 97.8 F 98.4 F Pulse Rate 78 74 76 Respiratory Rate 16 18 20 Blood Pressure 139/67 141/67 H 141/65 H Pulse Oximetry 95 97 97 10/27/17 00:00 10/27/17 04:00 10/27/17 07:59 Temperature 98.2 F 98.4 F 97.8 F Pulse Rate 79 70 62 Respiratory Rate 20 20 12 Blood Pressure 137/65 146/68 H 140/63 Pulse Oximetry 96 96 97 Intake & Output 10/26/17 10/27/17 10/27/17 18:59 06:59 18:59 Intake Total 1400 / 1400 1640 / 1640 Output Total 320 / 320 65 / 65 Balance 1080 / 1079 1575 / 1575 Intake: IV 1400 / 1400 1400 / 1400 NS Inj 1,000 ML @ 100 mls/hr IV 1000 / 1000 1000 / 1000 .CONT .Q10H [facility] Rx#:[id number] Azactam Inj 2 GM In NS Inj 100 200 / 200 200 / 200 ML @ 200 mls/hr IV.SIG Q6H [facility] Rx#:[id number] KCl 20 mEq Premix Inj 20 meq In 0 / 0 100 / 100 100 ml @ 50 mls/hr IV.SIG Q2H [facility] Rx#:[id number] Flagyl 500 MG Inj 100 ML @ 100 200 / 200 100 / 100 mls/hr IV.SIG Q8H [facility] Rx#: [id number] Oral 240 / 240 Output: Wound Drainage 320 / 320 65 / 65 # 1 EMMA Drain 180 / 180 50 / 50 #2 EMMA Drain 10 / 10 #3 J Tube Drain (Red) 130 / 130 15 / 15 Other: # Voids 5 1 Narrative: Alert and awake up to chair Cardio: RRR Resp: CTAB Abd: soft ; midline incision healing; G tube capped; J tube to gravity bag; JP1 with thick caruso drainage; JP2 with SS drainage - Urinary Catheter Management Indwelling Urethral Catheter Cath placed during this visit: yes, but has since been removed by the nurse Urethral indwelling: Yes Reason for continuing: Hourly intake/output Insertion date: 10/18/17 Insertion time: 09:00 Removal date: 10/24/17 Removal time: 15:00 Assessment and Plan - Assessment (1) Ampulla of Vater mass Code(s): K83.9 - Disease of biliary tract, unspecified Status: Acute - Plan 62 year old female POD7 Whipple -CBC trending down -Cdiff negative -Place EMMA drains to gravity bag (bilious drainage bags) -Continue to clamp G tube -Continue J tube to gravity -Continue full liquids -Continue Flagyl/Azactam -PRN Ofirmiv for pain -Patient may take home supply of Synthroid as prescribed by Beronica Huntley MD -Ativan PO PRN -Heparin for DVT proph -OOB; PT following -Discussed with MIKE Eldridge and charge nurse Namrata -I called bed placement and spoke with Cyndi--- She is on the priority list to move to [facility] <Bruon Beaulieu - Last Filed: 11/07/17 10:52> Physical Exam - Urinary Catheter Management Indwelling Urethral Catheter Cath placed during this visit: no Assessment and Plan - Assessment (1) Ampulla of Vater mass Code(s): K83.9 - Disease of biliary tract, unspecified Status: Acute - Attending Attestation The exam, history, and the medical decision-making described in the above note were completed with the assistance of the mid-level provider. I reviewed and agree with the findings presented. I attest that I had a [id number] encounter with the patient on the same day, and personally performed and documented my assessment and findings in the medical record. s/p Whipple, stable keep EMMA and antibiotics, possibly small leak continue OOB and PT eating better
[2017-10-27] MEDS ORDERED: Potassium Chloride 25 MEQ Effervescent Tablet PO ONE (18:34)
--- NOTE | 2017-10-27 18:36 | P.PNIM ---
Subjective Interval history: The patient was waiting to move upstairs to her room. She was complaining of some back pain from the bed. She had no other acute complaints. Discussed with nursing who stated that the patient has been acting confused and making strange statements throughout the day. Physical Exam Vital signs: Vital Signs 10/26/17 20:00 10/27/17 00:00 10/27/17 04:00 Temperature 98.4 F 98.2 F 98.4 F Pulse Rate 76 79 70 Respiratory Rate 20 20 20 Blood Pressure 141/65 H 137/65 146/68 H Pulse Oximetry 97 96 96 10/27/17 07:59 10/27/17 12:00 10/27/17 16:00 Temperature 97.8 F 98.0 F 98.1 F Pulse Rate 62 66 74 Respiratory Rate 12 14 14 Blood Pressure 140/63 143/67 H 148/68 H Pulse Oximetry 97 98 97 Intake & Output 10/26/17 10/27/17 10/27/17 18:59 06:59 18:59 Intake Total 1400 / 1400 1740 / 1740 Output Total 320 / 320 65 / 65 Balance 1080 / 1080 1675 / 1675 Intake: IV 1400 / 1400 1500 / 1500 NS Inj 1,000 ML @ 100 mls/hr IV 1000 / 1000 1000 / 1000 .CONT .Q10H [facility] Rx#:[id number] Azactam Inj 2 GM In NS Inj 100 200 / 200 200 / 200 ML @ 200 mls/hr IV.SIG Q6H [facility] Rx#:[id number] KCl 20 mEq Premix Inj 20 meq In 0 / 0 100 / 100 100 ml @ 50 mls/hr IV.SIG Q2H [facility] Rx#:[id number] Flagyl 500 MG Inj 100 ML @ 100 200 / 200 200 / 200 mls/hr IV.SIG Q8H [facility] Rx#: [id number] Oral 240 / 240 Output: Wound Drainage 320 / 320 65 / 65 # 1 EMMA Drain 180 / 180 50 / 50 #2 EMMA Drain 10 / 10 #3 J Tube Drain (Red) 130 / 130 15 / 15 Other: # Voids 5 1 Narrative: GENERAL: No apparent distress. CARDIOVASCULAR: Normal rate and regular rhythm without murmurs, gallops, or rubs. RESPIRATORY: Good respiratory efforts. Breath sounds equal and clear to auscultation bilaterally. GASTROINTESTINAL: Abdomen soft obese, there are 2 drains on the right, 1 on the left. Midline incision noted and is clean. NEURO: Alert & Oriented. Moves all ext x4 PSYCH: Calm. - Urinary Catheter Management Indwelling Urethral Catheter Cath placed during this visit: yes, but has since been removed by the nurse Urethral indwelling: Yes Reason for continuing: Hourly intake/output Insertion date: 10/18/17 Insertion time: 09:00 Removal date: 10/24/17 Removal time: 15:00 Results - Labs CBC & Chem 7: 10/27/17 04:30 10/27/17 04:30 Laboratory Results - last 24 hr 10/26/17 10/26/17 10/27/17 18:49 22:21 04:30 WBC RBC Hgb Hct MCV MCH MCHC RDW Plt Count MPV Sodium 138 Potassium 3.3 L Chloride 102 Carbon Dioxide 23.9 Anion Gap 12 BUN 4 L Creatinine 0.37 L Estimated GFR Greater than 89 POC Glucose 111 H Random Glucose 104 Calcium 7.9 L Stl C.difficile Tox PCR Negative St C. diff Tox Epid 027 Negative 10/27/17 10/27/17 04:30 11:53 WBC 11.9 H RBC 3.68 L Hgb 9.6 L Hct 28.8 L MCV 78.3 L MCH 25.9 L MCHC 33.1 RDW 14.8 Plt Count 447 MPV 7.7 Sodium Potassium Chloride Carbon Dioxide Anion Gap BUN Creatinine Estimated GFR POC Glucose 108 Random Glucose Calcium Stl C.difficile Tox PCR St C. diff Tox Epid 027 - Imaging Impressions Venous Doppler Study 10/26/17 00:00 CONCLUSION: 1. No evidence of deep venous thrombosis. Assessment and Plan - Plan 62-year-old female admitted for Whipple procedure (pancreaticoduodenectomy) with Mindi-en-Y reconstruction. Gastrostomy, Jejunostomy tube placement. Extensive lysis of adhesions, Open omentectomy. 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 Gastrostomy , Jejunostomy tube placement. Extensive lysis of adhesions, Open omentectomy. Intraabdominal drain #1 has greyish drainage, thick. Drain #2 with serosanguineous output Gen surgery following. Strict NPO, broad spectrum antibiotics with Azactam, Diflucan, Flagyl Currently on pantoprazole 40 mg IV daily. Holding cholestyramine 4 g 3 times daily and docusate sodium 100 mg twice daily for constipation. Postop pain management per Gen surgery Depression/anxiety Bipolar disorder NOS Fibromyalgia Chronic benzodiazepine use Resume home dose oral Ativan and Atarax. Monitor neuro status. Tobaccoism Nasal cannula to maintain saturations greater than or equal to 92% Incentive spirometry while awake As needed albuterol therapy every 2 hours Diabetes mellitus type 2/diet-controlled Hypothyroidism Sliding scale insulin with aspart insulin Accu-Cheks every 6 hours to maintain euglycemia/low regimen On Levothyroxine. Home dose. Patient can take own medication Hypokalemia Replace and monitor Confusion Noted by nursing. May be delirium. - monitor mental status and avoid sedating meds. Prophylaxis -GI -pantoprazole -DVT -Heparin
[2017-10-28] MEDS: Insulin NovoLOG Aspart Correctional Sugar Inj SQ SCH ×4 (04:33→18:32)
[2017-10-28] MEDS: Heparin - SQ 10,000 UNITS/ML Vial SQ SCH ×3 (06:08→21:47)
[2017-10-28] MEDS: SYNTHROID 150 MCG PO SCH (06:08)
[2017-10-28 08:12] LABS: Baso # (Auto) 0.1 th/mm3 (0.0-0.2); Baso % (Auto) 0.6 % (0.0-2.0); Eos # (Auto) 0.3 th/mm3 (0.0-0.4); Eos % (Auto) 2.9 % (0.0-4.0); Hematocrit 32.9 % (35.0-46.0); Hemoglobin 10.7 gm/dL (11.6-15.3); Lymph # (Auto) 2.4 th/mm3 (1.0-4.8); Lymph % (Auto) 21.4 % (9.0-44.0); Mean Corpuscular HGB Conc 32.6 % (32.0-36.0); Mean Corpuscular Hemoglobin 25.7 pg (27.0-34.0); Mean Corpuscular Volume 78.8 fL (80.0-100.0); Mean Platelet Volume 7.8 fL (7.0-11.0); Mono # (Auto) 0.5 th/mm3 (0.0-0.9); Mono % (Auto) 4.3 % (0.0-8.0); Neut # (Auto) 7.9 th/mm3 (1.8-7.7); Neut % (Auto) 70.8 % (16.0-70.0); Platelet Count 477 th/mm3 (150-450); Red Blood Count 4.17 mil/mm3 (4.00-5.30); Red Cell Distribution Width 15.1 % (11.6-17.2); White Blood Count 11.1 th/mm3 (4.0-11.0)
--- NOTE | 2017-10-28 08:22 | P.PNGS ---
Subjective Patient reports: no new complaints, feels better Physical Exam Vital signs: Vital Signs 10/27/17 12:00 10/27/17 16:00 10/27/17 20:44 Temperature 98.0 F 98.1 F 97.0 F L Pulse Rate 66 74 71 Respiratory Rate 14 14 18 Blood Pressure 143/67 H 148/68 H 164/70 H Pulse Oximetry 98 97 96 10/28/17 00:28 10/28/17 04:56 Temperature 97.8 F 97.1 F L Pulse Rate 77 65 Respiratory Rate 20 18 Blood Pressure 115/59 L 133/63 Pulse Oximetry 96 98 Intake & Output 10/27/17 10/28/17 10/28/17 18:59 06:59 18:59 Intake Total 4180 / 4180 460 / 460 Output Total 1575 / 1575 115 / 115 Balance 2605 / 2605 345 / 345 Weight 104.6 kg Intake: IV 100 / 100 100 / 100 Flagyl 500 MG Inj 100 ML @ 100 100 / 100 100 / 100 mls/hr IV.SIG Q8H [facility] Rx#: [id number] Oral 240 / 240 360 / 360 Tube Feeding 20 / 20 Tube Irrigant 20 / 20 Anesthesia Amount 3800 / 3800 Output: Urine 300 / 300 Estimated Blood Loss 100 / 100 Urine Amount (Catheter) 750 / 750 Indwelling Urethral Catheter 750 / 750 Gastric Drainage 200 / 200 Gastrostomy Tube (PEG) 0 / 0 Left Upper Quadrant Jejunostomy 200 / 200 Tube Wound Drainage 225 / 225 115 / 115 # 1 EMMA Drain 50 / 50 15 / 15 #2 EMMA Drain 10 / 10 100 / 100 #3 J Tube Drain (Red) 15 / 15 Medial Abdomen 150 / 150 Other: # Voids 1 3 # Bowel Movements 0 - Constitutional no acute distress - Routine Abdominal Exam Present: soft, normoactive bowel sounds Comments: J-tube out, EMMA drains with minimal cloudy fluid - Urinary Catheter Management Indwelling Urethral Catheter Cath placed during this visit: yes, but has since been removed by the nurse Urethral indwelling: Yes Reason for continuing: Hourly intake/output Insertion date: 10/18/17 Insertion time: 09:00 Removal date: 10/24/17 Removal time: 15:00 Assessment and Plan - Assessment (1) Ampulla of Vater mass Code(s): K83.9 - Disease of biliary tract, unspecified Status: Acute - Plan 62yo female s/p Jem. continue drains and antibiotics for small controlled leak. advance diet. continue PT - Attending Attestation The exam, history, and the medical decision-making described in the above note were completed with the assistance of the mid-level provider. I reviewed and agree with the findings presented. I attest that I had a [id number] encounter with the patient on the same day, and personally performed and documented my assessment and findings in the medical record. s/p Jem, stable DC with EMMA OOB well DC home soon
[2017-10-28 08:41] LABS: Anion Gap 11 meq/L (5-15); Blood Urea Nitrogen 5 mg/dL (7-18); Calcium 8.1 mg/dL (8.5-10.1); Carbon Dioxide 26.6 meq/L (21.0-32.0); Chloride 102 meq/L (98-107); Glomerular Filtration Rate Greater Than 89 mL/min (>89); Glucose,Random 114 mg/dL (74-106); Potassium 3.2 meq/L (3.5-5.1); Sodium 140 meq/L (136-145)
[2017-10-28 09:33] LABS: Lymphocytes 17 % (9-44); Monocytes 5 % (0-8); Myelocytes 1 % (0-0)
[2017-10-28 09:34] LABS: Platelet Morphology Normal (Normal)
[2017-10-28] MEDS: Aztreonam Inj 2 GM in Sodium Chloride 0.9% Inj 100 ML IV.SIG SCH ×5 (12:38→20:25)
[2017-10-28] MEDS ORDERED: Potassium Chloride 25 MEQ Effervescent Tablet PO ONE (15:48)
--- NOTE | 2017-10-28 16:02 | P.PNIM ---
Subjective Interval history: The patient was waiting for food. Nursing checked with surgery who stated the patient can have a soft food diet, so that was ordered. The patient said that 1 of the drains was removed. She has no acute complaints. Physical Exam Vital signs: Vital Signs 10/27/17 16:00 10/27/17 20:44 10/28/17 00:28 Temperature 98.1 F 97.0 F L 97.8 F Pulse Rate 74 71 77 Respiratory Rate 14 18 20 Blood Pressure 148/68 H 164/70 H 115/59 L Pulse Oximetry 97 96 96 10/28/17 04:56 10/28/17 08:00 10/28/17 12:00 Temperature 97.1 F L 97.9 F 97.9 F Pulse Rate 65 66 84 Respiratory Rate 18 14 16 Blood Pressure 133/63 130/61 141/66 H Pulse Oximetry 98 96 98 Intake & Output 10/27/17 10/28/17 10/28/17 18:59 06:59 18:59 Intake Total 4180 / 4180 560 / 560 200 / 200 Output Total 1575 / 1575 115 / 115 Balance 2605 / 2605 445 / 445 200 / 200 Weight 104.6 kg Intake: IV 100 / 100 200 / 200 200 / 200 Azactam Inj 2 GM In NS Inj 100 200 / 200 ML @ 200 mls/hr IV.SIG Q6H [facility] Rx#:[id number] Flagyl 500 MG Inj 100 ML @ 100 100 / 100 200 / 200 mls/hr IV.SIG Q8H [facility] Rx#: [id number] Oral 240 / 240 360 / 360 Tube Feeding 20 / 20 Tube Irrigant 20 / 20 Anesthesia Amount 3800 / 3800 Output: Urine 300 / 300 Estimated Blood Loss 100 / 100 Urine Amount (Catheter) 750 / 750 Indwelling Urethral Catheter 750 / 750 Gastric Drainage 200 / 200 Gastrostomy Tube (PEG) 0 / 0 Left Upper Quadrant Jejunostomy 200 / 200 Tube Wound Drainage 225 / 225 115 / 115 # 1 EMMA Drain 50 / 50 15 / 15 #2 EMMA Drain 10 / 10 100 / 100 #3 J Tube Drain (Red) 15 / 15 Medial Abdomen 150 / 150 Other: # Voids 1 3 # Bowel Movements 0 Narrative: GENERAL: No apparent distress. CARDIOVASCULAR: Normal rate and regular rhythm without murmurs, gallops, or rubs. RESPIRATORY: Good respiratory efforts. Breath sounds equal and clear to auscultation bilaterally. GASTROINTESTINAL: Abdomen soft obese, there are 2 drains on the right. Midline incision noted and is clean. NEURO: Alert & Oriented. Moves all ext x4 PSYCH: Calm. - Urinary Catheter Management Indwelling Urethral Catheter Cath placed during this visit: yes, but has since been removed by the nurse Urethral indwelling: Yes Reason for continuing: Hourly intake/output Insertion date: 10/18/17 Insertion time: 09:00 Removal date: 10/24/17 Removal time: 15:00 Results - Labs CBC & Chem 7: 10/28/17 06:58 10/28/17 06:58 Laboratory Results - last 24 hr 10/28/17 10/28/17 10/28/17 06:58 06:58 12:07 WBC 11.1 H RBC 4.17 Hgb 10.7 L Hct 32.9 L MCV 78.8 L MCH 25.7 L MCHC 32.6 RDW 15.1 Plt Count 477 H MPV 7.8 Prelim Diff (Auto) Slide review pending Neut % (Auto) 70.8 H Lymph % (Auto) 21.4 Meeker % (Auto) 4.3 Eos % (Auto) 2.9 Baso % (Auto) 0.6 Neut # (Auto) 7.9 H Lymph # (Auto) 2.4 Meeker # (Auto) 0.5 Eos # (Auto) 0.3 Baso # (Auto) 0.1 WBC Differential Manual diff final Seg Neuts % (Manual) 65 Band Neuts % (Manual) 12 H Lymphocytes % (Manual) 17 Monocytes % (Manual) 5 Myelocytes % (Man) 1 H Abs Neuts (Manual) 8.7 H Differential Comment . Platelet Estimate High H Platelet Morphology Normal Sodium 140 Potassium 3.2 L Chloride 102 Carbon Dioxide 26.6 Anion Gap 11 BUN 5 L Creatinine 0.45 L Estimated GFR Greater than 89 POC Glucose 132 H Random Glucose 114 H Calcium 8.1 L Assessment and Plan - Plan 62-year-old female admitted for Whipple procedure (pancreaticoduodenectomy) with Mindi-en-Y reconstruction. Gastrostomy, Jejunostomy tube placement. Extensive lysis of adhesions, Open omentectomy. 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 Gastrostomy , Jejunostomy tube placement. Extensive lysis of adhesions, Open omentectomy. Intraabdominal drains in place Gen surgery following. Advanced to soft diet. Currently on pantoprazole 40 mg IV daily. Holding cholestyramine 4 g 3 times daily and docusate sodium 100 mg twice daily for constipation. Postop pain management per Gen surgery Continue antibiotics Depression/anxiety Bipolar disorder NOS Fibromyalgia Chronic benzodiazepine use Resume home dose oral Ativan and Atarax. Monitor neuro status. Tobaccoism Nasal cannula to maintain saturations greater than or equal to 92% Incentive spirometry while awake As needed albuterol therapy every 2 hours Diabetes mellitus type 2/diet-controlled Hypothyroidism Sliding scale insulin with aspart insulin Accu-Cheks every 6 hours to maintain euglycemia/low regimen On Levothyroxine. Home dose. Patient can take own medication Hypokalemia Replace and monitor Confusion Noted by nursing. May be delirium. - monitor mental status and avoid sedating meds. Prophylaxis -GI -pantoprazole -DVT -Heparin
[2017-10-29] MEDS: Insulin NovoLOG Aspart Correctional Sugar Inj SQ SCH ×3 (00:28→11:56)
[2017-10-29] MEDS: Acetaminophen 325 MG Tablet PO PRN (00:44)
[2017-10-29] MEDS: Aztreonam Inj 2 GM in Sodium Chloride 0.9% Inj 100 ML IV.SIG SCH ×4 (01:04→20:25)
[2017-10-29] MEDS: Heparin - SQ 10,000 UNITS/ML Vial SQ SCH ×3 (05:29→21:09)
[2017-10-29] MEDS: SYNTHROID 150 MCG PO SCH (05:35)
--- NOTE | 2017-10-29 09:12 | P.PNGS ---
Subjective Patient reports: feels better (c/o kaelyn tubes leaking, ), flatus, bowel movement Physical Exam Vital signs: Vital Signs 10/28/17 12:00 10/28/17 16:00 10/28/17 20:00 Temperature 97.9 F 97.9 F 97.8 F Pulse Rate 84 76 66 Respiratory Rate 16 16 17 Blood Pressure 141/66 H 134/63 132/63 Pulse Oximetry 98 96 95 10/28/17 22:28 10/29/17 00:00 10/29/17 04:00 Temperature 97 F L Pulse Rate 66 Respiratory Rate 17 18 Blood Pressure 130/60 Pulse Oximetry 95 100 10/29/17 08:00 Temperature 98.2 F Pulse Rate 64 Respiratory Rate 16 Blood Pressure 141/64 H Pulse Oximetry 98 Intake & Output 10/28/17 10/29/17 10/29/17 18:59 06:59 18:59 Intake Total 1800 / 1800 980 / 980 Output Total 200 / 200 Balance 1800 / 1800 980 / 980 -200 / -200 Intake: IV 200 / 200 500 / 500 Azactam Inj 2 GM In NS Inj 100 200 / 200 300 / 300 ML @ 200 mls/hr IV.SIG Q6H [facility] Rx#:[id number] Flagyl 500 MG Inj 100 ML @ 100 200 / 200 mls/hr IV.SIG Q8H [facility] Rx#: [id number] Oral 1200 / 1200 480 / 480 Other 400 / 400 Output: Wound Drainage 200 / 200 # 1 KAELYN Drain 200 / 200 #2 KAELYN Drain 0 / 0 Other: # Voids 3 4 1 Date of Last Bowel Movement 10/28/17 - Routine Abdominal Exam Present: soft (incision c/d/i, kaelyn in place x2 15/150cc ) - Urinary Catheter Management Indwelling Urethral Catheter Cath placed during this visit: yes, but has since been removed by the nurse Urethral indwelling: Yes Reason for continuing: Hourly intake/output Insertion date: 10/18/17 Insertion time: 09:00 Removal date: 10/24/17 Removal time: 15:00 Assessment and Plan - Assessment (1) Ampulla of Vater mass Code(s): K83.9 - Disease of biliary tract, unspecified Status: Acute - Plan s/p whipple soft diet oob pain control po kaelyn to sxn, will consider ostomy bag prior to discharge dvt ppx anticipate d/c 24-[address] Beaulieu and Dr Caraballo
--- NOTE | 2017-10-29 12:00 | P.PNIM ---
Subjective Interval history: The patient states that she has had a bowel movement. She has had some difficulties with getting her food in a timely manner. Otherwise she feels well and would like to go home tomorrow. Discussed with nursing at the bedside. Physical Exam Vital signs: Vital Signs 10/28/17 12:00 10/28/17 16:00 10/28/17 20:00 Temperature 97.9 F 97.9 F 97.8 F Pulse Rate 84 76 66 Respiratory Rate 16 16 17 Blood Pressure 141/66 H 134/63 132/63 Pulse Oximetry 98 96 95 10/28/17 22:28 10/29/17 00:00 10/29/17 04:00 Temperature 97 F L Pulse Rate 66 Respiratory Rate 17 18 Blood Pressure 130/60 Pulse Oximetry 95 100 10/29/17 08:00 Temperature 98.2 F Pulse Rate 64 Respiratory Rate 16 Blood Pressure 141/64 H Pulse Oximetry 98 Intake & Output 10/28/17 10/29/17 10/29/17 18:59 06:59 18:59 Intake Total 1800 / 1800 980 / 980 100 / 100 Output Total 200 / 200 Balance 1800 / 1800 980 / 980 -100 / -100 Intake: IV 200 / 200 500 / 500 100 / 100 Azactam Inj 2 GM In NS Inj 100 200 / 200 300 / 300 100 / 100 ML @ 200 mls/hr IV.SIG Q6H [facility] Rx#:[id number] Flagyl 500 MG Inj 100 ML @ 100 200 / 200 mls/hr IV.SIG Q8H [facility] Rx#: [id number] Oral 1200 / 1200 480 / 480 Other 400 / 400 Output: Wound Drainage 200 / 200 # 1 EMMA Drain 200 / 200 #2 EMMA Drain 0 / 0 Other: # Voids 3 4 1 Date of Last Bowel Movement 10/28/17 10/28/17 Narrative: GENERAL: No apparent distress. CARDIOVASCULAR: Normal rate and regular rhythm without murmurs, gallops, or rubs. RESPIRATORY: Good respiratory efforts. Breath sounds equal and clear to auscultation bilaterally. GASTROINTESTINAL: Abdomen soft obese, there are 2 drains on the right. Midline incision noted and is clean. NEURO: Alert & Oriented. Moves all ext x4 PSYCH: Calm. - Urinary Catheter Management Indwelling Urethral Catheter Cath placed during this visit: yes, but has since been removed by the nurse Urethral indwelling: Yes Reason for continuing: Hourly intake/output Insertion date: 10/18/17 Insertion time: 09:00 Removal date: 10/24/17 Removal time: 15:00 Results - Labs CBC & Chem 7: 10/28/17 06:58 10/28/17 06:58 Laboratory Results - last 24 hr 10/28/17 10/28/17 10/29/17 12:07 17:16 00:21 POC Glucose 132 H 138 H 121 H 10/29/17 10/29/17 05:34 11:49 POC Glucose 127 H 116 H Assessment and Plan - Plan 62-year-old female admitted for Whipple procedure (pancreaticoduodenectomy) with Mindi-en-Y reconstruction. Gastrostomy, Jejunostomy tube placement. Extensive lysis of adhesions, Open omentectomy. 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 Gastrostomy , Jejunostomy tube placement. Extensive lysis of adhesions, Open omentectomy. Intraabdominal drains in place Gen surgery following. Advanced to soft diet. Currently on pantoprazole 40 mg daily. Holding cholestyramine 4 g 3 times daily and docusate sodium 100 mg twice daily for constipation. Postop pain management per Gen surgery Continue antibiotics Depression/anxiety Bipolar disorder NOS Fibromyalgia Chronic benzodiazepine use Resume home dose oral Ativan and Atarax. Monitor neuro status. Tobaccoism Nasal cannula to maintain saturations greater than or equal to 92% Incentive spirometry while awake As needed albuterol therapy every 2 hours Diabetes mellitus type 2/diet-controlled Hypothyroidism d/c ISS as glucose has remained well controlled. On Levothyroxine. Home dose. Patient can take own medication Hypokalemia Replaced, continue to monitor Confusion Noted by nursing. May be delirium. - monitor mental status and avoid sedating meds. Prophylaxis -GI -pantoprazole -DVT -Heparin
[2017-10-29] MEDS: Aluminum/Magnesium/Simethacone Susp 30 ML UDC PO PRN (20:25)
[2017-10-30] MEDS: Aztreonam Inj 2 GM in Sodium Chloride 0.9% Inj 100 ML IV.SIG SCH ×3 (03:47→16:01)
[2017-10-30] MEDS: Aluminum/Magnesium/Simethacone Susp 30 ML UDC PO PRN ×2 (03:58→11:49)
[2017-10-30] MEDS: Heparin - SQ 10,000 UNITS/ML Vial SQ SCH ×2 (05:53→16:00)
[2017-10-30] MEDS: SYNTHROID 150 MCG PO SCH (05:54)
[2017-10-30 08:18] LABS: Anion Gap 11 meq/L (5-15); Blood Urea Nitrogen 8 mg/dL (7-18); Calcium 7.9 mg/dL (8.5-10.1); Carbon Dioxide 26.4 meq/L (21.0-32.0); Chloride 101 meq/L (98-107); Glomerular Filtration Rate Greater Than 89 mL/min (>89); Glucose,Random 126 mg/dL (74-106); Magnesium 2.3 mg/dL (1.5-2.5); Potassium 3.2 meq/L (3.5-5.1); Sodium 138 meq/L (136-145)
[2017-10-30 12:47] VITALS: BP 126/63; PULSE 79; RESP 18; TEMP 98.1; O2SAT 94
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
[2017-10-30] MEDS ORDERED: levoFLOXacin 500 MG Tablet PO SCH (16:15)
[2017-11-01] MEDS ORDERED: LEVOTHYROXINE 75 MCG PO SCH (06:00)
== END 2017-10-30 17:10 | disposition home health service (06) ==
LOC: HSDI 05:37 → N03 18:27 → N07 10-27 19:37
PROVIDERS: ADMIT Surgery; ATTEND Surgery

== ENCOUNTER 2017-11-30 10:11 | Inpatient (IN) ==
[2017-11-30] MEDS ORDERED: Sod Chloride 0.9% Inj 1,000 ML IV.SIG ONE (11:30)
[2017-11-30 12:08] LABS: Chloride 97 meq/L (98-107); Hematocrit 41.1 % (35.0-46.0); Hemoglobin 13.5 gm/dL (11.6-15.3); Mean Corpuscular HGB Conc 32.8 % (32.0-36.0); Mean Corpuscular Volume 82.2 fL (80.0-100.0); Platelet Count 257 th/mm3 (150-450); Red Blood Count 4.99 mil/mm3 (4.00-5.30); Red Cell Distribution Width 15.1 % (11.6-17.2); Sodium 136 meq/L (136-145); White Blood Count 7.7 th/mm3 (4.0-11.0)
[2017-11-30 12:11] LABS: Albumin 3.3 g/dL (3.4-5.0); Anion Gap 14 meq/L (5-15); Calcium 8.9 mg/dL (8.5-10.1); Carbon Dioxide 24.9 meq/L (21.0-32.0); Glucose,Random 121 mg/dL (74-106); Lipase 344 U/L (73-393)
[2017-11-30 12:12] LABS: Blood Urea Nitrogen 8 mg/dL (7-18)
[2017-11-30 12:14] LABS: Alanine Aminotransferase 24 U/L (10-53); Aspartate Aminotransferase 21 U/L (15-37); Glomerular Filtration Rate Greater Than 89 mL/min (>89)
[2017-11-30 12:16] LABS: Total Protein 7.6 g/dL (6.4-8.2)
[2017-11-30 12:17] LABS: Alkaline Phosphatase 102 U/L (45-117)
[2017-11-30] MEDS: KCL 20 mEq/D5W/NaCl 0.9% Inj 1,000 ML IV.SIG SCH (17:17)
[2017-11-30] MEDS: Potassium Chlor 10 mEq Premix 10 MEQ/100 ML PIGGYBACK IV.SIG SCH ×2 (17:53→22:07)
[2017-12-01] MEDS: KCL 20 mEq/D5W/NaCl 0.9% Inj 1,000 ML IV.SIG SCH ×3 (01:11→18:37)
[2017-12-01 07:32] LABS: Hematocrit 39.5 % (35.0-46.0); Mean Corpuscular HGB Conc 32.9 % (32.0-36.0); Mean Corpuscular Hemoglobin 26.9 pg (27.0-34.0); Mean Corpuscular Volume 81.8 fL (80.0-100.0); Mean Platelet Volume 9.5 fL (7.0-11.0); Platelet Count 213 th/mm3 (150-450); Red Blood Count 4.82 mil/mm3 (4.00-5.30); Red Cell Distribution Width 15.7 % (11.6-17.2); White Blood Count 5.9 th/mm3 (4.0-11.0)
[2017-12-01 07:54] LABS: Anion Gap 11 meq/L (5-15); Blood Urea Nitrogen 6 mg/dL (7-18); Carbon Dioxide 22.9 meq/L (21.0-32.0); Chloride 105 meq/L (98-107); Glomerular Filtration Rate Greater Than 89 mL/min (>89); Glucose,Random 130 mg/dL (74-106); Potassium 3.1 meq/L (3.5-5.1); Sodium 139 meq/L (136-145)
--- NOTE | 2017-12-01 08:45 | P.PNGS ---
Subjective Interval history: Resting in bed Feeling better after the IV fluids Going to try to eat a bagel with cream cheese for breakfast Physical Exam Vital signs: Vital Signs 11/30/17 16:00 11/30/17 20:00 12/01/17 00:00 Temperature 98.1 F 97.0 F L 98.2 F Pulse Rate 64 68 77 Respiratory Rate 19 16 16 Blood Pressure 145/65 H 132/69 125/58 L Pulse Oximetry 97 99 93 L Intake & Output 11/30/17 12/01/17 12/01/17 18:59 06:59 18:59 Intake Total 340 / 340 1100 / 1100 1000 / 1000 Output Total 200 / 200 Balance 140 / 140 1100 / 1100 1000 / 1000 Weight 88.63 kg 89.5 kg Intake: IV 100 / 100 1100 / 1100 1000 / 1000 D5W/NS + KCL 20 mEq Inj 1,000 0 / 0 1000 / 1000 ML @ 110 mls/hr IV.SIG .Q9H6M [facility] Rx#:[id number] KCl 10 mEq Premix Inj 10 meq In 100 / 100 100 / 100 100 ml @ 100 mls/hr IV.SIG Q1H [facility] Rx#:[id number] NS Inj 1,000 ML @ 500 mls/hr IV 1000 / 1000 .SIG .Q2H ONE Rx#:[id number] Oral 240 / 240 Output: Urine 200 / 200 Stool 0 / 0 Other: # Voids 2 Date of Last Bowel Movement 11/30/17 11/30/17 Weight On Admission 195 g Narrative: Alert and awake Abd: soft Assessment and Plan - Assessment (1) Dehydration Code(s): E86.0 - Dehydration Status: Acute Plan: 62 year old female s/p whipple several weeks ago; back with weight loss; dehydration -Continue IVF with K -Replace K -Regular diet--- as tolerated -OOB and mobilize -Check labs again tomorrow - Attending Attestation The exam, history, and the medical decision-making described in the above note were completed with the assistance of the mid-level provider. I reviewed and agree with the findings presented. I attest that I had a [id number] encounter with the patient on the same day, and personally performed and documented my assessment and findings in the medical record. 62yo female with N/V 6 weeks after Whipple, likely delayed gastric emptying will need IVF and replace lytes will try trial of full liquids, if fails will need GI to see, possibly TPN long D/W patient
[2017-12-01] MEDS: Potassium Chlor 10 mEq Premix 10 MEQ/100 ML PIGGYBACK IV.SIG SCH ×4 (11:06→16:19)
[2017-12-02] MEDS ORDERED: Pantoprazole Inj 40 MG Vial IV.PUSH ONE (00:45)
[2017-12-02] MEDS: Aluminum/Magnesium/Simethacone Susp 30 ML UDC PO PRN (01:23)
[2017-12-02] MEDS: KCL 20 mEq/D5W/NaCl 0.9% Inj 1,000 ML IV.SIG SCH ×3 (05:22→21:51)
[2017-12-02 08:16] LABS: Chloride 107 meq/L (98-107); Potassium 3.5 meq/L (3.5-5.1); Sodium 140 meq/L (136-145)
[2017-12-02 08:18] LABS: Calcium 7.9 mg/dL (8.5-10.1)
[2017-12-02 08:19] LABS: Anion Gap 9 meq/L (5-15); Blood Urea Nitrogen 2 mg/dL (7-18); Glucose,Random 116 mg/dL (74-106)
[2017-12-02 08:23] LABS: Glomerular Filtration Rate Greater Than 89 mL/min (>89)
--- NOTE | 2017-12-02 15:11 | P.PN ---
Subjective Interval history: Continuing to have episodic emesis. Patient reports she has also having a fair amount of burping. She cannot tolerate any food. Physical Exam Vital signs: Vital Signs 12/01/17 16:00 12/01/17 20:00 12/02/17 00:00 Temperature 98.1 F 97.3 F L 96.8 F L Pulse Rate 67 66 61 Respiratory Rate 18 16 16 Blood Pressure 158/70 H 160/73 H 126/65 Pulse Oximetry 97 97 96 12/02/17 08:00 12/02/17 12:00 Temperature 97.9 F 97.5 F L Pulse Rate 60 62 Respiratory Rate 18 18 Blood Pressure 141/67 H 144/66 H Pulse Oximetry 97 99 Intake & Output 12/01/17 12/02/17 12/02/17 18:59 06:59 18:59 Intake Total 3125 / 3125 1000 / 1000 1000 / 1000 Balance 3125 / 3125 1000 / 1000 1000 / 1000 Weight 91.3 kg Intake: IV 2300 / 2300 1000 / 1000 1000 / 1000 D5W/NS + KCL 20 mEq Inj 1,000 2000 / 2000 1000 / 1000 1000 / 1000 ML @ 110 mls/hr IV.SIG .Q9H6M [facility] Rx#:[id number] KCl 10 mEq Premix Inj 10 meq In 300 / 300 100 ml @ 100 mls/hr IV.SIG Q1H [facility] Rx#:[id number] Oral 825 / 825 Other: # Voids 6 2 Date of Last Bowel Movement 11/30/17 11/30/17 # Bowel Movements 3 - Routine Abdominal Exam Present: soft, normoactive bowel sounds, tenderness (Mild in upper abdomen. No guarding) Results - Labs CBC & Chem 7: 12/01/17 07:22 12/02/17 07:10 Laboratory Results - last 24 hr 12/02/17 07:10 Sodium 140 Potassium 3.5 Chloride 107 Carbon Dioxide 24.0 Anion Gap 9 BUN 2 L Creatinine 0.50 Estimated GFR Greater than 89 Random Glucose 116 H Calcium 7.9 L Assessment and Plan - Assessment (1) Dehydration Code(s): E86.0 - Dehydration Status: Acute Plan: Continue IV fluids for now as she is not able to tolerate a diet. May need upper GI or endoscopy by Dr. Mariscal as she is now 6 weeks out from surgery. It is possible she has a marginal ulcer or stenosis of the anastomosis causing a functional outlet obstruction. Dr. Beaulieu to see her in the morning - Plan Discussed Condition With: Patient - Attending Attestation I attest that I had a [id number] encounter with the patient on the same day, and personally performed and documented my assessment and findings in the medical record. The following services were provided during this hospital visit: Chart data review, vital sign assessments/reviewing monitor data Review of consultation notes if present Medication orders/review and/or management Ordering and/or reviewing lab tests Ordering and/or interpreting/reviewing x-rays and/or diagnostic studies Care of the patient and discussion of the patient with the care team Documentation time To help prompt me to consider important information that might be impacting today's encounter and assessment, Information from prior notes written by myself or my colleagues may have been "brought forward/copy and pasted" into today's note.
[2017-12-03] MEDS ORDERED: LEVOTHYROXINE 150 MCG PO SCH (06:00)
[2017-12-03] MEDS: KCL 20 mEq/D5W/NaCl 0.9% Inj 1,000 ML IV.SIG SCH ×2 (07:12→16:11)
--- NOTE | 2017-12-03 18:56 | P.PNGS ---
Subjective Patient reports: no new complaints (no vomiting, still taking minimal PO) Physical Exam Vital signs: Vital Signs 12/02/17 20:00 12/03/17 00:00 12/03/17 08:00 Temperature 98.3 F 98.6 F 97.0 F L Pulse Rate 60 65 63 Respiratory Rate 16 16 18 Blood Pressure 137/72 128/84 135/65 Pulse Oximetry 95 95 97 12/03/17 12:00 12/03/17 16:00 Temperature 97.7 F 97.6 F Pulse Rate 70 70 Respiratory Rate 18 18 Blood Pressure 134/61 139/74 Pulse Oximetry 97 97 Intake & Output 12/02/17 12/03/17 12/03/17 18:59 06:59 18:59 Intake Total 1959 / 1959 1850 / 1850 1260 / 1260 Balance 1959 1850 / 1850 1260 / 1260 Weight 91.7 kg Intake: IV 1000 / 1000 1850 / 1850 300 / 300 D5W/NS + KCL 20 mEq Inj 1,000 1000 / 1000 1850 / 1850 300 / 300 ML @ 110 mls/hr IV.SIG .Q9H6M [facility] Rx#:[id number] Oral 960 / 960 960 / 960 Other: # Voids 6 2 4 Date of Last Bowel Movement 11/30/17 # Bowel Movements 0 1 - Constitutional no acute distress - Routine Respiratory Exam Present: CTA bilaterally - Routine Cardiovascular Exam Present: RRR - Routine Abdominal Exam Present: soft Comments: non-tender Assessment and Plan - Assessment (1) Dehydration Code(s): E86.0 - Dehydration Status: Acute Plan: 62 year old female s/p whipple several weeks ago for recurrent ampullary adenoma -Continue IVF -Replace lytes -diet---as tolerated, poor intake -OOB and mobilize -will need PICC/TPN - consult Dr Dhillon on Monday for possible EGD
[2017-12-03] MEDS: Pantoprazole Inj 40 MG Vial IV.PUSH SCH (20:41)
[2017-12-04] MEDS: KCL 20 mEq/D5W/NaCl 0.9% Inj 1,000 ML IV.SIG SCH ×3 (01:48→21:32)
[2017-12-04 06:38] LABS: Chloride 105 meq/L (98-107); Potassium 3.5 meq/L (3.5-5.1); Sodium 139 meq/L (136-145)
[2017-12-04 06:42] LABS: Anion Gap 9 meq/L (5-15); Carbon Dioxide 24.8 meq/L (21.0-32.0); Glucose,Random 124 mg/dL (74-106)
[2017-12-04 06:45] LABS: Glomerular Filtration Rate 79 mL/min (>89)
[2017-12-04 08:33] LABS: INR 1.2 Ratio; Prothrombin Time 12.5 sec (9.8-11.6)
[2017-12-04] MEDS: Pantoprazole Inj 40 MG Vial IV.PUSH SCH ×2 (08:47→19:58)
[2017-12-04] MEDS ORDERED: Heparin Central Flush 100 UNIT/ML 5 ML Vial IV.FLUSH PRN (10:23)
--- NOTE | 2017-12-04 11:33 | P.PNGS ---
Subjective Interval history: Resting in bed No issues Awaiting to get PICC line today Physical Exam Vital signs: Vital Signs 12/03/17 12:00 12/03/17 16:00 12/03/17 20:00 Temperature 97.7 F 97.6 F 97.5 F L Pulse Rate 70 70 63 Respiratory Rate 18 18 16 Blood Pressure 134/61 139/74 125/67 Pulse Oximetry 97 97 94 L 12/04/17 00:00 12/04/17 08:00 Temperature 97.3 F L 96.6 F L Pulse Rate 70 62 Respiratory Rate 16 18 Blood Pressure 115/67 128/78 Pulse Oximetry 95 98 Intake & Output 12/03/17 12/04/17 12/04/17 18:59 06:59 18:59 Intake Total 1260 / 1260 850 / 850 150 / 150 Balance 1260 / 1260 850 / 850 150 / 150 Weight 91.6 kg Intake: IV 300 / 300 850 / 850 150 / 150 D5W/NS + KCL 20 mEq Inj 1,000 300 / 300 850 / 850 150 / 150 ML @ 110 mls/hr IV.SIG .Q9H6M [facility] Rx#:[id number] Oral 960 / 960 Other: # Voids 4 3 # Bowel Movements 1 Narrative: Alert and awake Abd: soft non tender Assessment and Plan - Assessment (1) Dehydration Code(s): E86.0 - Dehydration Status: Acute Plan: 62 year old female s/p whipple several weeks ago; back with weight loss; dehydration -Continue IVF with K and will start TPN at 2000 -PICC placed today -Continue IV Synthroid -Regular diet--- as tolerated -OOB and mobilize -Will consult GI tomorrow (Dr. Dhillon) - Attending Attestation The exam, history, and the medical decision-making described in the above note were completed with the assistance of the mid-level provider. I reviewed and agree with the findings presented. I attest that I had a [id number] encounter with the patient on the same day, and personally performed and documented my assessment and findings in the medical record. 62yo s/p Whipple, N/V and weight loss, likely delayed gastric emptying after RNY reconstruction VSS, AF diet as tolerated, poor intake will need TPN/PICC if cannot tolerate sufficient PO intake
[2017-12-04] MEDS: SYNTHROID 150 MCG PO SCH (13:00)
[2017-12-04] MEDS: [UNRECOGNIZED DRUG - OTHER] IV.SIG SCH (20:00)
[2017-12-04] MEDS: FOLIC ACID IV.SIG SCH (20:00)
[2017-12-04] MEDS: MULTIVITAMIN IV.SIG SCH (20:00)
[2017-12-05] MEDS: SYNTHROID 150 MCG PO SCH (06:35)
[2017-12-05] MEDS: Pantoprazole Inj 40 MG Vial IV.PUSH SCH ×2 (08:35→21:12)
[2017-12-05] MEDS: Heparin Central Flush 100 UNIT/ML 5 ML Vial IV.FLUSH SCH (08:35)
--- NOTE | 2017-12-05 11:01 | P.DIET ---
Nutritional Evaluation Type of nutrition evaluation: initial Nutrition consult regarding: TPN/PPN Subjective Subjective Comments: Eating 50% at some meals and refusing some meals. Objective - Diagnosis Abdominal Pain - Objective % IBW: 168 (120#) Body Weight Used for Calculations: Upper end of IBW (132#/ 60 kg) Energy Needs - Lower Range (kCal/kg): 25 Energy Needs - Upper Range (kCal/kg): 30 Lower Limit kCal/kg (kCals): 1,500 Upper Limit kCal/kg (kCals): 1,800 Lower Limit Protein Factor (Grams per Kg): 1.0 Upper Limit Protein Factor (Grams per Kg): 1.5 Lower Protein Needs (Protein): 60 Upper Protein Needs (Protein): 90 Dietitian Reviewed in Medical Record: Current diet, Curent medications, Intake & Output, Labs, Medical history, TPN/PPN Diet Order: Soft Assessment Assessment: Pt was admitted 6 weeks s/p Whipple with N/V. TPN/lipids have been ordered as Clinimix E 4.25/25 @ 83 mls/hr with 20% lipids 250 mls/day. Recommend change to Clinimix E 5/20 @ 60 mls/hr with the same lipids to provide 1767 kcals and 72 gms protein. Request weekly TG while pt is on TPN/lipids. Monitor glucose. Recommendations: TPN: Clinimix E 5/20 @ 60 mls/hr LIPIDS: 20% lipids 250 mls/day DIET per surgery Dietitian to Monitor: Lab values, Glucose level, Intake & Output, TPN/PPN tolerance, Weight change, PO Intake, Medical course
--- NOTE | 2017-12-05 16:06 | P.PNGS ---
Subjective Interval history: No issues Going to try pot roast for dinner Physical Exam Vital signs: Vital Signs 12/04/17 20:00 12/05/17 00:00 12/05/17 08:00 Temperature 96.9 F L 97.3 F L 96.1 F L Pulse Rate 80 71 76 Respiratory Rate 18 18 16 Blood Pressure 142/67 H 109/70 122/74 Pulse Oximetry 97 95 97 12/05/17 12:00 12/05/17 15:40 Temperature 96.8 F L 98.5 F Pulse Rate 74 80 Respiratory Rate 16 16 Blood Pressure 126/72 108/66 Pulse Oximetry 98 96 Intake & Output 12/04/17 12/05/17 12/05/17 18:59 06:59 18:59 Intake Total 710 / 710 3000 / 3000 250 / 250 Balance 710 / 710 3000 / 3000 250 / 250 Weight 91.6 kg Intake: IV 150 / 150 1999 / 1999 250 / 250 Intralipid 20% Inj 250 ML @ 31. 0 / 0 250 / 250 25 mls/hr IV.CENTRAL DAILY@1999 [facility] Rx#:[id number] D5W/NS + KCL 20 mEq Inj 1,000 150 / 150 1999 / 1999 ML @ 110 mls/hr IV.SIG .Q9H6M [facility] Rx#:[id number] Oral 560 / 560 1000 / 1000 Other: # Voids 4 2 Date of Last Bowel Movement 11/30/17 # Bowel Movements 1 Narrative: Alert and awake Abd: soft RIGHT arm PICC in place Assessment and Plan - Assessment (1) Dehydration Code(s): E86.0 - Dehydration Status: Acute Plan: 62 year old female s/p whipple several weeks ago; back with weight loss; dehydration -Awaiting GI consult -Continue TPN--okay to change formula based on RD recommendations tomorrow -PICC placed -Regular diet--- as tolerated -OOB and mobilize - Attending Attestation The exam, history, and the medical decision-making described in the above note were completed with the assistance of the mid-level provider. I reviewed and agree with the findings presented. I attest that I had a [id number] encounter with the patient on the same day, and personally performed and documented my assessment and findings in the medical record. 62yo s/p Whipple, N/V and weight loss, likely delayed gastric emptying after RNY reconstruction not taking much PO GI consult placed will continue TPN
--- NOTE | 2017-12-05 18:07 | MB ---
cc: Alex Byrne MD DATE: 12/05/2017 REASON FOR CONSULTATION: Evaluation of nausea, vomiting, dehydration, epigastric pain. HISTORY OF PRESENT ILLNESS: This is a pleasant 62-year-old female who was admitted with the aforementioned symptoms above. 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 The patient is about 6 weeks out from her most recent surgery. She is unable to keep down any p.o. intake since about a week ago. She has had multiple bouts of nausea and vomiting with suspected motility disorder causing the symptoms. We discussed the possibility of a surgical anastomotic stricture as well as a possibility. The patient has been started on TPN. She has been feeling better now and she would like to attempt to take in some p.o. solids, which will be started today. I have reviewed her labs. Her white count is normal. CBC is otherwise unremarkable. INR is 1.2. Her electrolytes reveal a low potassium that is being replaced. It is currently 3.5. Her liver enzymes are completely normal. Alkaline phosphatase is normal. Lipase was 340. Albumin is 3.3. According to the patient, she has had imaging studies performed and no obvious abnormalities have been seen. I was asked to evaluate further. ALLERGIES: 1. INCLUDE: AMITRIPTYLINE, CEFACLOR, DOXEPIN, REGLAN WELL. MEDICATIONS: Include: 1. Ativan. 2. Ondansetron. 3. Pantoprazole. 4. Synthroid. FAMILY HISTORY: Negative from a GI standpoint and there is no history of pancreatic malignancies or colon cancer. SOCIAL HISTORY: There is no history of illicit drug use or tobacco use. REVIEW OF SYSTEMS: A 12-point review of systems was stated in the HPI. She has had weight loss because of her inability to keep n.p.o. nutrition down. She is feeling better at this time. She has had epigastric discomfort in a band-like sensation squeezing her abdomen as well. She has had no gastrointestinal bleeding whatsoever. PHYSICAL EXAMINATION: GENERAL: Reveals a pleasant, well-developed female, alert and oriented x3, in no acute distress. VITAL SIGNS: Stable. She is afebrile, normotensive. SKIN: Warm. No unusual rashes. HEENT: Normocephalic. Sclerae are anicteric. Oral mucosa moist. NECK: Supple. CARDIAC: S1, S2. Regular rate and rhythm. LUNGS: Clear. ABDOMEN: Somewhat obese, but soft. No exact tenderness palpable. No masses palpable. Bowel sounds are present. Her surgical scars are extremely well-healed. EXTREMITIES: Without clubbing, cyanosis or edema. NEUROLOGIC: She appears to be intact at this time. IMPRESSION: 1. 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 2. Recent nausea and vomiting, failure to thrive. Etiology may be related to poor motility. Cannot rule out a fixed obstruction or stricture of the anastomotic line. Adhesive disease also may play a role in the above. The patient seems to have responded to TPN therapy. PLAN: Would continue TPN. The patient will try to take in some p.o. nutrition at this time and see how she responds. If her symptoms persist, I did discuss with the patient that there may be a need for an upper endoscopic evaluation to look at the anastomotic lines and make sure there is no obstructive lesion or stricture. If so, a balloon dilation could be attempted if one is encountered. Otherwise, the patient appears to be fairly healthy at this time despite all the surgical procedures she has had for her disease. She appears comfortable at this time. We will be glad to follow her with you and make further recommendations as we proceed. The patient also may have had a component of dehydration and hypokalemia and electrolyte imbalance, which could have contributed of course to her symptoms. TPN certainly has been helpful to this point. I will continue that until she is able to take in p.o. on her own. MD PAM Adam/ajith , 05:22 PM , 05:32 PM
[2017-12-05] MEDS ORDERED: TPN Fluid 1 Liter 1,000 ML IV.SIG SCH (20:00)
[2017-12-05] MEDS: [UNRECOGNIZED DRUG - OTHER] IV.SIG SCH (21:24)
[2017-12-05] MEDS: MULTIVITAMIN IV.SIG SCH (21:24)
[2017-12-05] MEDS: FOLIC ACID IV.SIG SCH (21:24)
[2017-12-06] MEDS ORDERED: LEVOTHYROXINE 75 MCG PO SCH (06:00)
[2017-12-06 06:31] LABS: Baso % (Auto) 0.5 % (0.0-2.0); Eos # (Auto) 0.2 th/mm3 (0.0-0.4); Eos % (Auto) 2.3 % (0.0-4.0); Hematocrit 40.4 % (35.0-46.0); Hemoglobin 13.2 gm/dL (11.6-15.3); Lymph # (Auto) 2.8 th/mm3 (1.0-4.8); Lymph % (Auto) 38.8 % (9.0-44.0); Mean Corpuscular HGB Conc 32.8 % (32.0-36.0); Mean Corpuscular Hemoglobin 26.9 pg (27.0-34.0); Mean Corpuscular Volume 81.9 fL (80.0-100.0); Mean Platelet Volume 9.3 fL (7.0-11.0); Mono # (Auto) 0.5 th/mm3 (0.0-0.9); Mono % (Auto) 6.4 % (0.0-8.0); Neut # (Auto) 3.8 th/mm3 (1.8-7.7); Platelet Count 251 th/mm3 (150-450); Red Blood Count 4.93 mil/mm3 (4.00-5.30); Red Cell Distribution Width 15.1 % (11.6-17.2); White Blood Count 7.3 th/mm3 (4.0-11.0)
[2017-12-06] MEDS: SYNTHROID 150 MCG PO SCH (06:33)
[2017-12-06 06:41] LABS: Calcium 8.3 mg/dL (8.5-10.1); Carbon Dioxide 26.6 meq/L (21.0-32.0)
--- NOTE | 2017-12-06 09:05 | P.PNGS ---
Subjective Interval history: Reports she has been getting out of bed but not walking in the hallways Did have some nausea about 0530 today Physical Exam Vital signs: Vital Signs 12/05/17 12:00 12/05/17 15:40 12/05/17 20:00 Temperature 96.8 F L 98.5 F 97.7 F Pulse Rate 74 80 82 Respiratory Rate 16 16 16 Blood Pressure 126/72 108/66 122/62 Pulse Oximetry 98 96 97 12/06/17 00:00 Temperature 97.6 F Pulse Rate 78 Respiratory Rate 16 Blood Pressure 116/61 Pulse Oximetry 97 Intake & Output 12/05/17 12/06/17 12/06/17 18:59 06:59 18:59 Intake Total 250 / 250 3260.2 / 3260.2 Balance 250 / 250 3260.2 / 3260.2 Weight 91.6 kg Intake: IV 250 / 250 2260.2 / 2260.2 Intralipid 20% Inj 250 ML @ 31. 250 / 250 250 / 250 25 mls/hr IV.CENTRAL DAILY@2000 [facility] Rx#:[id number] MVI-12 Inj 10 ML Folvite Inj 1 2009.2 / 2009.2 MG In Clinimix E 4.25%/25% Inj 2,000 ML @ 83 mls/hr IV.SIG Q24H [facility] Rx#:[id number] Oral 1000 / 1000 Other: # Voids 4 3 Date of Last Bowel Movement 11/30/17 11/30/17 Narrative: Alert and awake Abd: soft non tender Assessment and Plan - Assessment (1) Dehydration Code(s): E86.0 - Dehydration Status: Acute Plan: 62 year old female s/p [facility] several weeks ago; back with weight loss; dehydration -GI following -Continue TPN--okay to change formula based on RD recommendations today -Replace K -CMP in AM -PICC -Regular diet--- as tolerated -OOB and mobilize
--- NOTE | 2017-12-06 10:02 | P.PNGI ---
Subjective Interval history: Patient tolerating diet but only eating small amounts. Some nausea this morning but no vomiting. Abdominal pain control with meds Physical Exam Vital signs: Vital Signs 12/05/17 12:00 12/05/17 15:40 12/05/17 20:00 Temperature 96.8 F L 98.5 F 97.7 F Pulse Rate 74 80 82 Respiratory Rate 16 16 16 Blood Pressure 126/72 108/66 122/62 Pulse Oximetry 98 96 97 12/06/17 00:00 Temperature 97.6 F Pulse Rate 78 Respiratory Rate 16 Blood Pressure 116/61 Pulse Oximetry 97 Intake & Output 12/05/17 12/06/17 12/06/17 18:59 06:59 18:59 Intake Total 250 / 250 3260.2 / 3260.2 Balance 250 / 250 3260.2 / 3260.2 Weight 91.6 kg Intake: IV 250 / 250 2260.2 / 2260.2 Intralipid 20% Inj 250 ML @ 31. 250 / 250 250 / 250 25 mls/hr IV.CENTRAL DAILY@2000 [facility] Rx#:[id number] MVI-12 Inj 10 ML Folvite Inj 1 2009.2 / 2009.2 MG In Clinimix E 4.25%/25% Inj 2,000 ML @ 83 mls/hr IV.SIG Q24H [facility] Rx#:[id number] Oral 1000 / 1000 Other: # Voids 4 3 Date of Last Bowel Movement 11/30/17 11/30/17 - Constitutional no acute distress - Routine HEENT Exam Eye: Absent: conjunctival icterus - Routine Abdominal Exam Present: soft, normoactive bowel sounds. Absent: tenderness, distended - Routine Skin Exam Absent: dry - Routine Neurological Exam Present: alert, oriented X3 Results - Labs CBC & Chem 7: 12/06/17 05:10 12/06/17 05:10 Laboratory Results - last 24 hr 12/06/17 12/06/17 05:10 05:10 CBC w Diff Auto diff final WBC 7.3 RBC 4.93 Hgb 13.2 Hct 40.4 MCV 81.9 MCH 26.9 L MCHC 32.8 RDW 15.1 Plt Count 251 MPV 9.3 Neut % (Auto) 52.0 Lymph % (Auto) 38.8 [place] % (Auto) 6.4 Eos % (Auto) 2.3 Baso % (Auto) 0.5 Neut # (Auto) 3.8 Lymph # (Auto) 2.8 [place] # (Auto) 0.5 Eos # (Auto) 0.2 Baso # (Auto) 0.0 WBC Differential . Differential Comment . Sodium 136 Potassium 3.0 L Chloride 98 Carbon Dioxide 26.6 Anion Gap 11 BUN 16 Creatinine 0.69 Estimated GFR 86 L Random Glucose 179 H Calcium 8.3 L Assessment and Plan - Attending Attestation Impression- 1. Nausea and vomiting. Some nausea early this morning but better now. Eating small amounts of regular diet 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 Continue current treatment program 2. Hold off on endoscopy at present
[2017-12-06] MEDS: Heparin Central Flush 100 UNIT/ML 5 ML Vial IV.FLUSH SCH (11:31)
[2017-12-06] MEDS: Pantoprazole Inj 40 MG Vial IV.PUSH SCH ×2 (11:31→20:41)
[2017-12-06] MEDS: Potassium Chlor 20 mEq Premix 20 MEQ/100 ML PIGGYBACK IV.SIG SCH ×2 (11:32→13:16)
[2017-12-06] MEDS: [UNRECOGNIZED DRUG - OTHER] IV.SIG SCH (20:17)
[2017-12-06] MEDS: FOLIC ACID IV.SIG SCH (20:17)
[2017-12-06] MEDS: MULTIVITAMIN IV.SIG SCH (20:17)
[2017-12-06] MEDS: Aluminum/Magnesium/Simethacone Susp 30 ML UDC PO PRN (21:55)
[2017-12-07] MEDS: Aluminum/Magnesium/Simethacone Susp 30 ML UDC PO PRN ×3 (03:02→21:24)
[2017-12-07 06:32] LABS: Chloride 98 meq/L (98-107); Potassium 3.1 meq/L (3.5-5.1); Sodium 134 meq/L (136-145)
[2017-12-07 06:37] LABS: Albumin 2.6 g/dL (3.4-5.0); Anion Gap 9 meq/L (5-15); Blood Urea Nitrogen 16 mg/dL (7-18); Calcium 7.9 mg/dL (8.5-10.1); Carbon Dioxide 26.8 meq/L (21.0-32.0); Glucose,Random 244 mg/dL (74-106)
[2017-12-07 06:40] LABS: Alanine Aminotransferase 25 U/L (10-53); Aspartate Aminotransferase 26 U/L (15-37); Glomerular Filtration Rate 89 mL/min (>89)
[2017-12-07 06:42] LABS: Total Protein 6.2 g/dL (6.4-8.2)
[2017-12-07 06:43] LABS: Alkaline Phosphatase 100 U/L (45-117)
[2017-12-07] MEDS: SYNTHROID 150 MCG PO SCH (06:48)
[2017-12-07] MEDS: Pantoprazole Inj 40 MG Vial IV.PUSH SCH ×2 (08:58→20:05)
[2017-12-07] MEDS: Potassium Chlor 10 mEq Premix 10 MEQ/100 ML PIGGYBACK IV.SIG SCH ×4 (08:59→15:25)
[2017-12-07] MEDS: Heparin Central Flush 100 UNIT/ML 5 ML Vial IV.FLUSH SCH (10:06)
--- NOTE | 2017-12-07 15:36 | P.DIET ---
Nutritional Evaluation Type of nutrition evaluation: follow-up Nutrition consult regarding: TPN/PPN Subjective Subjective Comments: Small meals today w/ 100% po for breakfast and for lunch Objective - Diagnosis Abdominal Pain - Objective % IBW: 168 (120#) Body Weight Used for Calculations: Upper end of IBW (132#/ 60 kg) Energy Needs - Lower Range (kCal/kg): 25 Energy Needs - Upper Range (kCal/kg): 30 Lower Limit kCal/kg (kCals): 1,500 Upper Limit kCal/kg (kCals): 1,800 Lower Limit Protein Factor (Grams per Kg): 1.0 Upper Limit Protein Factor (Grams per Kg): 1.5 Lower Protein Needs (Protein): 60 Upper Protein Needs (Protein): 90 Dietitian Reviewed in Medical Record: Current diet, Curent medications, Intake & Output, Labs, Medical history, TPN/PPN Diet Order: Soft Objective Comments: s/p whipple several weeks ago Glucose 244, POC glucose 255 LBM 12/06 Feeding - Current TPN/PPN Current TPN: Clinimix E 4.25/25 Current TPN/PPN Rate (ml/hr): 83 Amino Acid and Dextrose Current kCals Provided: 2,040 Amino Acid and Dextrose Current Protein Provided: 85 Current Lipid Concentration: 20% Current Lipids Rate: 250 mls daily over 8 hours 500 ml Daily: No (250ml) Current kCal Provided by TPN/PPN: 2,540 Carbohydrate Load (mg/kg/min): 4 Assessment Assessment: Pt continues at nutritional risk r/t 6 weeks s/p Whipple with N/V requiring TPN. Current TPN provides greater than assessed needs. Rec change TPN to Clinimix E 5/20 @ 60 mls/hr with current lipids to provide 1767 kcals and 72 g protein. Request weekly TG while pt is on TPN/lipids. Pt tolerating small amounts of diet. Labs cfmnzssx-mfhnmuwobdsxh-Dad TPN w/SSI. Wt noted. Dietitian following. Recommendations: TPN: Clinimix E 5/20 @ 60 mls/hr LIPIDS: 20% lipids 250 mls/day DIET per surgery Dietitian to Monitor: Lab values, Electrolytes, Glucose level, Intake & Output, TPN/PPN tolerance, Weight change, PO Intake, Medical course
--- NOTE | 2017-12-07 17:18 | P.PNGS ---
Subjective Interval history: Resting in bed; at bedside Physical Exam Vital signs: Vital Signs 12/06/17 20:00 12/07/17 00:00 12/07/17 04:00 Temperature 97.3 F L 97.2 F L Pulse Rate 84 88 Respiratory Rate 20 20 Blood Pressure 105/57 L 99/61 L 102/70 Pulse Oximetry 97 97 12/07/17 07:28 12/07/17 10:50 12/07/17 11:07 Temperature 98.1 F 98 F Pulse Rate 89 86 Respiratory Rate 20 16 20 Blood Pressure 119/71 118/70 Pulse Oximetry 98 98 12/07/17 15:29 Temperature 98.2 F Pulse Rate 100 H Respiratory Rate 20 Blood Pressure 109/74 Pulse Oximetry 98 Intake & Output 12/06/17 12/07/17 12/07/17 18:59 06:59 18:59 Intake Total 920 / 920 2500.2 / 2500.2 300 / 300 Output Total 700 / 700 Balance 920 / 920 1800.2 / 1800.2 300 / 300 Weight 92 kg Intake: IV 200 / 200 2260.2 / 2260.2 300 / 300 Intralipid 20% Inj 250 ML @ 31. 250 / 250 25 mls/hr IV.CENTRAL DAILY@2000 [facility] Rx#:[id number] MVI-12 Inj 10 ML Folvite Inj 1 2009.2 / 2009.2 MG In Clinimix E 4.25%/25% Inj 2,000 ML @ 83 mls/hr IV.SIG Q24H [facility] Rx#:[id number] KCl 10 mEq Premix Inj 10 meq In 300 / 300 100 ml @ 100 mls/hr IV.SIG Q1H [facility] Rx#:[id number] KCl 20 mEq Premix Inj 20 meq In 200 / 200 100 ml @ 50 mls/hr IV.SIG Q2H [facility] Rx#:[id number] Oral 720 / 720 240 / 240 Output: Urine 700 / 700 Other: # Voids 6 Date of Last Bowel Movement 11/30/17 12/06/17 # Bowel Movements 3 1 Narrative: Alert and awake Abd: soft non tender Assessment and Plan - Assessment (1) Dehydration Code(s): E86.0 - Dehydration Status: Acute Plan: 62 year old female s/p whipple several weeks ago; back with weight loss; dehydration -GI following -Continue TPN -Replace K -CMP/Mag/Phos in AM -PICC -Regular diet--- as tolerated -OOB and mobilize - Attending Attestation The exam, history, and the medical decision-making described in the above note were completed with the assistance of the mid-level provider. I reviewed and agree with the findings presented. I attest that I had a [id number] encounter with the patient on the same day, and personally performed and documented my assessment and findings in the medical record. 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
--- NOTE | 2017-12-07 18:17 | P.PNGI ---
Subjective Interval history: Patient able to take mashed potato type consistency foods but even with this she has gas bloating and nauseabut no vomiting. No overt GI bleeding or fever chills. Denies shortness of breath or palpitation Physical Exam Vital signs: Vital Signs 12/06/17 20:00 12/07/17 00:00 12/07/17 04:00 Temperature 97.3 F L 97.2 F L Pulse Rate 84 88 Respiratory Rate 20 20 Blood Pressure 105/57 L 99/61 L 102/70 Pulse Oximetry 97 97 12/07/17 07:28 12/07/17 10:50 12/07/17 11:07 Temperature 98.1 F 98 F Pulse Rate 89 86 Respiratory Rate 20 16 20 Blood Pressure 119/71 118/70 Pulse Oximetry 98 98 12/07/17 15:29 Temperature 98.2 F Pulse Rate 100 H Respiratory Rate 20 Blood Pressure 109/74 Pulse Oximetry 98 Intake & Output 12/06/17 12/07/17 12/07/17 18:59 06:59 18:59 Intake Total 920 / 920 2500.2 / 2500.2 1360 / 1360 Output Total 700 / 700 Balance 920 / 920 1800.2 / 1800.2 1360 / 1360 Weight 92 kg Intake: IV 200 / 200 2260.2 / 2260.2 400 / 400 Intralipid 20% Inj 250 ML @ 31. 250 / 250 25 mls/hr IV.CENTRAL DAILY@1999 [facility] Rx#:[id number] MVI-12 Inj 10 ML Folvite Inj 1 2009.2 / 2009.2 MG In Clinimix E 4.25%/25% Inj 2,000 ML @ 83 mls/hr IV.SIG Q24H [facility] Rx#:[id number] KCl 10 mEq Premix Inj 10 meq In 400 / 400 100 ml @ 100 mls/hr IV.SIG Q1H [facility] Rx#:[id number] KCl 20 mEq Premix Inj 20 meq In 200 / 200 100 ml @ 50 mls/hr IV.SIG Q2H [facility] Rx#:[id number] Oral 720 / 720 240 / 240 960 / 960 Output: Urine 700 / 700 Other: # Voids 6 4 Date of Last Bowel Movement 11/30/17 12/06/17 # Bowel Movements 3 1 3 - Constitutional no acute distress - Routine HEENT Exam Head: Present: atraumatic Eye: Absent: conjunctival icterus ENT: Present: mucous membranes moist - Routine Neck Exam Present: supple. Absent: lymphadenopathy - Routine Respiratory Exam Present: CTA bilaterally - Routine Cardiovascular Exam Present: RRR - Routine Abdominal Exam Present: soft, normoactive bowel sounds. Absent: tenderness, distended - Routine Extremities Exam Absent: edema - Routine Neurological Exam Present: alert, oriented X3 - Routine Psychiatric Exam Present: normal affect Results - Labs CBC & Chem 7: 12/06/17 05:10 12/07/17 05:10 Laboratory Results - last 24 hr 12/06/17 12/07/17 12/07/17 20:34 05:10 09:09 Sodium 134 L Potassium 3.1 L Chloride 98 Carbon Dioxide 26.8 Anion Gap 9 BUN 16 Creatinine 0.67 Estimated GFR 89 POC Glucose 210 H 232 H Random Glucose 244 H Calcium 7.9 L Total Bilirubin 0.4 AST 26 ALT 25 Alkaline Phosphatase 100 Total Protein 6.2 L D Albumin 2.6 L 12/07/17 12/07/17 11:20 16:22 Sodium Potassium Chloride Carbon Dioxide Anion Gap BUN Creatinine Estimated GFR POC Glucose 255 H 253 H Random Glucose Calcium Total Bilirubin AST ALT Alkaline Phosphatase Total Protein Albumin Assessment and Plan - Attending Attestation 1. Nausea and vomiting. Some nausea early, bloating and gas-patient only tolerating mashed potato type consistency food--?gastroparesis ?partial gastric outlet obstruction 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 Continue current treatment program 2. Patient has stabilized but she still with some GI symptoms and wishes to proceed with an upper endoscopy. We can do this at 7 AM tomorrow morning. Patient understands the upper endoscopy may entail a dilatation of the distal stomach if there is a stenosis noted. 3. The patient understands the indications, risks, complications, benefits, alternatives (upper GI series) and limitations regarding an upper endoscopy include risk of bleeding, perforation, infection, arrhythmias, mediastinitis if a dilatation is done, as well as a small possibility of , etc.
[2017-12-07] MEDS ORDERED: Dextrose 50% in Water 50 ML Vial IV.PUSH PRN (19:08)
[2017-12-07] MEDS: FOLIC ACID IV.SIG SCH (20:03)
[2017-12-07] MEDS: MULTIVITAMIN IV.SIG SCH (20:03)
[2017-12-07] MEDS: [UNRECOGNIZED DRUG - OTHER] IV.SIG SCH (20:03)
[2017-12-07] MEDS: Insulin Detemir Inj 1,000 UNIT/10 ML Vial SQ SCH (20:05)
[2017-12-08] MEDS: Insulin NovoLIN Regular Correctional Sugar Inj SQ SCH ×4 (00:22→18:06)
[2017-12-08] MEDS: Aluminum/Magnesium/Simethacone Susp 30 ML UDC PO PRN (04:27)
[2017-12-08 06:37] LABS: Chloride 99 meq/L (98-107); Potassium 3.3 meq/L (3.5-5.1); Sodium 135 meq/L (136-145)
[2017-12-08 06:44] LABS: Anion Gap 10 meq/L (5-15); Calcium 7.6 mg/dL (8.5-10.1); Carbon Dioxide 26.4 meq/L (21.0-32.0); Glucose,Random 218 mg/dL (74-106); Magnesium 2.2 mg/dL (1.5-2.5)
[2017-12-08 06:45] LABS: Blood Urea Nitrogen 13 mg/dL (7-18)
[2017-12-08 06:48] LABS: Glomerular Filtration Rate Greater Than 89 mL/min (>89); Phosphorus 2.6 mg/dL (2.5-4.9)
--- NOTE | 2017-12-08 07:28 | GIPROC ---
[facility] [address] [place] [address], [id number] EGD PROCEDURE REPORT EXAM DATE: 12/08/2017 PATIENT NAME: Aby Yadav MR #: [id number] BIRTHDATE: 1955 ATTENDING: Javier Nickerson MD ORDER #: [id number] SPECIAL EDUCATION COORDINATOR: Greta Khalil and Ping Day STATUS: inpatient INDICATIONS: The patient is a 62 yr old female here for an EGD due to abdominal pain, nausea, and vomiting PROCEDURE PERFORMED: EGD, diagnostic MEDICATIONS: None and Per Anesthesia. TOPICAL ANESTHETIC: none CONSENT: The patient understands the risks and benefits of the procedure and understands that these risks include, but are not limited to: sedation, allergic reaction, infection, perforation and/or bleeding. Alternative means of evaluation and treatment include, among others: physical exam, x-rays, and/or surgical intervention. The patient elects to proceed with this endoscopic procedure. medical equipment was checked for proper function. Hand hygiene and appropriate measures for infection prevention was taken. After the risks, benefits and alternatives of the procedure were thoroughly explained, Informed consent was verified, confirmed and timeout was successfully executed by the treatment team. The patient was anesthetized with topical anesthesia and the Pentax [id number] endoscope was introduced through the mouth and advanced to the proximal jejunum. Retroflexion was performed and was normal The gastroscope was then slowly withdrawn and removed. ESOPHAGUS: A 1cm hiatal hernia was noted. The z-line was located 35cm from the incisors. The z-line appeared normal. STOMACH: Patent gastroenteric anastomosis was noted. small quantity of fluid and pill debris was noted. JEJUNUM: The exam showed no abnormalities in the jejunum. ADVERSE EVENTS: There were no complications. IMPRESSIONS: 1. 1cm hiatal hernia 2. The z-line was located 35cm from the incisors 3. Patent gastroenteric anastomosis was noted. small quantity of fluid and pill debris was noted 4. The exam showed no abnormalities in the jejunum 5. Retroflexion was performed and was normal RECOMMENDATIONS: Urecholine PATIENT CONDITION: stable DISPOSITION: Inpatient REPEAT EXAM: Javier Nickerson MD eSigned: Javier Nickerson MD 12/08/2017 7:28 AM cc: PATIENT NAME: Aby Yadav MR#: [id number]
[2017-12-08] MEDS: Pantoprazole Inj 40 MG Vial IV.PUSH SCH ×2 (08:34→20:07)
[2017-12-08] MEDS: SYNTHROID 150 MCG PO SCH (14:11)
[2017-12-08] MEDS: Heparin Central Flush 100 UNIT/ML 5 ML Vial IV.FLUSH SCH (14:11)
[2017-12-08] MEDS ORDERED: Potassium Chlor 20 mEq Premix 20 MEQ/100 ML PIGGYBACK IV.SIG SCH (15:00)
[2017-12-08] MEDS: Potassium Chlor 10 mEq Premix 10 MEQ/100 ML PIGGYBACK IV.SIG SCH ×4 (15:52→17:56)
--- NOTE | 2017-12-08 16:15 | P.PNGS ---
Subjective Patient reports: feels better (s/p EGD today) Physical Exam Vital signs: Vital Signs 12/07/17 20:00 12/08/17 00:00 12/08/17 04:00 Temperature 96.8 F L 97.4 F L 97.4 F L Pulse Rate 89 85 95 H Respiratory Rate 20 20 20 Blood Pressure 115/63 120/62 152/70 H Pulse Oximetry 98 97 98 12/08/17 06:48 12/08/17 07:30 12/08/17 07:45 Temperature 97.4 F L 98.3 F Pulse Rate 95 H 92 H 90 Respiratory Rate 20 14 15 Blood Pressure 152/70 H 125/81 128/82 Pulse Oximetry 98 98 98 12/08/17 08:00 12/08/17 09:00 12/08/17 09:15 Temperature 98.3 F 98.2 F 99.1 F Pulse Rate 84 85 82 Respiratory Rate 16 18 15 Blood Pressure 116/82 127/61 127/59 L Pulse Oximetry 98 100 99 Intake & Output 12/07/17 12/08/17 12/08/17 18:59 06:59 18:59 Intake Total 1360 / 1360 2250 / 2250 100 / 100 Balance 1360 / 1360 2250 / 2250 100 / 100 Weight 92.9 kg Intake: IV 400 / 400 2250 / 2250 Intralipid 20% Inj 250 ML @ 31. 250 / 250 25 mls/hr IV.CENTRAL DAILY@2000 [facility] Rx#:[id number] MVI-12 Inj 10 ML Folvite Inj 1 1999 / 1999 MG In Clinimix E 4.25%/25% Inj 2,000 ML @ 83 mls/hr IV.SIG Q24H [facility] Rx#:[id number] KCl 10 mEq Premix Inj 10 meq In 400 / 400 100 ml @ 100 mls/hr IV.SIG Q1H [facility] Rx#:[id number] Oral 960 / 960 0 / 0 Anesthesia Amount 100 / 100 Other: # Voids 4 3 Date of Last Bowel Movement 12/07/17 12/07/17 # Bowel Movements 3 2 - Constitutional no acute distress - Routine Respiratory Exam Present: CTA bilaterally - Routine Cardiovascular Exam Present: RRR - Routine Abdominal Exam Present: soft, normoactive bowel sounds Assessment and Plan - Assessment (1) Dehydration Code(s): E86.0 - Dehydration Status: Acute Plan: 62 year old female s/p Whipple several weeks ago; back with weight loss; dehydration -s/p EGD, likely delayed gastric emptying, no obstruction -Continue TPN, may need home TPN -not tolerating PO - try low dose erythromycin if not better next few days
[2017-12-08] MEDS: Erythromycin Ethylsuccinate Susp 400 MG/5ML 100 ML Bottle PO SCH (16:48)
[2017-12-08] MEDS: Insulin Detemir Inj 1,000 UNIT/10 ML Vial SQ SCH (20:08)
[2017-12-08] MEDS: [UNRECOGNIZED DRUG - OTHER] IV.SIG SCH (22:31)
[2017-12-08] MEDS: MULTIVITAMIN IV.SIG SCH (22:31)
[2017-12-08] MEDS: FOLIC ACID IV.SIG SCH (22:31)
[2017-12-09] MEDS: Erythromycin Ethylsuccinate Susp 400 MG/5ML 100 ML Bottle PO SCH ×4 (00:04→18:42)
[2017-12-09] MEDS: Insulin NovoLIN Regular Correctional Sugar Inj SQ SCH ×4 (00:07→17:22)
[2017-12-09] MEDS: SYNTHROID 150 MCG PO SCH (06:45)
[2017-12-09] MEDS: Pantoprazole Inj 40 MG Vial IV.PUSH SCH ×2 (08:33→20:32)
[2017-12-09] MEDS: Heparin Central Flush 100 UNIT/ML 5 ML Vial IV.FLUSH SCH (12:09)
--- NOTE | 2017-12-09 12:34 | P.PNGI ---
Subjective Interval history: Patient aware of the negative findings on the upper endoscopy. The gastroenteric anastomosis was patent and there is nothing seen to explain her symptoms. She is aware I suspect this is all gastroparesis. Bethanechol/ Urecholine started as a prokinetic agent. She is still not eating much and there is some nausea and bloating but no vomiting. Physical Exam Vital signs: Vital Signs 12/08/17 16:00 12/08/17 20:00 12/09/17 00:00 Temperature 99.0 F 98.3 F 97.6 F Pulse Rate 84 83 79 Respiratory Rate 20 20 Blood Pressure 131/69 118/58 L 105/55 L Pulse Oximetry 84 L 97 98 12/09/17 07:52 12/09/17 12:10 Temperature 98.2 F 98 F Pulse Rate 87 84 Respiratory Rate 20 20 Blood Pressure 109/56 L 114/58 L Pulse Oximetry 97 97 Intake & Output 12/08/17 12/09/17 12/09/17 18:59 06:59 18:59 Intake Total 2410.2 / 2410.2 470 / 470 Output Total 900 / 900 Balance 1510.2 / 1510.2 470 / 470 Weight 93.7 kg Intake: IV 2310.2 / 2310.2 350 / 350 Intralipid 20% Inj 250 ML @ 31. 250 / 250 25 mls/hr IV.CENTRAL DAILY@2000 [facility] Rx#:[id number] MVI-12 Inj 10 ML Folvite Inj 1 2009.2 / 2009.2 MG In Clinimix E 4.25%/25% Inj 2,000 ML @ 83 mls/hr IV.SIG Q24H [facility] Rx#:[id number] KCl 10 mEq Premix Inj 10 meq In 300 / 300 100 / 100 100 ml @ 100 mls/hr IV.SIG Q1H [facility] Rx#:[id number] Oral 0 / 0 120 / 120 Anesthesia Amount 100 / 100 Output: Urine 900 / 900 Stool 0 / 0 Other: # Voids 3 5 Date of Last Bowel Movement 12/07/17 12/08/17 # Bowel Movements 3 3 - Constitutional no acute distress - Routine HEENT Exam ENT: Present: mucous membranes moist - Routine Respiratory Exam Present: CTA bilaterally - Routine Cardiovascular Exam Present: RRR - Routine Abdominal Exam Present: soft, normoactive bowel sounds. Absent: distended - Routine Extremities Exam Absent: cyanosis - Routine Neurological Exam Present: alert, oriented X3 Results - Labs CBC & Chem 7: 12/06/17 05:10 12/08/17 05:27 Laboratory Results - last 24 hr 12/08/17 12/08/17 12/09/17 12:24 17:58 00:06 POC Glucose 200 H 197 H 181 H 12/09/17 12/09/17 06:52 12:06 POC Glucose 170 H 173 H Assessment and Plan - Attending Attestation 1. Nausea and vomiting. Some nausea, early satiety, bloating and gas. EGD did not show any etiology for her symptoms. Suspect this is all related to gastroparesis. 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 Continue current treatment program 2. Patient has stabilized but she is still not eating much 3. Continue bethanechol/Urecholine as a prokinetic agent25 mg 30 minutes before breakfast, lunch dinner and bedtime 4. If this is not helpful may switch or add on erythromycin 5. Dietitian consulted to help with a gastroparesis diet.
[2017-12-09] MEDS: Aluminum/Magnesium/Simethacone Susp 30 ML UDC PO PRN (12:50)
[2017-12-09] MEDS ORDERED: MULTIVITAMIN IV.SIG SCH (20:00)
[2017-12-09] MEDS ORDERED: FOLIC ACID IV.SIG SCH (20:00)
[2017-12-09] MEDS ORDERED: [UNRECOGNIZED DRUG - OTHER] IV.SIG SCH (20:00)
[2017-12-09] MEDS ORDERED: INSULIN HUMAN REGULAR IV.SIG SCH (20:00)
[2017-12-09] MEDS: Insulin Detemir Inj 1,000 UNIT/10 ML Vial SQ SCH (20:53)
[2017-12-10] MEDS: Insulin NovoLIN Regular Correctional Sugar Inj SQ SCH ×4 (01:02→17:24)
[2017-12-10] MEDS: Erythromycin Ethylsuccinate Susp 400 MG/5ML 100 ML Bottle PO SCH ×3 (01:03→17:26)
[2017-12-10] MEDS: SYNTHROID 150 MCG PO SCH (06:09)
[2017-12-10] MEDS: Pantoprazole Inj 40 MG Vial IV.PUSH SCH ×2 (08:53→22:29)
[2017-12-10] MEDS: Heparin Central Flush 100 UNIT/ML 5 ML Vial IV.FLUSH SCH (08:54)
[2017-12-10 09:51] LABS: Calcium 7.7 mg/dL (8.5-10.1)
[2017-12-10 09:52] LABS: Carbon Dioxide 29.1 meq/L (21.0-32.0)
[2017-12-10 10:02] LABS: Anion Gap 9 meq/L (5-15); Blood Urea Nitrogen 14 mg/dL (7-18); Chloride 101 meq/L (98-107); Glomerular Filtration Rate Greater Than 89 mL/min (>89); Glucose,Random 146 mg/dL (74-106); Potassium 3.9 meq/L (3.5-5.1); Sodium 139 meq/L (136-145)
--- NOTE | 2017-12-10 14:06 | P.PNGI ---
Subjective Interval history: Patient thinks she is improved. Still not eating a lotjust nibbling at her food. Patient is on both bethanechol and erythromycin. Awaiting dietary to see her in regards to gastroparesis diet. No vomiting, fever or chills. Occasional abdominal pain which is not new Physical Exam Vital signs: Vital Signs 12/09/17 16:00 12/09/17 20:00 12/10/17 00:00 Temperature 98.3 F 97.5 F L 97.5 F L Pulse Rate 81 83 79 Respiratory Rate 20 20 20 Blood Pressure 109/58 L 130/59 L 122/58 L Pulse Oximetry 98 98 98 12/10/17 07:33 12/10/17 11:31 Temperature 97.9 F 97.8 F Pulse Rate 84 80 Respiratory Rate 20 20 Blood Pressure 121/59 L 118/58 L Pulse Oximetry 97 97 Intake & Output 12/09/17 12/10/17 12/10/17 18:59 06:59 18:59 Intake Total 1340 / 1340 2740.2 / 2740.2 Output Total 800 / 800 Balance 1340 / 1340 1940.2 / 1940.2 Weight 93.6 kg Intake: IV 2260.2 / 2260.2 Intralipid 20% Inj 250 ML @ 31. 250 / 250 25 mls/hr IV.CENTRAL DAILY@2000 [facility] Rx#:[id number] MVI-12 Inj 10 ML Folvite Inj 1 2009.2 / 2009.2 MG In Clinimix E 4.25%/25% Inj 2,000 ML @ 83 mls/hr IV.SIG Q24H [facility] Rx#:[id number] Oral 1340 / 1340 480 / 480 Output: Urine 800 / 800 Other: # Voids 1 Date of Last Bowel Movement 12/09/17 12/09/17 # Bowel Movements 1 - Constitutional no acute distress - Routine HEENT Exam Head: Present: atraumatic Eye: Absent: conjunctival icterus - Routine Neck Exam Absent: JVD - Routine Cardiovascular Exam Present: RRR - Routine Abdominal Exam Present: soft, normoactive bowel sounds, tenderness Comments: Mild diffuse tenderness but no rebound tenderness - Routine Extremities Exam Absent: edema - Routine Neurological Exam Present: alert, oriented X3 Results - Labs CBC & Chem 7: 12/06/17 05:10 12/10/17 08:45 Laboratory Results - last 24 hr 12/09/17 12/09/17 12/10/17 17:04 20:52 01:02 Sodium Potassium Chloride Carbon Dioxide Anion Gap BUN Creatinine Estimated GFR POC Glucose 160 H 156 H 129 H Random Glucose Calcium 12/10/17 12/10/17 12/10/17 06:07 06:30 08:13 Sodium Not Reportable Potassium Chloride Not Reportable Carbon Dioxide Not Reportable Anion Gap Not Reportable BUN Not Reportable Creatinine Not Reportable Estimated GFR Not Reportable POC Glucose 137 H 150 H Random Glucose Calcium Not Reportable 12/10/17 08:45 Sodium 139 Potassium 3.9 Chloride 101 Carbon Dioxide 29.1 Anion Gap 9 BUN 14 Creatinine 0.51 Estimated GFR Greater than 89 POC Glucose Random Glucose 146 H Calcium 7.7 L Assessment and Plan - Attending Attestation 1. Nausea and vomiting. Improved. I suspect her symptoms are related to gastroparesis. 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 Continue bethanechol and erythromycinthey have different mechanisms of action 2. Patient has stabilized but she is still not eating much. 3. Consider home TPN since we are running out of options in regards to her treatment as an inpatient 4. Awaiting dietary consultation in regards to gastroparesis diet (several small meals a day, avoiding fatty foods and pulpy fruits, etc)
--- NOTE | 2017-12-10 15:05 | P.PNGS ---
Subjective Patient reports: no new complaints (Sitting up in bed says she is not getting her erythromycin but is charted that she is getting she refused to doses.) Interval history: DAILY PROGRESS NOTE FOR SURGICAL ATTENDING, DR. FRANCOISE MARTELL Physical Exam Vital signs: Vital Signs 12/09/17 16:00 12/09/17 20:00 12/10/17 00:00 Temperature 98.3 F 97.5 F L 97.5 F L Pulse Rate 81 83 79 Respiratory Rate 20 20 20 Blood Pressure 109/58 L 130/59 L 122/58 L Pulse Oximetry 98 98 98 12/10/17 07:33 12/10/17 11:31 Temperature 97.9 F 97.8 F Pulse Rate 84 80 Respiratory Rate 20 20 Blood Pressure 121/59 L 118/58 L Pulse Oximetry 97 97 Intake & Output 12/09/17 12/10/17 12/10/17 18:59 06:59 18:59 Intake Total 1340 / 1340 2740.2 / 2740.2 Output Total 800 / 800 Balance 1340 / 1340 1940.2 / 1940.2 Weight 93.6 kg Intake: IV 2260.2 / 2260.2 Intralipid 20% Inj 250 ML @ 31. 250 / 250 25 mls/hr IV.CENTRAL DAILY@2000 [facility] Rx#:[id number] MVI-12 Inj 10 ML Folvite Inj 1 2009.2009.2 MG In Clinimix E 4.25%/25% Inj 2,000 ML @ 83 mls/hr IV.SIG Q24H [facility] Rx#:[id number] Oral 1340 / 1340 480 / 480 Output: Urine 800 / 800 Other: # Voids 1 Date of Last Bowel Movement 12/09/17 12/09/17 # Bowel Movements 1 Narrative: Alert and awake Abd: soft non tender TPN hanging Assessment and Plan - Assessment (1) Dehydration Code(s): E86.0 - Dehydration Status: Acute Plan: 62 year old female s/p Whipple several weeks ago; back with weight loss; dehydration -s/p EGD, likely delayed gastric emptying, no obstruction -Continue TPN, may need home TPN - try low dose erythromycin if not better next few days She says he is not getting erythromycin but it started that she is getting it she refused to doses Reviewed the case with Dr. Tenorio gastroenterology (2) Gastroparesis Code(s): K31.84 - Gastroparesis Status: Chronic - Attending Attestation NOTE FOR SURGICAL ATTENDING, DR. FRANCOISE MARTELL I attest that I had a [id number] encounter with the patient on the same day, and personally performed and documented my assessment and findings in the medical record. The following services were provided during this hospital visit: Chart data review, vital sign assessments/reviewing monitor data Review of consultations notes if present. Medication orders/review and/or management Ordering and/or reviewing lab tests Ordering and/or interpreting/reviewing x-rays and/or diagnostic studies Care of the patient and discussion of the patient with the care team Documentation time To help prompt me to consider important information that might be impacting today's encounter and assessment, Information from prior notes written by myself or my colleagues may have been "brought forward/copy and pasted" into today's note.
[2017-12-10] MEDS: Insulin Detemir Inj 1,000 UNIT/10 ML Vial SQ SCH (21:00)
[2017-12-10] MEDS: MULTIVITAMIN IV.SIG SCH (22:30)
[2017-12-10] MEDS: INSULIN HUMAN REGULAR IV.SIG SCH (22:30)
[2017-12-10] MEDS: FOLIC ACID IV.SIG SCH (22:30)
[2017-12-10] MEDS: [UNRECOGNIZED DRUG - OTHER] IV.SIG SCH (22:30)
[2017-12-11] MEDS: Insulin NovoLIN Regular Correctional Sugar Inj SQ SCH ×4 (00:42→17:10)
[2017-12-11] MEDS: Erythromycin Ethylsuccinate Susp 400 MG/5ML 100 ML Bottle PO SCH ×3 (01:10→17:17)
[2017-12-11] MEDS: SYNTHROID 150 MCG PO SCH (07:26)
[2017-12-11] MEDS: Pantoprazole Inj 40 MG Vial IV.PUSH SCH ×2 (07:55→21:01)
[2017-12-11] MEDS: Heparin Central Flush 100 UNIT/ML 5 ML Vial IV.FLUSH SCH (10:26)
--- NOTE | 2017-12-11 13:57 | P.DIET ---
Nutritional Evaluation Type of nutrition evaluation: follow-up Nutrition consult regarding: TPN/PPN Screening comments: [facility] for gastroparesis diet education received 12/09. Not yet completed. Subjective Subjective Comments: Eating 50-100% Objective - Diagnosis Abdominal Pain - Objective % IBW: 168 (120#) Body Weight Used for Calculations: Upper end of IBW (132#/ 60 kg) Energy Needs - Lower Range (kCal/kg): 25 Energy Needs - Upper Range (kCal/kg): 30 Lower Limit kCal/kg (kCals): 1,500 Upper Limit kCal/kg (kCals): 1,800 Lower Limit Protein Factor (Grams per Kg): 1.0 Upper Limit Protein Factor (Grams per Kg): 1.5 Lower Protein Needs (Protein): 60 Upper Protein Needs (Protein): 90 Dietitian Reviewed in Medical Record: Current diet, Curent medications, Intake & Output, Labs, Medical history, TPN/PPN Diet Order: Soft Objective Comments: s/p whipple several weeks ago Feeding - Current TPN/PPN Current TPN: Clinimix E 08/20 Current TPN/PPN Rate (ml/hr): 83 Amino Acid and Dextrose Current kCals Provided: 1,760 Amino Acid and Dextrose Current Protein Provided: 100 Assessment Assessment: Pt continues at nutritional risk r/t ~7 weeks s/p Whipple admitted with N/V requiring TPN. Pt is now tolerating diet without N/V. Recommend wean TPN per protocol. Labs reviewed. Recommendations: Continue regular diet Wean TPN Diet education pending Dietitian to Monitor: Lab values, Intake & Output, Diet tolerance, TPN/PPN tolerance, Weight change, PO Intake, Medical course
--- NOTE | 2017-12-11 15:51 | P.PNGI ---
Subjective Interval history: Patient feeling a little better although after discussion with her she still not eating much. After eating she has some nausea and bloating. Dietary to see patient regarding gastroparesis diet Physical Exam Vital signs: Vital Signs 12/10/17 20:50 12/11/17 00:00 12/11/17 08:00 Temperature 99.3 F 98.1 F 97.7 F Pulse Rate 86 81 92 H Respiratory Rate 16 18 20 Blood Pressure 116/57 L 112/88 127/61 Pulse Oximetry 98 97 96 12/11/17 12:00 Temperature 98.7 F Pulse Rate 84 Respiratory Rate 19 Blood Pressure 129/61 Pulse Oximetry 96 Intake & Output 12/10/17 12/11/17 12/11/17 18:59 06:59 18:59 Intake Total 960 / 960 250 / 250 1399.4 / 1399.4 Output Total 300 / 300 Balance 960 / 960 250 / 250 1099.4 / 1099.4 Weight 92.6 kg Intake: IV 250 / 250 919.4 / 919.4 Intralipid 20% Inj 250 ML @ 31. 250 / 250 25 mls/hr IV.CENTRAL DAILY@1999 [facility] Rx#:[id number] MVI-12 Inj 10 ML Folvite Inj 1 919.4 / 919.4 MG NovoLIN R Inj 20 UNITS In TPN Fluid 2 Liter 2,000 ML @ 83 mls/hr IV.SIG DAILY@1999 [facility] Rx#:[id number] Oral 960 / 960 480 / 480 Output: Urine 300 / 300 Other: # Voids 4 4 Date of Last Bowel Movement 12/09/17 # Bowel Movements 1 3 - Constitutional no acute distress - Routine Neck Exam Present: supple - Routine Abdominal Exam Present: soft, normoactive bowel sounds. Absent: tenderness, distended - Routine Extremities Exam Absent: cyanosis - Routine Neurological Exam Present: alert, oriented X3 Results - Labs CBC & Chem 7: 12/06/17 05:10 12/10/17 08:45 Laboratory Results - last 24 hr 12/10/17 12/10/17 12/11/17 17:24 22:40 00:39 POC Glucose 136 H 118 H 132 H 12/11/17 12/11/17 12/11/17 06:41 07:53 11:57 POC Glucose 129 H 122 H 128 H Assessment and Plan - Attending Attestation 1. Nausea and vomiting. I suspect her symptoms are related to gastroparesis. Patient is on bethanechol as well as erythromycin and TPN. 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 Continue bethanechol and erythromycinthey have different mechanisms of action 2. she is still not eating much which is worrisome -- she may need to be readmitted if she fails as an outpatient 3. Consider home TPN until her stomach can recover. Occasionally feedings directly into the jejunumelemental dietis helpful but this would require a surgical place J-tube 4. Awaiting dietary consultation in regards to gastroparesis diet (several small meals a day, avoiding fatty foods and pulpy fruits, etc) 5. Little otherwise to offer at present. Will sign off and follow her from a far
--- NOTE | 2017-12-11 17:34 | P.PNGS ---
Subjective Interval history: No issues over the weekend Still not eating much Physical Exam Vital signs: Vital Signs 12/10/17 20:50 12/11/17 00:00 12/11/17 08:00 Temperature 99.3 F 98.1 F 97.7 F Pulse Rate 86 81 92 H Respiratory Rate 16 18 20 Blood Pressure 116/57 L 112/88 127/61 Pulse Oximetry 98 97 96 12/11/17 12:00 12/11/17 16:00 Temperature 98.7 F 98.2 F Pulse Rate 84 86 Respiratory Rate 19 20 Blood Pressure 129/61 129/59 L Pulse Oximetry 96 98 Intake & Output 12/10/17 12/11/17 12/11/17 18:59 06:59 18:59 Intake Total 960 / 960 250 / 250 1639.4 / 1639.4 Output Total 300 / 300 Balance 960 / 960 250 / 250 1339.4 / 1339.4 Weight 92.6 kg Intake: IV 250 / 250 919.4 / 919.4 Intralipid 20% Inj 250 ML @ 31. 250 / 250 25 mls/hr IV.CENTRAL DAILY@1999 [facility] Rx#:[id number] MVI-12 Inj 10 ML Folvite Inj 1 919.4 / 919.4 MG NovoLIN R Inj 20 UNITS In TPN Fluid 2 Liter 2,000 ML @ 83 mls/hr IV.SIG DAILY@1999 [facility] Rx#:[id number] Oral 960 / 960 720 / 720 Output: Urine 300 / 300 Other: # Voids 4 4 Date of Last Bowel Movement 12/09/17 # Bowel Movements 1 3 Narrative: Alert and awake Abd: soft non tender Assessment and Plan - Assessment (1) Dehydration Code(s): E86.0 - Dehydration Status: Acute Plan: 62 year old female s/p Whipple several weeks ago; back with weight loss; dehydration -s/p EGD, likely delayed gastric emptying, no obstruction -Continue TPN, may need home TPN -Continue erythromycin -Dietary consult for gastroparesis diet (2) Gastroparesis Code(s): K31.84 - Gastroparesis Status: Chronic
[2017-12-11] MEDS: [UNRECOGNIZED DRUG - OTHER] IV.SIG SCH (20:59)
[2017-12-11] MEDS: INSULIN HUMAN REGULAR IV.SIG SCH (20:59)
[2017-12-11] MEDS: MULTIVITAMIN IV.SIG SCH (20:59)
[2017-12-11] MEDS: FOLIC ACID IV.SIG SCH (20:59)
[2017-12-11] MEDS: Insulin Detemir Inj 1,000 UNIT/10 ML Vial SQ SCH (21:00)
[2017-12-12] MEDS: Erythromycin Ethylsuccinate Susp 400 MG/5ML 100 ML Bottle PO SCH ×3 (00:40→16:10)
[2017-12-12] MEDS: Insulin NovoLIN Regular Correctional Sugar Inj SQ SCH ×4 (07:49→19:10)
[2017-12-12] MEDS: SYNTHROID 150 MCG PO SCH (08:01)
[2017-12-12] MEDS: Heparin Central Flush 100 UNIT/ML 5 ML Vial IV.FLUSH SCH (09:03)
[2017-12-12] MEDS: Pantoprazole Inj 40 MG Vial IV.PUSH SCH ×2 (09:04→20:50)
--- NOTE | 2017-12-12 13:43 | P.PNGS ---
Subjective Patient reports: feels better Physical Exam Vital signs: Vital Signs 12/11/17 16:00 12/11/17 20:00 12/12/17 00:00 Temperature 98.2 F 98.2 F 98.1 F Pulse Rate 86 86 92 H Respiratory Rate 20 18 20 Blood Pressure 129/59 L 124/61 134/61 Pulse Oximetry 98 96 96 12/12/17 08:00 12/12/17 12:00 Temperature 97.5 F L 98.7 F Pulse Rate 85 77 Respiratory Rate 20 22 Blood Pressure 130/62 Pulse Oximetry 97 Intake & Output 12/11/17 12/12/17 12/12/17 18:59 06:59 18:59 Intake Total 1639.4 / 1639.4 1830 / 1830 2740.4 / 2740.4 Output Total 300 / 300 300 / 300 Balance 1339.4 / 1339.4 1830 / 1830 2440.4 / 2440.4 Weight 91.8 kg Intake: IV 919.4 / 919.4 870 / 870 2260.4 / 2260.4 Intralipid 20% Inj 250 ML @ 31. 250 / 250 25 mls/hr IV.CENTRAL DAILY@1999 [facility] Rx#:[id number] MVI-12 Inj 10 ML Folvite Inj 1 919.4 / 919.4 870 / 870 MG NovoLIN R Inj 20 UNITS In TPN Fluid 2 Liter 2,000 ML @ 83 mls/hr IV.SIG DAILY@1999 [facility] Rx#:[id number] Oral 720 / 720 960 / 960 480 / 480 Output: Urine 300 / 300 300 / 300 Other: # Voids 4 Date of Last Bowel Movement 12/09/17 # Bowel Movements 2 - Constitutional no acute distress - Routine Abdominal Exam Present: soft Comments: inc well healed Assessment and Plan - Assessment (1) Dehydration Code(s): E86.0 - Dehydration Status: Acute Plan: 62 year old female s/p Whipple several weeks ago; back with weight loss; dehydration -s/p EGD, likely delayed gastric emptying, no obstruction -Continue TPN, may need home TPN next week -Continue erythromycin -Dietary consult for gastroparesis diet - eating some food, continue calorie count (2) Gastroparesis Code(s): K31.84 - Gastroparesis Status: Chronic
--- NOTE | 2017-12-12 14:07 | P.DIET ---
Nutritional Evaluation Type of nutrition evaluation: follow-up Nutrition consult regarding: TPN/PPN Screening comments: [facility] for gastroparesis diet education received 12/09/ completed 12/12/17 Subjective Subjective Comments: eating very small amounts Objective - Diagnosis Abdominal Pain - Objective % IBW: 168 (120#) Body Weight Used for Calculations: Upper end of IBW (132#/ 60 kg) Energy Needs - Lower Range (kCal/kg): 25 Energy Needs - Upper Range (kCal/kg): 30 Lower Limit kCal/kg (kCals): 1,500 Upper Limit kCal/kg (kCals): 1,800 Lower Limit Protein Factor (Grams per Kg): 1.0 Upper Limit Protein Factor (Grams per Kg): 1.5 Lower Protein Needs (Protein): 60 Upper Protein Needs (Protein): 90 Dietitian Reviewed in Medical Record: Current diet, Curent medications, Intake & Output, Labs, Medical history, TPN/PPN Diet Order: Soft Objective Comments: s/p whipple several weeks ago Feeding - Current TPN/PPN Current TPN: Clinimix E 08/20 Current TPN/PPN Rate (ml/hr): 83 Amino Acid and Dextrose Current kCals Provided: 1,760 Amino Acid and Dextrose Current Protein Provided: 100 Current Lipid Concentration: 20% Current Lipids Rate: 250 mls daily over 8 hours 500 ml Daily: No (250ml) Current kCal Provided by TPN/PPN: 2,540 Carbohydrate Load (mg/kg/min): 4 Assessment Assessment: Per patient and she is eating very small amounts. I have educated her on the gastroparesis diet. I have encouraged her to follow the given eating plan starting with more chopped/ground foods for easier digestion and increase consistency slowly as tolerated. I have also recommended Ensure TID to be consumed between meals. Monitor BGlu. Continue TPN at this time as pts. PO intake is inadequate. Recommendations: 1. Monitor BGlu. 2. Continue TPN at this time as pts. PO intake is inadequate. Dietitian to Monitor: Lab values, Intake & Output, Diet tolerance, TPN/PPN tolerance, Weight change, PO Intake, Medical course
[2017-12-12] MEDS: FOLIC ACID IV.SIG SCH (20:47)
[2017-12-12] MEDS: [UNRECOGNIZED DRUG - OTHER] IV.SIG SCH (20:47)
[2017-12-12] MEDS: INSULIN HUMAN REGULAR IV.SIG SCH (20:47)
[2017-12-12] MEDS: MULTIVITAMIN IV.SIG SCH (20:47)
[2017-12-12] MEDS: Insulin Detemir Inj 1,000 UNIT/10 ML Vial SQ SCH (20:50)
[2017-12-13] MEDS: Insulin NovoLIN Regular Correctional Sugar Inj SQ SCH ×4 (00:54→17:57)
[2017-12-13] MEDS: Erythromycin Ethylsuccinate Susp 400 MG/5ML 100 ML Bottle PO SCH ×3 (00:55→17:27)
[2017-12-13] MEDS: SYNTHROID 150 MCG PO SCH (06:15)
[2017-12-13 08:50] LABS: Baso # (Auto) 0.1 th/mm3 (0.0-0.2); Baso % (Auto) 0.8 % (0.0-2.0); Eos # (Auto) 0.2 th/mm3 (0.0-0.4); Eos % (Auto) 3.4 % (0.0-4.0); Hemoglobin 10.8 gm/dL (11.6-15.3); Lymph % (Auto) 31.5 % (9.0-44.0); Mean Corpuscular HGB Conc 33.8 % (32.0-36.0); Mean Corpuscular Hemoglobin 27.1 pg (27.0-34.0); Mean Corpuscular Volume 80.1 fL (80.0-100.0); Mono # (Auto) 0.3 th/mm3 (0.0-0.9); Mono % (Auto) 4.5 % (0.0-8.0); Neut # (Auto) 3.7 th/mm3 (1.8-7.7); Neut % (Auto) 59.8 % (16.0-70.0); Platelet Count 128 th/mm3 (150-450); Red Blood Count 3.99 mil/mm3 (4.00-5.30); Red Cell Distribution Width 16.2 % (11.6-17.2); White Blood Count 6.3 th/mm3 (4.0-11.0)
[2017-12-13] MEDS: Pantoprazole Inj 40 MG Vial IV.PUSH SCH ×2 (08:54→20:57)
[2017-12-13] MEDS: Heparin Central Flush 100 UNIT/ML 5 ML Vial IV.FLUSH SCH (08:55)
[2017-12-13 09:12] LABS: Chloride 100 meq/L (98-107); Sodium 136 meq/L (136-145)
[2017-12-13 09:15] LABS: Anion Gap 8 meq/L (5-15); Blood Urea Nitrogen 19 mg/dL (7-18); Carbon Dioxide 27.6 meq/L (21.0-32.0); Glucose,Random 139 mg/dL (74-106); Magnesium 2.4 mg/dL (1.5-2.5)
[2017-12-13 09:18] LABS: Glomerular Filtration Rate Greater Than 89 mL/min (>89)
--- NOTE | 2017-12-13 10:49 | P.PNGS ---
Subjective Interval history: Had periods of chills and the hot last night Nausea most of the night Physical Exam Vital signs: Vital Signs 12/12/17 12:00 12/12/17 16:00 12/12/17 20:00 Temperature 98.7 F 97.6 F Pulse Rate 77 86 82 Respiratory Rate 22 20 20 Blood Pressure 130/62 132/60 123/58 L Pulse Oximetry 97 98 97 12/13/17 00:00 12/13/17 08:00 12/13/17 10:16 Temperature 97.6 F 97.7 F Pulse Rate 88 88 Respiratory Rate 20 20 20 Blood Pressure 131/63 127/61 Pulse Oximetry 98 97 Intake & Output 12/12/17 12/13/17 12/13/17 18:59 06:59 18:59 Intake Total 4496.4 / 4496.4 2970 / 2970 100 / 100 Output Total 1001 / 1001 1000 / 1000 Balance 3495.4 / 3495.4 1970 / 1970 100 / 100 Weight 91.9 kg Intake: IV 2260.4 / 2260.4 2250 / 2250 100 / 100 Intralipid 20% Inj 250 ML @ 31. 250 / 250 250 / 250 25 mls/hr IV.CENTRAL DAILY@1999 [facility] Rx#:[id number] Ofirmev Inj 1,000 mg In 100 ml 100 / 100 @ 400 mls/hr IV.SIG Q6H [facility] Rx# :[id number] MVI-12 Inj 10 ML Folvite Inj 1 1999 / 1999 [facility] NovoLIN R Inj 20 UNITS In TPN Fluid 2 Liter 2,000 ML @ 83 mls/hr IV.SIG DAILY@1999 [facility] Rx#:[id number] Oral 1240 / 1240 720 / 720 Other 996 / 996 Output: Urine 1000 / 1000 1000 / 1000 Stool Other: # Voids 3 Date of Last Bowel Movement 12/12/17 12/12/17 12/13/17 # Bowel Movements 2 Narrative: Alert and awake sitting up in bed Abd: soft RIGHT arm PICC in place with TPN Assessment and Plan - Assessment (1) Dehydration Code(s): E86.0 - Dehydration Status: Acute Plan: 62 year old female s/p Whipple several weeks ago; back with weight loss; dehydration -s/p EGD, likely delayed gastric emptying, no obstruction -Continue TPN, may need home TPN next week -Continue erythromycin -Continue gastroparesis diet -Encouraged PO intake as tolerated (2) Gastroparesis Code(s): K31.84 - Gastroparesis Status: Chronic
[2017-12-13] MEDS: INSULIN HUMAN REGULAR IV.SIG SCH (20:59)
[2017-12-13] MEDS: FOLIC ACID IV.SIG SCH (20:59)
[2017-12-13] MEDS: MULTIVITAMIN IV.SIG SCH (20:59)
[2017-12-13] MEDS: [UNRECOGNIZED DRUG - OTHER] IV.SIG SCH (20:59)
[2017-12-13] MEDS: Insulin Detemir Inj 1,000 UNIT/10 ML Vial SQ SCH (21:00)
[2017-12-14] MEDS: Insulin NovoLIN Regular Correctional Sugar Inj SQ SCH ×4 (00:31→17:02)
[2017-12-14] MEDS: Erythromycin Ethylsuccinate Susp 400 MG/5ML 100 ML Bottle PO SCH ×4 (00:31→23:44)
[2017-12-14] MEDS: Aluminum/Magnesium/Simethacone Susp 30 ML UDC PO PRN ×2 (05:05→20:18)
[2017-12-14] MEDS: SYNTHROID 150 MCG PO SCH (06:25)
[2017-12-14] MEDS: Pantoprazole Inj 40 MG Vial IV.PUSH SCH ×2 (08:00→20:18)
[2017-12-14] MEDS: Heparin Central Flush 100 UNIT/ML 5 ML Vial IV.FLUSH SCH (08:04)
--- NOTE | 2017-12-14 13:56 | P.PNGS ---
Subjective Interval history: feeling better today although still not able to eat much Physical Exam Vital signs: Vital Signs 12/13/17 15:50 12/13/17 16:00 12/13/17 20:00 Temperature 98.1 F 97.8 F Pulse Rate 81 78 Respiratory Rate 20 20 16 Blood Pressure 133/67 135/64 Pulse Oximetry 99 99 12/14/17 00:00 12/14/17 08:00 12/14/17 12:00 Temperature 96.3 F L 98.7 F 97.5 F L Pulse Rate 82 83 82 Respiratory Rate 16 19 20 Blood Pressure 120/61 173/67 H 140/68 Pulse Oximetry 99 98 96 Intake & Output 12/13/17 12/14/17 12/14/17 18:59 06:59 18:59 Intake Total 200 / 200 2250 / 2250 540 / 540 Output Total 301 / 301 Balance 200 / 200 2250 / 2250 239 / 239 Weight 91.9 kg Intake: IV 200 / 200 2250 / 2250 Intralipid 20% Inj 250 ML @ 31. 250 / 250 25 mls/hr IV.CENTRAL DAILY@1999 [facility] Rx#:[id number] Ofirmev Inj 1,000 mg In 100 ml 200 / 200 @ 400 mls/hr IV.SIG Q6H [facility] Rx# :[id number] MVI-12 Inj 10 ML Folvite Inj 1 1999 / 1999 MG NovoLIN R Inj 20 UNITS In TPN Fluid 2 Liter 2,000 ML @ 83 mls/hr IV.SIG DAILY@1999 [facility] Rx#:[id number] Oral 540 / 540 Output: Urine 300 / 300 Stool 1 / Other: # Voids 1 Date of Last Bowel Movement 12/13/17 12/13/17 12/14/17 # Bowel Movements 1 Narrative: Alert and awake Abd: soft RIGHT arm PICC in place Assessment and Plan - Assessment (1) Dehydration Code(s): E86.0 - Dehydration Status: Acute Plan: 62 year old female s/p Whipple several weeks ago; back with weight loss; dehydration -s/p EGD, likely delayed gastric emptying, no obstruction -Continue TPN, may need home TPN next week -Continue erythromycin -Continue gastroparesis diet -Encouraged PO intake as tolerated -OOB (2) Gastroparesis Code(s): K31.84 - Gastroparesis Status: Chronic - Attending Attestation The exam, history, and the medical decision-making described in the above note were completed with the assistance of the mid-level provider. I reviewed and agree with the findings presented. I attest that I had a [id number] encounter with the patient on the same day, and personally performed and documented my assessment and findings in the medical record. tolerating some PO but minimal abdomen soft, non-tender, non-distended will need DC with TPN next week continue gastroparesis diet and erythromycin
[2017-12-14] MEDS: Insulin Detemir Inj 1,000 UNIT/10 ML Vial SQ SCH (20:34)
[2017-12-14] MEDS: [UNRECOGNIZED DRUG - OTHER] IV.SIG SCH (20:58)
[2017-12-14] MEDS: FOLIC ACID IV.SIG SCH (20:58)
[2017-12-14] MEDS: MULTIVITAMIN IV.SIG SCH (20:58)
[2017-12-14] MEDS: INSULIN HUMAN REGULAR IV.SIG SCH (20:58)
[2017-12-15] MEDS: Insulin NovoLIN Regular Correctional Sugar Inj SQ SCH ×4 (00:59→20:22)
[2017-12-15] MEDS: Aluminum/Magnesium/Simethacone Susp 30 ML UDC PO PRN ×2 (06:00→16:54)
[2017-12-15] MEDS: SYNTHROID 150 MCG PO SCH (06:01)
[2017-12-15] MEDS: Pantoprazole Inj 40 MG Vial IV.PUSH SCH ×2 (08:35→20:21)
[2017-12-15] MEDS: Erythromycin Ethylsuccinate Susp 400 MG/5ML 100 ML Bottle PO SCH ×3 (08:36→23:02)
[2017-12-15] MEDS: Heparin Central Flush 100 UNIT/ML 5 ML Vial IV.FLUSH SCH (08:38)
--- NOTE | 2017-12-15 16:09 | P.PNGS ---
Subjective Interval history: Patient seen about 0600 Doing well; no complaints Slept good last night Physical Exam Vital signs: Vital Signs 12/14/17 20:00 12/15/17 00:00 12/15/17 08:00 Temperature 98.0 F 97.7 F 97.8 F Pulse Rate 93 H 93 H 86 Respiratory Rate 20 20 21 Blood Pressure 120/59 L 120/65 120/59 L Pulse Oximetry 96 97 97 12/15/17 12:00 12/15/17 15:57 Temperature 97.6 F 98.7 F Pulse Rate 86 86 Respiratory Rate 19 22 Blood Pressure 126/58 L 126/60 Pulse Oximetry 99 97 Intake & Output 12/14/17 12/15/17 12/15/17 18:59 06:59 18:59 Intake Total 840 / 840 2740.4 / 2740.4 540 / 540 Output Total 501 / 501 402 / 402 Balance 339 / 339 2740.4 / 2740.4 138 / 138 Weight 91.9 kg 92 kg Intake: IV 2260.4 / 2260.4 Intralipid 20% Inj 250 ML @ 31. 250 / 250 25 mls/hr IV.CENTRAL DAILY@1999 [facility] Rx#:[id number] MVI-12 Inj 10 ML Folvite Inj 1 2009.4 / 2010.4 MG NovoLIN R Inj 20 UNITS In TPN Fluid 2 Liter 2,000 ML @ 83 mls/hr IV.SIG DAILY@1999 [facility] Rx#:[id number] Oral 840 / 840 480 / 480 540 / 540 Output: Urine 500 / 500 400 / 400 Stool / 2 / 2 Other: # Voids 3 3 Date of Last Bowel Movement 12/14/17 12/15/17 # Bowel Movements 2 Narrative: Alert and awake Abd: soft non tender RIGHT PICC in place Assessment and Plan - Assessment (1) Dehydration Code(s): E86.0 - Dehydration Status: Acute Plan: 62 year old female s/p Whipple several weeks ago; back with weight loss; dehydration -s/p EGD, likely delayed gastric emptying, no obstruction -Continue TPN -Continue erythromycin -Continue gastroparesis diet -Encouraged PO intake as tolerated -OOB -Likely home next week with home TPN (2) Gastroparesis Code(s): K31.84 - Gastroparesis Status: Chronic
--- NOTE | 2017-12-15 16:12 | P.HPGS ---
History of Present Illness Service: General Surgery Primary Care Physician: Celina Carrasquillo MD Chief Complaint: Unable to tolerate PO History of Present Illness: This is a 62 year old patient well known to our service after having a a Whipple procedure done on October 18, 2017. She was sent home on a soft diet. She has been unable to tolerate the diet. She is unable to stay hydrated. She has been admitted for IVF and nutrition. - Diagnosis (1) Dehydration (2) Gastroparesis Inpatient Certification: I certify that the inpatient services were ordered in accordance with Medicare regulations governing the order. This includes certification that hospital inpatient services are reasonable and necessary and in the case of services not specified as inpatient-only under 42 CFR 419.22(n), that they are appropriately provided as inpatient services in accordance to with the 2-midnight benchmark under 43 CFR 412.3(e) Estimated Total Length of Stay (Days): 10 Plans for Post Hospital Care: Home health Review of Systems All other systems reviewed negative except as stated in HPI [facility] - History History Provided By: Patient - Medical History Medical History: Medical History (Last Reviewed 12/15/17 @ 16:10 by TAMIA Moreno) Abdominal pain Anxiety Bursitis of right shoulder Bursitis of shoulder, left Cholecystectomy planned Dry eyes Fibromyalgia GERD (gastroesophageal reflux disease) H/O acute pancreatitis H/O endoscopy H/O: hysterectomy High cholesterol History of anesthesia reaction Pancreatic abnormality Seasonal allergies Thyroid disease Wears glasses - Surgical History Surgical History: Surgical History (Last Reviewed 12/15/17 @ 16:11 by TAMIA Moreno) H/O arthroscopy of shoulder H/O thyroidectomy History of carpal tunnel release History of partial hysterectomy - Tobacco History Second Hand Smoke Exposure: No Tobacco Use In Past 30 Days: No Smoking Status: Former smoker Tobacco Type: Cigarettes Years Smoked: 20 Number of Pack Years (if former smoker): 20 - Alcohol History How Often Do You Have a Drink Containing Alcohol: Never - Substance Use History Substance History: No History of Abuse Medications and Allergies Allergies Allergy/AdvReac Type Severity Reaction Status Date / Time amitriptyline Allergy Severe Anaphylaxis Verified 10/16/17 14:14 cefaclor Allergy Severe Anaphylaxis Verified 10/16/17 14:14 doxepin Allergy Severe Anaphylaxis Verified 10/16/17 14:14 gold sodium thiomalate Allergy Severe Anaphylaxis Verified 10/16/17 13:49 Influenza Virus Vaccines Allergy Severe Anaphylaxis Verified 10/16/17 14:14 levothyroxine Allergy Severe Anaphylaxis Verified 10/16/17 14:14 metoclopramide [From Reglan] Allergy Severe Hives Verified 12/02/17 08:05 morphine Allergy Severe Hallucinati Verified 06/02/17 08:11 ons nickel Allergy Severe Anaphylaxis Verified 10/16/17 14:14 penicillin G Allergy Severe Anaphylaxis Verified 10/16/17 14:14 trazodone Allergy Severe Anaphylaxis Verified 10/16/17 14:14 metformin AdvReac Severe Anaphylaxis Verified 10/16/17 14:14 p-phenylenediamine Allergy Severe Anaphylaxis Uncoded 10/16/17 14:14 Home Medications Medication Instructions Recorded Confirmed Type acetaminophen [Tylenol] 325 mg PO TID PRN 10/16/17 10/18/17 History cetirizine [Zyrtec] 10 mg PO DAILY 10/16/17 10/18/17 History cholecalciferol (vitamin D3) 5,000 unit PO DIRECTED 10/16/17 10/18/17 History [Vitamin D3] cholestyramine (with sugar) 4 g PO TID 10/16/17 10/18/17 History diphenhydramine HCl [Children's 12.5 mg PO TID PRN 10/16/17 10/18/17 History Allergy (diphenhyd)] docusate sodium 100 mg PO DAILY PRN 10/16/17 10/18/17 History ergocalciferol (vitamin D2) 50,000 unit PO 3XW 10/16/17 10/18/17 History [Vitamin D2] hydroxyzine HCl 25 mg PO QID PRN 10/16/17 10/18/17 History levothyroxine [Synthroid] 75 mcg PO WE 10/16/17 10/18/17 History levothyroxine [Synthroid] 150 mcg PO DIRECTED 10/16/17 10/18/17 History loratadine [Claritin] 10 mg PO HS 10/16/17 10/18/17 History lorazepam 1 mg PO QID PRN 10/16/17 10/18/17 History nystatin 1 applic TOPICAL BID 10/16/17 10/18/17 History omega 7-bis-vsl-fish oil [Fish Oil] 1 cap PO DAILY 10/16/17 10/18/17 History omeprazole 20 mg PO DAILY 10/16/17 10/18/17 History zolpidem [Ambien] 1 tab PO HS 10/16/17 10/18/17 History Active Medications: Active Medications Al Hydrox/Mg Hydrox/Simethicone (Mag-Al Plus Susp Liq) 30 ml PO Q6H PRN PRN Reason: HEARTBURN Last Admin: 12/15/17 06:00 Dose: 30 ml Bethanechol Chloride (Urecholine) 25 mg PO QID [facility] Last Admin: 12/15/17 14:30 Dose: Not Given Dextrose (D50w Vial) 50 ml IV.PUSH UNSCH PRN PRN Reason: PER HYPOGLYCEMIA PROTOCOL Diphenhydramine HCl (Benadryl Inj) 25 mg IV.PUSH Q6H PRN PRN Reason: ITCHING Last Admin: 12/15/17 12:43 Dose: 25 mg Erythromycin Ethylsuccinate (Ees 400 Mg/5 Ml Liq) 400 mg PO Q8H [facility] Last Admin: 12/15/17 08:36 Dose: 400 mg Glucagon (Glucagon Inj) 1 mg OTHER PRN PRN PRN Reason: for Hypoglycemia Protocol Heparin Sodium (Porcine) (Heparin Central Flush) 0 unit IV.FLUSH DAILY [facility] Last Admin: 12/15/17 08:38 Dose: 500 unit Heparin Sodium (Porcine) (Heparin Central Flush) 0 unit IV.FLUSH PRN PRN PRN Reason: Flush PICC Line Last Admin: 12/15/17 08:38 Dose: 500 unit Fat Emulsion Intravenous (Intralipid 20% Inj) 250 mls @ 31.25 mls/hr IV.CENTRAL DAILY@1999 [facility] Last Infusion: 12/15/17 06:27 Dose: Infused Multivitamins 10 ml/ Folic Acid 1 mg/ Insulin Human Regular 20 units/ Amino Acids/Electrolytes/Dextrose 2,010.4 mls @ 83 mls/hr IV.SIG DAILY@1999 [facility] Last Admin: 12/14/17 20:58 Dose: 83 mls/hr Acetaminophen (Ofirmev Inj) 1,000 mg in 100 mls @ 400 mls/hr IV.SIG Q8H PRN PRN Reason: HEADACHE\PAIN Insulin Detemir (Levemir Inj) 10 unit SQ [facility] Last Admin: 12/14/17 20:34 Dose: 10 unit Insulin Human Regular (Novolin R Correctional Sugar Inj) 0 units SQ Q6HR [facility]; Protocol Last Admin: 12/15/17 14:30 Dose: Not Given Lorazepam (Ativan Inj) 0.5 mg IV.PUSH Q6H PRN PRN Reason: ANXIETY/SLEEP Last Admin: 12/14/17 20:34 Dose: 0.5 mg Metoclopramide HCl (Reglan Inj) 10 mg IV.PUSH Q12HR [facility] Last Admin: 12/05/17 17:16 Dose: Not Given Ondansetron HCl (Zofran Inj) 4 mg IV.PUSH Q4H PRN PRN Reason: NAUSEA Last Admin: 12/15/17 08:36 Dose: 4 mg Pantoprazole Sodium (Protonix Inj) 40 mg IV.PUSH Q12H [facility] Last Admin: 12/15/17 08:35 Dose: 40 mg Pt Own: Synthroid (150mcg) 0 each PO SuMoTuThFrSa@0600 [facility] Last Admin: 12/15/17 06:01 Dose: 1 each Pt Own: Synthroid (150 Mcg 1/2 Tablet) 0 each PO We@0600 [facility] Last Admin: 12/13/17 06:15 Dose: Not Given Sodium Chloride (Ns Flush) 0 ml IV.FLUSH DAILY [facility] Last Admin: 12/15/17 08:39 Dose: 2 ml Sodium Chloride (Ns Flush) 0 ml IV.FLUSH PRN PRN PRN Reason: FLUSH AFTER USING IV ACCESS Last Admin: 12/15/17 08:39 Dose: 5 ml Sodium Chloride (Ns Flush) 0 ml IV.FLUSH PRN PRN PRN Reason: Flush After Blood Draws Exam Vital signs: Vital Signs 12/14/17 20:00 12/15/17 00:00 12/15/17 08:00 Temperature 98.0 F 97.7 F 97.8 F Pulse Rate 93 H 93 H 86 Respiratory Rate 20 20 21 Blood Pressure 120/59 L 120/65 120/59 L Pulse Oximetry 96 97 97 12/15/17 12:00 12/15/17 15:57 Temperature 97.6 F 98.7 F Pulse Rate 86 86 Respiratory Rate 19 22 Blood Pressure 126/58 L 126/60 Pulse Oximetry 99 97 Intake & Output 09/13/18 09/14/18 09/14/18 18:59 06:59 18:59 Intake Total 840 / 840 2740.4 / 2740.4 540 / 540 Output Total 501 / 501 402 / 402 Balance 339 / 339 2740.4 / 2740.4 138 / 138 Weight 91.9 kg 92 kg Intake: IV 2260.4 / 2260.4 Intralipid 20% Inj 250 ML @ 31. 250 / 250 25 mls/hr IV.CENTRAL DAILY@1999 [facility] Rx#:[id number] MVI-12 Inj 10 ML Folvite Inj 1 2009.4 / 2009.4 MG NovoLIN R Inj 20 UNITS In TPN Fluid 2 Liter 2,000 ML @ 83 mls/hr IV.SIG DAILY@1999 [facility] Rx#:[id number] Oral 840 / 840 480 / 480 540 / 540 Output: Urine 500 / 500 400 / 400 Stool 2 / Other: # Voids 3 3 Date of Last Bowel Movement 12/14/17 12/15/17 # Bowel Movements 2 Narrative: GENERAL: 62 year old female resting in bed in no acute distress. SKIN: Warm and dry. HEAD: Atraumatic. Normocephalic. EYES: Pupils equal and round. No scleral icterus. No injection or drainage. ENT: No nasal bleeding or discharge. Mucous membranes pink and moist. NECK: Trachea midline. CARDIOVASCULAR: Regular rate and rhythm. RESPIRATORY: No accessory muscle use. Clear to auscultation. Breath sounds equal bilaterally. GASTROINTESTINAL: Abdomen soft, non-tender, nondistended. Well healed incisions. Her tubes have all been removed. MUSCULOSKELETAL: Extremities without clubbing, cyanosis, or edema. No obvious deformities. NEUROLOGICAL: Awake and alert. No obvious cranial nerve deficits. Motor grossly within normal limits. Five out of 5 muscle strength in the arms and legs. Normal speech. PSYCHIATRIC: Appropriate mood and affect; insight and judgment normal. Results - Labs 12/13/17 08:20 12/13/17 08:20 Caprini VTE Risk Assessment Caprini VTE Risk Assessment: No/Low Risk (score <= 1) Caprini Risk Assessment Model: Point Value = 1 Point Value = 2 Point Value = 3 Point Value = 5 Age 41-60 Minor surgery BMI > 25 kg/m2 Swollen legs Varicose veins or History of unexplained or recurrent spontaneous Oral contraceptives or hormone replacement Sepsis (< 1 month) Serious lung disease, including pneumonia (< 1 month) Abnormal pulmonary function Acute myocardial infarction Congestive heart failure (< 1 month) History of inflammatory bowel disease Medical patient at bed rest Age 61-74 Arthroscopic surgery Major open surgery (> 45 min) Laparoscopic surgery (> 45 min) Malignancy Confined to bed (> 72 hours) Immobilizing plaster cast Central venous access Age >= 75 History of VTE Family history of VTE Factor V Leiden Prothrombin [id number] Lupus anticoagulant Anticardiolipin antibodies Elevated serum homocysteine Heparin-induced thrombocytopenia Other congenital or acquired thrombophilia Stroke (< 1 month) Elective arthroplasty Hip, pelvis, or leg fracture Acute spinal cord injury (< 1 month) Prophylaxis Regimen: Total Risk Factor Score Risk Level Prophylaxis Regimen 0-1 Low Early ambulation 2 Moderate Order ONE of the following: *Sequential Compression Device (SCD) *Heparin 5000 units SQ BID 3-4 Higher Order ONE of the following medications: *Heparin 5000 units SQ TID *Enoxaparin/Lovenox 40 mg SQ daily (WT < 150 kg, CrCl > 30 mL/min) *Enoxaparin/Lovenox 30 mg SQ daily (WT < 150 kg, CrCl > 10-29 mL/min) *Enoxaparin/Lovenox 30 mg SQ BID (WT < 150 kg, CrCl > 30 mL/min) AND/OR *Sequential Compression Device (SCD) 5 or more Highest Order ONE of the following medications: *Heparin 5000 units SQ TID (Preferred with Epidurals) *Enoxaparin/Lovenox 40 mg SQ daily (WT < 150 kg, CrCl > 30 mL/min) *Enoxaparin/Lovenox 30 mg SQ daily (WT < 150 kg, CrCl > 10-29 mL/min) *Enoxaparin/Lovenox 30 mg SQ BID (WT < 150 kg, CrCl > 30 mL/min) AND *Sequential Compression Device (SCD) Assessment and Plan - Assessment (1) Dehydration Code(s): E86.0 - Dehydration Status: Acute Plan: 62 year old female s/p Whipple several weeks ago; back with weight loss; dehydration -Will give IVF -May need TPN -Replace electrolytes -Encourage PO intake as tolerated (2) Gastroparesis Code(s): K31.84 - Gastroparesis Status: Chronic - Attending Attestation The exam, history, and the medical decision-making described in the above note were completed with the assistance of the mid-level provider. I reviewed and agree with the findings presented. I attest that I had a [id number] encounter with the patient on the same day, and personally performed and documented my assessment and findings in the medical record. 62yo female with gastroparesis/delayed gastric emptying abdominal exam stable continue IVF, continue PO intake, calorie count H&P: Quality - VTE Deep Vein Thrombosis/Pulmonary Embolism Present on Admission: No
--- NOTE | 2017-12-15 16:14 | P.DCO ---
- Home Health Nursing Order: IV medication administration Instructions: TPN via PICC line - Certification I have seen patient Aby Yadav on 12/15/17. My clinical findings support the need for the requested home health care services because: Patient has SOB, Deconditioned with increased weakness, High risk of falls I certify that my clinical findings support that this patient is homebound because: Post-op weakness
[2017-12-15] MEDS: MULTIVITAMIN IV.SIG SCH (20:21)
[2017-12-15] MEDS: INSULIN HUMAN REGULAR IV.SIG SCH (20:21)
[2017-12-15] MEDS: FOLIC ACID IV.SIG SCH (20:21)
[2017-12-15] MEDS: [UNRECOGNIZED DRUG - OTHER] IV.SIG SCH (20:21)
[2017-12-15] MEDS: Insulin Detemir Inj 1,000 UNIT/10 ML Vial SQ SCH (21:00)
[2017-12-16] MEDS: Insulin NovoLIN Regular Correctional Sugar Inj SQ SCH ×4 (00:21→18:32)
[2017-12-16] MEDS: Aluminum/Magnesium/Simethacone Susp 30 ML UDC PO PRN ×2 (04:06→16:17)
[2017-12-16] MEDS: SYNTHROID 150 MCG PO SCH (06:19)
[2017-12-16] MEDS: Erythromycin Ethylsuccinate Susp 400 MG/5ML 100 ML Bottle PO SCH ×2 (08:41→16:19)
[2017-12-16] MEDS: Pantoprazole Inj 40 MG Vial IV.PUSH SCH ×2 (08:41→21:10)
[2017-12-16] MEDS: Heparin Central Flush 100 UNIT/ML 5 ML Vial IV.FLUSH SCH (08:42)
--- NOTE | 2017-12-16 19:51 | P.PNGS ---
Subjective Patient reports: feels better, tolerating a regular diet Physical Exam Vital signs: Vital Signs 12/15/17 20:00 12/16/17 00:00 12/16/17 08:00 Temperature 97.9 F 97.9 F 98.3 F Pulse Rate 80 81 83 Respiratory Rate 20 20 18 Blood Pressure 116/56 L 119/56 L 122/60 Pulse Oximetry 97 98 97 12/16/17 12:00 12/16/17 16:00 Temperature 98.7 F 98.7 F Pulse Rate 79 85 Respiratory Rate 18 18 Blood Pressure 127/58 L 133/63 Pulse Oximetry 98 100 Intake & Output 12/16/17 12/16/17 12/17/17 06:59 18:59 06:59 Intake Total 2730 / 2730 920 / 920 Balance 2730 / 2730 920 / 920 Intake: IV 2250 / 2250 Intralipid 20% Inj 250 ML @ 31. 250 / 250 25 mls/hr IV.CENTRAL DAILY@1999 [facility] Rx#:[id number] MVI-12 Inj 10 ML Folvite Inj 1 1999 / 1999 MG NovoLIN R Inj 20 UNITS In TPN Fluid 2 Liter 2,000 ML @ 83 mls/hr IV.SIG DAILY@1999 [facility] Rx#:[id number] Oral 480 / 480 920 / 920 Other: # Voids 4 6 # Bowel Movements 3 3 - Constitutional no acute distress - Routine Respiratory Exam Present: CTA bilaterally - Routine Cardiovascular Exam Present: RRR - Routine Abdominal Exam Present: soft - Routine Neurological Exam Present: alert, oriented X3 Assessment and Plan - Assessment (1) Gastroparesis Code(s): K31.84 - Gastroparesis Status: Chronic - Plan 62yo with gastroparesis after Whipple, slowly improving wean and DC TPN plan DC home Monday if continues to tolerate PO well
[2017-12-16] MEDS: FOLIC ACID IV.SIG SCH (21:14)
[2017-12-16] MEDS: MULTIVITAMIN IV.SIG SCH (21:14)
[2017-12-16] MEDS: INSULIN HUMAN REGULAR IV.SIG SCH (21:14)
[2017-12-16] MEDS: [UNRECOGNIZED DRUG - OTHER] IV.SIG SCH (21:14)
[2017-12-17] MEDS: Insulin NovoLIN Regular Correctional Sugar Inj SQ SCH ×2 (00:36→06:43)
[2017-12-17] MEDS: Erythromycin Ethylsuccinate Susp 400 MG/5ML 100 ML Bottle PO SCH ×3 (02:38→09:20)
[2017-12-17] MEDS: SYNTHROID 150 MCG PO SCH (06:39)
[2017-12-17] MEDS: Pantoprazole Inj 40 MG Vial IV.PUSH SCH ×2 (07:54→09:19)
--- NOTE | 2017-12-18 15:13 | P.DS ---
Date of admission: 11/30/17 10:11 Primary care physician: Celina Carrasquillo MD Attending physician on discharge: Bruno Beaulieu Anticipated date of discharge: 12/17/17 Brief History from admission: This is a 62 year old patient well known to our service after having a a Whipple procedure done on October 18, 2017. She was sent home on a soft diet. She has been unable to tolerate the diet. She is unable to stay hydrated. She has been admitted for IVF and nutrition. DS: Diagnosis - Discharge Diagnosis (1) Dehydration Status: Acute (2) Gastroparesis Status: Chronic DS: Medications - Discharge Medications Prescriptions: erythromycin ethylsuccinate [EryPed 400] 400 mg PO Q8H #90 dose DS: Summary Hospital Course: This is a 62 year old female post op 6 weeks from [place]. The patient was admitted for weight loss and unable to tolerate PO. The patient was admitted for IV hydration and TPN. The patient did have an EGD during the admission. The patient was able to maintain calories by PO intake. Her TPN was weaned off and the PICC line was removed. - Time Spent with Patient Total time spent providing and/or coordinating discharge services: Less than 30 minutes - Quality: VTE Deep Vein Thrombosis/Pulmonary Embolism Present on Admission: No Exam Narrative: Alert and awake Abd: well healing incisions Results Procedures completed during hospitalization: s/p Whipple in October 2017 Discharge Plan - Discharge Disposition Patient Disposition: 01 Discharge Home - Discharge Condition Condition: Good - Discharge Order Discharge Orders: Discharge Order (Routine); Ordered 12/17/17 Ordered By: Bruno Beaulieu - Discharge Details Anticipated Discharge Date: 12/17/17 Discharge Comment: DC home when tolerating PO - Physicians Team Primary Care Provider: Celina Carrasquillo Attending Provider: Bruno Beaulieu Other Providers: [employer] ; Alex Byrne MD ; [facility],[place] - Rxs /Orders / Referrals /Forms Prescriptions: New diphenhydramine HCl 50 mg/mL Solution 25 mg IV.PUSH Q6H PRN (Reason: Itching) RF: 0 erythromycin ethylsuccinate [EryPed 400] 400 mg/5 mL Suspension For Reconstitution 400 mg PO Q8H Qty: 90 RF: 0 Continue acetaminophen [Tylenol] 325 mg Tablet 325 mg PO TID PRN (Reason: Pain) cetirizine [Zyrtec] 10 mg Tablet 10 mg PO DAILY cholecalciferol (vitamin D3) [Vitamin D3] 5,000 unit Tablet 5,000 unit PO DIRECTED cholestyramine (with sugar) 4 gram Powder 4 g PO TID diphenhydramine HCl [Children's Allergy (diphenhyd)] 12.5 mg/5 mL Elixir 12.5 mg PO TID PRN (Reason: Itching) docusate sodium 100 mg Tablet 100 mg PO DAILY PRN (Reason: Constipation) ergocalciferol (vitamin D2) [Vitamin D2] 50,000 unit Capsule 50,000 unit PO 3XW hydroxyzine HCl 25 mg Tablet 25 mg PO QID PRN (Reason: Itching) levothyroxine [Synthroid] 150 mcg Tablet 150 mcg PO DIRECTED levothyroxine [Synthroid] 75 mcg Tablet 75 mcg PO WE loratadine [Claritin] 10 mg Tablet 10 mg PO HS lorazepam 2 mg Tablet 1 mg PO QID PRN (Reason: Anxiety) nystatin 100,000 unit/gram Cream 1 applic TOPICAL BID omega 1-ird-nmc-fish oil [Fish Oil] 1,000 mg (120 mg-180 mg) Capsule 1 cap PO DAILY omeprazole 20 mg Capsule,Delayed Release(Dr/Ec) 20 mg PO DAILY zolpidem [Ambien] 10 mg Tablet 1 tab PO HS Referrals: Celina Carrasquillo MD [Primary Care Provider] - See Instructions - Discharge Instructions Patient Printed Instructions: Erythromycin (By mouth), Diphenhydramine (By mouth), Ondansetron (By mouth), Pantoprazole (By mouth)
== END 2017-12-17 10:25 | disposition home or self-care (01) ==
LOC: PH3 10:11
PROVIDERS: ADMIT Surgery; ATTEND Surgery